=== PATIENT | female | born 1965 | race Caucasian/White ===

== ENCOUNTER 2016-05-13 21:18 | Emergency (ER) | payer MEDICARE, OTHER ==
[2016-05-13 21:33] VITALS: BP 131/65; PULSE 100; RESP 20; TEMP 98.4
[2016-05-13] MEDS ORDERED: FLUTICASONE 50MCG/SPRAY NASAL 16GM EA NOSTRIL STA (21:50)
--- NOTE | 2016-05-13 21:55 | ED ---
ENT HPI - General Chief complaint: ENT Stated complaint: Sore Throat/Ear Pain Time Seen by Provider: 05/13/16 21:44 Source: patient, RN notes reviewed Mode of arrival: ambulatory Limitations: no limitations - History of Present Illness Initial comments: 50-year-old female presents emergency Department chief complaint of right ear pain. Patient states that she has a history of his fluid behind the right ear and she needs to have sinus surgery however insurance has fell through. Patient states she is here because the fluid his back. Patient states with antibiotics about a month ago for this that didn't cleared up but it has returned. Patient states that she is also out of her Flonase spray as well. Patient states that she was concerned due to her continued symptoms so she thought that she should be evaluated. Patient denies any recent fever, chills, shortness of breath, chest pain, back pain, abdominal pain, nausea vomiting, numbness or tingling, dysuria or hematuria, constipation or diarrhea, headaches or visual changes, or any other current symptoms. - Related Data Home Medications Medication Instructions Recorded Confirmed Butalb/APAP/Caff 50-325-40Mg 1 tab PO Q4H PRN 09/21/15 05/13/16 [Fioricet 50-325-40] Morphine Sulfate ER [Ms Contin 30 mg PO Q12HR 09/21/15 05/13/16 30Mg] clonazePAM [KlonoPIN] 1 mg PO BID 01/18/16 05/13/16 Previous Rx's Medication Instructions Recorded Ciprofloxacin HCl [Cipro] 500 mg PO Q12HR #14 tablet 05/13/16 Allergies Allergy/AdvReac Type Severity Reaction Status Date / Time haloperidol [From Haldol] Allergy Unknown Verified 05/13/16 21:33 haloperidol lactate Allergy Unknown Verified 05/13/16 21:33 [From Haldol] latex Allergy Unknown Verified 05/13/16 21:33 aripiprazole [From Abilify] AdvReac Unknown Verified 05/13/16 21:33 gabapentin [From Neurontin] AdvReac Unknown Verified 05/13/16 21:33 risperidone [From Risperdal] AdvReac Unknown Verified 05/13/16 21:33 tramadol HCl [From Ultram] AdvReac Unknown Verified 05/13/16 21:33 ziprasidone HCl [From Geodon] AdvReac Unknown Verified 05/13/16 21:33 ziprasidone mesylate AdvReac Unknown Verified 05/13/16 21:33 [From Grant] Review of Systems ROS Statement: Those systems with pertinent positive or pertinent negative responses have been documented in the HPI. ROS Other: All systems not noted in ROS Statement are negative. Past Medical History Past Medical History: Fibromyalgia, Hypertension, Liver Disease, Osteoarthritis (OA), Seizure Disorder Additional Past Medical History / Comment(s): Other HX: hep c, chronic pain issues= chronic headaches chronic back pain, bronchitis, arthirits in back and bilateral hips. states quit iv drugs a couple of months ago History of Any Multi-Drug Resistant Organisms: None Reported Past Surgical History: Appendectomy, Back Surgery, Hysterectomy, Tubal Ligation Additional Past Surgical History / Comment(s): brain surgery for aneurysm has titanium clip in place., back surgery L4-L5, oral surgery. Past Anesthesia/Blood Transfusion Reactions: No Reported Reaction, Motion Sickness Additional Past Anesthesia/Blood Transfusion Reaction / Comment(s): Pt states she has never recieved blood. vertigo, clauterphobia Past Psychological History: Anxiety, Depression, Panic Disorder, PTSD Additional Psychological History / Comment(s): Pt resides in an apartment with her spouse. She states she used cocaine last nite and has a hx of IV drug use. She states she last used heroin 4-5 days ago. She states she is depressed and inactive. She lays around all the time. She denies any suicidal thoughts or plans stating " that is just selfish." She can drive. Smoking Status: Current every day smoker Past Alcohol Use History: None Reported Additional Past Alcohol Use History / Comment(s): Pt states she started smoking at age 11 yrs old. She smokes about a ppd. Past Drug Use History: None Reported Additional Drug Use History / Comment(s): Pt states she used cocaine last nite but doen't use it very often-only if someone else has bought it. She has hx of IV drug use and states she last used heroin 4-5days ago. - Past Family History Father Family Medical History: Cancer Additional Family Medical History / Comment(s): Father of throat cancer at 78 yrs of age. Mother Additional Family Medical History / Comment(s): Mother of a brain aneurysm at age 44. General Exam - General Exam Comments Initial Comments: General exam: Alert, active, comfortable in no apparent distress Head: Normocephalic Eyes: Normal reaction of pupils, equal size, normal range of extraocular motion Ears: normal external ear canals, pink tympanic membranes with normal cone of light fluid is noted behind both ears. Nose: clear with pink turbinates Throat: no erythema or exudates with normal sized tonsils Neck: no masses, no nuchal rigidity Chest: no chest wall deformity Lungs: equal air entry with no crackles or wheeze CVS: S1 and S2 normal with no audible mumurs, regular rhythm Abdomen: no hepatosplenomegaly, normal bowel sounds, no guarding or rigidity Genitourinary: [MALE: normal genitals with both testes in scrotum, no inguinal swelling] Spine: no scoliosis or deformity Skin: no rashes Neurological: No focal deficits, tone is normal in all 4 extremities Limitations: no limitations Course Vital Signs 05/13/16 21:31 Temperature 98.4 F Pulse Rate 100 Respiratory 20 Rate Blood Pressure 131/65 O2 Sat by Pulse 94 L Oximetry Medical Decision Making - Medical Decision Making 50-year-old female presents with what appears to be fluid behind the ears. At this time most likely due to sinus disease.Patient antibiotic. We will give her Flonase. We discussed follow-up with ENT and return parameters. Patient states that she understood all questions have been answered. She'll be discharged home. Disposition Clinical Impression: Fluid level behind tympanic membrane of both ears Disposition: HOME SELF-CARE Condition: Stable Instructions: Earache (ED) Additional Instructions: Please use medication as discussed. Please follow up with family doctor if symptoms have not improved over the next two days. Please return to the emergency room if your symptoms increase or worsen or for any other concerns. Prescriptions: Ciprofloxacin HCl [Cipro] 500 mg PO Q12HR #14 tablet Referrals: Zack Braxton DO [Primary Care Provider] - 1-2 days Time of Disposition: 21:54
== END 2016-05-13 22:12 | disposition home or self-care (01) ==
LOC: EC 21:18
DX: H93.93 Unspecified disorder of ear, bilateral (principal); G40.909 Epilepsy, unspecified, not intractable, without status epilepticus; M79.7 Fibromyalgia; M19.90 Unspecified osteoarthritis, unspecified site; F17.200 Nicotine dependence, unspecified, uncomplicated; Z79.891 Long term (current) use of opiate analgesic; Z79.899 Other long term (current) drug therapy; Z88.6 Allergy status to analgesic agent; Z88.8 Allergy status to other drugs, medicaments and biological substances; Z91.040 Latex allergy status
CPT/HCPCS: 99282

== ENCOUNTER 2016-05-16 08:29 | Emergency (ER) | payer SELFPAY ==
[2016-05-16 08:36] VITALS: BP 160/95; PULSE 101; RESP 22; TEMP 98.9
[2016-05-16] MEDS ORDERED: MECLIZINE 12.5 MG TAB PO STA (09:03)
[2016-05-16] MEDS ORDERED: MECLIZINE 25 MG TAB PO STA (09:05)
--- NOTE | 2016-05-16 09:05 | ED ---
General Adult HPI - General Chief complaint: Headache Stated complaint: vomitting, ENT Time Seen by Provider: 05/16/16 08:46 Source: patient, RN notes reviewed Mode of arrival: ambulatory Limitations: no limitations - History of Present Illness Initial comments: Patient 50-year-old female who presents emergency room today with a chief complaint of sinusitis. She does admit that she's been on antibiotics over the last month. Patient was over at [facility] emergency room this morning. She states she was told that she had vertigo. States she was given meclizine. She does admit that she is feeling somewhat better at this time. Patient does admit that she's had the room spinning on her. Does admit that she 's had vertigo in the past. States she does not have meclizine at home that she can take. Patient has been on antibiotics for her ear infection and sinus infection. She does admit that there has been improvement. She denies any other complaints. Patient denies any recent fever, chills, shortness of breath, chest pain, back pain, abdominal pain, nausea or vomiting, numbness or tingling , dysuria or hematuria, constipation or diarrhea, headaches or visual changes, or any other complaints. - Related Data Home Medications Medication Instructions Recorded Confirmed Morphine Sulfate ER [Ms Contin 30 mg PO Q12HR 09/21/15 05/16/16 30Mg] clonazePAM [KlonoPIN] 1 mg PO BID 01/18/16 05/16/16 Antivert (Unknown Dose) 1 tab PO ONCE 05/16/16 05/16/16 Previous Rx's Medication Instructions Recorded Ciprofloxacin HCl [Cipro] 500 mg PO Q12HR #14 tablet 05/13/16 Meclizine [Antivert] 25 mg PO DAILY 10 Days 05/16/16 Allergies Allergy/AdvReac Type Severity Reaction Status Date / Time haloperidol [From Haldol] Allergy Unknown Verified 05/16/16 08:50 haloperidol lactate Allergy Unknown Verified 05/16/16 08:50 [From Haldol] latex Allergy Unknown Verified 05/16/16 08:50 aripiprazole [From Abilify] AdvReac Unknown Verified 05/16/16 08:50 gabapentin [From Neurontin] AdvReac Unknown Verified 05/16/16 08:50 risperidone [From Risperdal] AdvReac Unknown Verified 05/16/16 08:50 tramadol HCl [From Ultram] AdvReac Unknown Verified 05/16/16 08:50 ziprasidone HCl [From Geodon] AdvReac Unknown Verified 05/16/16 08:50 ziprasidone mesylate AdvReac Unknown Verified 05/16/16 08:50 [From Geodon] Review of Systems ROS Statement: Those systems with pertinent positive or pertinent negative responses have been documented in the HPI. ROS Other: All systems not noted in ROS Statement are negative. Past Medical History Past Medical History: Fibromyalgia, Hypertension, Liver Disease, Osteoarthritis (OA), Seizure Disorder Additional Past Medical History / Comment(s): Other HX: hep c, chronic pain issues= chronic headaches chronic back pain, bronchitis, arthirits in back and bilateral hips. states quit iv drugs a couple of months ago History of Any Multi-Drug Resistant Organisms: None Reported Past Surgical History: Appendectomy, Back Surgery, Hysterectomy, Tubal Ligation Additional Past Surgical History / Comment(s): brain surgery for aneurysm has titanium clip in place., back surgery L4-L5, oral surgery. Past Anesthesia/Blood Transfusion Reactions: No Reported Reaction, Motion Sickness Additional Past Anesthesia/Blood Transfusion Reaction / Comment(s): Pt states she has never recieved blood. vertigo, clauterphobia Past Psychological History: Anxiety, Depression, Panic Disorder, PTSD Additional Psychological History / Comment(s): Pt resides in an apartment with her spouse. She states she used cocaine last nite and has a hx of IV drug use. She states she last used heroin 4-5 days ago. She states she is depressed and inactive. She lays around all the time. She denies any suicidal thoughts or plans stating " that is just selfish." She can drive. Smoking Status: Current every day smoker Past Alcohol Use History: None Reported Additional Past Alcohol Use History / Comment(s): Pt states she started smoking at age 11 yrs old. She smokes about a ppd. Past Drug Use History: None Reported Additional Drug Use History / Comment(s): Pt states she used cocaine last nite but doen't use it very often-only if someone else has bought it. She has hx of IV drug use and states she last used heroin 4-5days ago. - Past Family History Father Family Medical History: Cancer Additional Family Medical History / Comment(s): Father of throat cancer at 78 yrs of age. Mother Additional Family Medical History / Comment(s): Mother of a brain aneurysm at age 44. General Exam - General Exam Comments Initial Comments: General: The patient is awake and alert, in no distress, and does not appear acutely ill. Eye: Pupils are equal, round and reactive to light, extra-ocular movements are intact. No nystagmus. There is normal conjunctiva bilaterally. No signs of icterus. Ears, nose, mouth and throat: There are moist mucous membranes and no oral lesions. TMs clear bilaterally. Neck: The neck is supple, there is no tenderness or JVD. Cardiovascular: There is a regular rate and rhythm. No murmur, rub or gallop is appreciated. Respiratory: Lungs are clear to auscultation, respirations are non-labored, breath sounds are equal. No wheezes, stridor, rales, or rhonchi. Gastrointestinal: Soft, non-distended, non-tender abdomen without masses or organomegaly noted. There is no rebound or guarding present. No CVA tenderness. Bowel sounds are unremarkable. Musculoskeletal: Normal ROM, no tenderness. Strength 5/5. Sensation intact. Pulses equal bilaterally 2+. Neurological: A&O x 3. CN II-XII intact, There are no obvious motor or sensory deficits. Coordination appears grossly intact. Speech is normal. Skin: Skin is warm and dry and no rashes or lesions are noted. Psychiatric: Cooperative, appropriate mood & affect, normal judgment. Limitations: no limitations Course Vital Signs 05/16/16 08:34 Temperature 98.9 F Pulse Rate 101 H Respiratory 22 Rate Blood Pressure 160/95 O2 Sat by Pulse 97 Oximetry Medical Decision Making - Medical Decision Making Patient reexamined at this time shows no signs of distress. She does admit that she's feeling better. Patient advised continue previously prescribed medications. Will be given a prescription for meclizine. Advised to follow-up family doctor over the next 2 days or return here to emergency room if any symptoms increase or worsen or for new concerns. Disposition Clinical Impression: Sinusitis Disposition: HOME SELF-CARE Condition: Good Instructions: Sinusitis (ED) Additional Instructions: Please use medication as discussed. Please follow-up with family doctor in the next 2 days of symptoms have not improved. Please return to emergency room if the symptoms increase or worsen or for any other concerns. Prescriptions: Meclizine [Antivert] 25 mg PO DAILY 10 Days Time of Disposition: 09:04
== END 2016-05-16 09:10 | disposition home or self-care (01) ==
LOC: EC 08:29
DX: J32.9 Chronic sinusitis, unspecified (principal); R42 Dizziness and giddiness; M79.7 Fibromyalgia; M19.90 Unspecified osteoarthritis, unspecified site; G40.909 Epilepsy, unspecified, not intractable, without status epilepticus; F17.200 Nicotine dependence, unspecified, uncomplicated; Z79.899 Other long term (current) drug therapy; Z91.040 Latex allergy status; Z88.6 Allergy status to analgesic agent; Z88.8 Allergy status to other drugs, medicaments and biological substances
CPT/HCPCS: 99283

== ENCOUNTER 2016-05-17 19:39 | Emergency (ER) | payer SELFPAY ==
[2016-05-17 20:20] VITALS: BP 138/89; PULSE 71; RESP 18; TEMP 98
--- NOTE | 2016-05-17 20:58 | ED ---
General Adult HPI - General Chief complaint: ENT Stated complaint: nasal problem Time Seen by Provider: 05/17/16 20:34 Source: patient, RN notes reviewed Mode of arrival: ambulatory Limitations: no limitations - History of Present Illness Initial comments: This is a 50-year-old female who presents with complaints of possible sinus infection. Patient denies any congestion or sinus drainage. Patient states she is currently on ciprofloxacin. Patient states she has been on this antibiotic for 1 month, but is not feeling better. Patient states she is taking Antivert for vertigo. Patient's states she was diagnosed with vertigo one month ago. Patient states she feels that she has a sore inside of her nose. Patient denies trying any nasal sprays or nasal rinses for her symptoms. Patient admits to mild cough but states she is a smoker. Patient denies any fevers. Patient denies any recent shortness breath, chest pain, abdominal pain, nausea/vomiting/ diarrhea, back pain, numbness, tingling, hematuria, headache, or visual changes , or any other complaints. - Related Data Home Medications Medication Instructions Recorded Confirmed Morphine Sulfate ER [Ms Contin 30 mg PO Q12HR 09/21/15 05/17/16 30Mg] clonazePAM [KlonoPIN] 1 mg PO BID 01/18/16 05/17/16 Antivert (Unknown Dose) 1 tab PO ONCE 05/16/16 05/17/16 Previous Rx's Medication Instructions Recorded Ciprofloxacin HCl [Cipro] 500 mg PO Q12HR #14 tablet 05/13/16 Meclizine [Antivert] 25 mg PO DAILY 10 Days 05/16/16 Allergies Allergy/AdvReac Type Severity Reaction Status Date / Time haloperidol [From Haldol] Allergy Unknown Verified 05/16/16 08:50 haloperidol lactate Allergy Unknown Verified 05/16/16 08:50 [From Haldol] latex Allergy Unknown Verified 05/16/16 08:50 aripiprazole [From Abilify] AdvReac Unknown Verified 05/16/16 08:50 gabapentin [From Neurontin] AdvReac Unknown Verified 05/16/16 08:50 risperidone [From Risperdal] AdvReac Unknown Verified 05/16/16 08:50 tramadol HCl [From Ultram] AdvReac Unknown Verified 05/16/16 08:50 ziprasidone HCl [From Geodon] AdvReac Unknown Verified 05/16/16 08:50 ziprasidone mesylate AdvReac Unknown Verified 05/16/16 08:50 [From Grant] Review of Systems ROS Statement: Those systems with pertinent positive or pertinent negative responses have been documented in the HPI. ROS Other: All systems not noted in ROS Statement are negative. Past Medical History Past Medical History: Fibromyalgia, Hypertension, Liver Disease, Osteoarthritis (OA), Seizure Disorder Additional Past Medical History / Comment(s): Other HX: hep c, chronic pain issues= chronic headaches chronic back pain, bronchitis, arthirits in back and bilateral hips. states quit iv drugs a couple of months ago History of Any Multi-Drug Resistant Organisms: None Reported Past Surgical History: Appendectomy, Back Surgery, Hysterectomy, Tubal Ligation Additional Past Surgical History / Comment(s): brain surgery for aneurysm has titanium clip in place., back surgery L4-L5, oral surgery. Past Anesthesia/Blood Transfusion Reactions: No Reported Reaction, Motion Sickness Additional Past Anesthesia/Blood Transfusion Reaction / Comment(s): Pt states she has never recieved blood. vertigo, clauterphobia Past Psychological History: Anxiety, Depression, Panic Disorder, PTSD Additional Psychological History / Comment(s): Pt resides in an apartment with her spouse. She states she used cocaine last nite and has a hx of IV drug use. She states she last used heroin 4-5 days ago. She states she is depressed and inactive. She lays around all the time. She denies any suicidal thoughts or plans stating " that is just selfish." She can drive. Smoking Status: Current every day smoker Past Alcohol Use History: None Reported Additional Past Alcohol Use History / Comment(s): Pt states she started smoking at age 11 yrs old. She smokes about a ppd. Past Drug Use History: None Reported Additional Drug Use History / Comment(s): Pt states she used cocaine last nite but doen't use it very often-only if someone else has bought it. She has hx of IV drug use and states she last used heroin 4-5days ago. - Past Family History Father Family Medical History: Cancer Additional Family Medical History / Comment(s): Father of throat cancer at 78 yrs of age. Mother Additional Family Medical History / Comment(s): Mother of a brain aneurysm at age 44. General Exam - General Exam Comments Initial Comments: General: The patient is awake and alert, in no distress, and does not appear acutely ill. Eye: Pupils are equal, round and reactive to light, extra-ocular movements are intact. No pain with extraocular movements. No nystagmus. There is normal conjunctiva bilaterally. No signs of icterus. Ears: TMs pink and pearly with intact cone of light bilaterally. Normal external ear canals Nose: Nasal turbinates erythematous and moist. Mouth and throat: There are moist mucous membranes and no oral lesions. Neck: The neck is supple,no meningismus, there is no tenderness or JVD. Cardiovascular: There is a regular rate and rhythm. No murmur, rub or gallop is appreciated. Respiratory: Lungs are clear to auscultation, respirations are non-labored, breath sounds are equal. No wheezes, stridor, rales, or rhonchi. Musculoskeletal: Normal ROM, no tenderness. Strength 5/5. Sensation intact. Radial pulses equal bilaterally 2+. Neurological: A&O x 3. CN II-XII intact, There are no obvious motor or sensory deficits. Coordination appears grossly intact. Speech is normal. Skin: Skin is warm and dry and no rashes or lesions are noted. Psychiatric: Abrasive, appropriate mood & affect, normal judgment. Limitations: no limitations Course Vital Signs 05/17/16 20:16 Temperature 98.0 F Pulse Rate 71 Respiratory 18 Rate Blood Pressure 138/89 O2 Sat by Pulse 98 Oximetry Medical Decision Making - Medical Decision Making During the interview patient was very abrasive and started stating "why wont anyone do anything for me." I discussed that patient needs to tell me what her symptoms are before I can do anything for her, but the patient would not explain in detail. Patient stated she came in for sinusitis but patient denies symptoms of sinusitis such as congestion, sinus pressure, and fever. I discussed options for nasal spray for nasal rinses to help with her symptoms. I discussed that patient should continue her current course of antibiotics. I discussed doing a chest x-ray as patient admitted to cough. I discussed that I would be right back to talk with the patient further and at this time patient eloped. Disposition Clinical Impression: Hx of sinusitis, Hx of vertigo Disposition: Left Against Medical Advice Referrals: Zack Braxton, [Primary Care Provider] - 1-2 days Time of Disposition: 21:59
== END 2016-05-17 20:55 | disposition left against medical advice (07) ==
LOC: EC 19:39
DX: Z87.09 Personal history of other diseases of the respiratory system (principal); R05 Cough; R42 Dizziness and giddiness; G40.909 Epilepsy, unspecified, not intractable, without status epilepticus; M79.7 Fibromyalgia; M19.90 Unspecified osteoarthritis, unspecified site; F41.0 Panic disorder [episodic paroxysmal anxiety]; F41.9 Anxiety disorder, unspecified; F17.200 Nicotine dependence, unspecified, uncomplicated; Z79.891 Long term (current) use of opiate analgesic; Z79.899 Other long term (current) drug therapy; Z91.040 Latex allergy status; Z88.8 Allergy status to other drugs, medicaments and biological substances; Z86.19 Personal history of other infectious and parasitic diseases
CPT/HCPCS: 99282

== ENCOUNTER 2016-05-29 08:29 | Emergency (ER) | payer MEDICARE, OTHER ==
[2016-05-29 08:54] VITALS: BP 105/65; RESP 18; TEMP 98.3
[2016-05-29] MEDS ORDERED: SODIUM CHLORIDE 0.9% 500 ML IV STA (09:14)
[2016-05-29] MEDS ORDERED: SODIUM CHLORIDE 0.9% 1,000 ML IV STA (09:14)
[2016-05-29] MEDS ORDERED: IPRATROPIUM-ALBUTEROL 3 ML NEB INHALATION STA (09:14)
[2016-05-29] MEDS ORDERED: methylPREDNISolone SOD SUCCI 125 MG/2 ML VIAL IV STA (09:14)
[2016-05-29] MEDS ORDERED: ONDANSETRON 4 MG/2 ML VIAL IVP STA (09:16)
[2016-05-29] MEDS ORDERED: ACETAMINOPHEN TAB 500 MG TAB PO STA (09:17)
--- NOTE | 2016-05-29 09:30 | ED ---
General Adult HPI - General Chief complaint: Upper Respiratory Infection Stated complaint: Diff breathing Time Seen by Provider: 05/29/16 08:52 Source: patient Mode of arrival: wheelchair - History of Present Illness Initial comments: This 50-year-old white female presents with the complaint of a cough which is been present for approximate 4 days. She complains of chest and nasal congestion. She has tried updraft at home of albuterol with limited relief. She does relate a degree of hemoptysis with her cough but denies any colored production. She feels short of breath but denies any chest pain or fever. She states that she is having some abdominal pain which she feels is related to her significant cough. She complains of some chronic low back pain on the left side. She has had some nausea but no vomiting. No other complaints or modifying factors. She does relate that she is currently on Diflucan for a fungal sinusitis which she's been dealing with for the past couple of months. This medication has significantly helped her sinusitis. - Related Data Home Medications Medication Instructions Recorded Confirmed Morphine Sulfate ER [Ms Contin 30 mg PO Q12HR 09/21/15 05/29/16 30Mg] clonazePAM [KlonoPIN] 1 mg PO BID 01/18/16 05/29/16 Fluconazole [Diflucan] 200 mg PO DAILY 05/29/16 05/29/16 Allergies Allergy/AdvReac Type Severity Reaction Status Date / Time haloperidol [From Haldol] Allergy Unknown Verified 05/29/16 09:27 haloperidol lactate Allergy Unknown Verified 05/29/16 09:27 [From Haldol] ketorolac [From Toradol] Allergy Anaphylaxis Verified 05/29/16 09:27 latex Allergy Unknown Verified 05/29/16 09:27 aripiprazole [From Abilify] AdvReac Unknown Verified 05/29/16 09:27 gabapentin [From Neurontin] AdvReac Unknown Verified 05/29/16 09:27 risperidone [From Risperdal] AdvReac Unknown Verified 05/29/16 09:27 tramadol HCl [From Ultram] AdvReac Unknown Verified 05/29/16 09:27 ziprasidone HCl [From Geodon] AdvReac Unknown Verified 05/29/16 09:27 ziprasidone mesylate AdvReac Unknown Verified 05/29/16 09:27 [From Geodon] Review of Systems ROS Statement: Those systems with pertinent positive or pertinent negative responses have been documented in the HPI. ROS Other: All systems not noted in ROS Statement are negative. Past Medical History Past Medical History: Fibromyalgia, Hypertension, Liver Disease, Osteoarthritis (OA), Seizure Disorder Additional Past Medical History / Comment(s): Other HX: hep c, chronic pain issues= chronic headaches chronic back pain, bronchitis, arthirits in back and bilateral hips History of Any Multi-Drug Resistant Organisms: None Reported Past Surgical History: Appendectomy, Back Surgery, Hysterectomy, Tubal Ligation Additional Past Surgical History / Comment(s): brain surgery for aneurysm has titanium clip in place., back surgery L4-L5, oral surgery. Past Anesthesia/Blood Transfusion Reactions: No Reported Reaction, Motion Sickness Additional Past Anesthesia/Blood Transfusion Reaction / Comment(s): Pt states she has never recieved blood. vertigo, clauterphobia Past Psychological History: Anxiety, Depression, Panic Disorder, PTSD Additional Psychological History / Comment(s): Pt resides in an apartment with her spouse. She states she used cocaine last nite and has a hx of IV drug use. She states she last used heroin 4-5 days ago. She states she is depressed and inactive. She lays around all the time. She denies any suicidal thoughts or plans stating " that is just selfish." She can drive. Smoking Status: Current every day smoker Past Alcohol Use History: None Reported Additional Past Alcohol Use History / Comment(s): Pt states she started smoking at age 11 yrs old. She smokes about a ppd. Past Drug Use History: None Reported Additional Drug Use History / Comment(s): Pt states she used cocaine last nite but doen't use it very often-only if someone else has bought it. She has hx of IV drug use and states she last used heroin 4-5days ago. - Past Family History Father Family Medical History: Cancer Additional Family Medical History / Comment(s): Father of throat cancer at 78 yrs of age. Mother Additional Family Medical History / Comment(s): Mother of a brain aneurysm at age 44. General Exam - General Exam Comments Initial Comments: GENERAL: The patient is well nourished and well hydrated. VITAL SIGNS: Heart rate, blood pressure, respiratory rate reviewed as recorded in nurse's notes. EYES: Pupils are round and reactive. Extraocular movements are intact. No conjunctival / lid redness or swelling. ENT: No external evidence of injury, swelling, or ecchymosis. Airway is patent. Throat is clear. NECK: Nontender. No swelling or evidence of injury. No subcutaneous emphysema. Trachea is midline. No thyroid mass. HEART: Regular rate and rhythm. Good peripheral pulses. LUNGS/CHEST: There is wheezing noted bilaterally. No ecchymosis, subcutaneous emphysema, or tenderness. ABDOMEN: Abdomen soft without tenderness. No palpable masses or organomegaly. No peritoneal signs. No abdominal wall swelling or ecchymosis. EXTREMITIES: No extremity tenderness. Normal muscle tone and function. No thoracolumbar tenderness. NEUROLOGIC: Sensation is grossly intact. Cranial nerve exam reveals face is symmetrical, tongue is midline, speech is clear. SKIN: No abrasions or ecchymosis is noted. No induration or masses noted. PSYCHIATRIC: Alert and oriented. Appears mildly anxious. Course Vital Signs 05/29/16 05/29/16 05/29/16 08:51 09:39 10:00 Temperature 98.3 F Pulse Rate 85 84 88 Respiratory 18 Rate Blood Pressure 105/65 O2 Sat by Pulse 95 Oximetry Medical Decision Making - Medical Decision Making The patient was seen and examined. All diagnostics were reviewed. The chest and abdominal x-rays did not show any acute process. The laboratory was fairly unremarkable other than a slight transaminitis. The influenza was negative. The patient received a DuoNeb breathing treatment. She related to the nurse that she had remarkable improvement. I was still waiting for the radiologist to read the x-rays and for her labs to come back when she apparently decided to leave the ER. She told the nurse that she felt better with the breathing treatment and left AGAINST MEDICAL ADVICE prior to final disposition. - Lab Data Result diagrams: 05/29/16 09:45 05/29/16 09:45 Lab Results 05/29/16 05/29/16 05/29/16 Range/Units 09:45 09:45 09:45 WBC 5.5 (3.8-10.6) k/uL RBC 4.10 (3.80-5.40) m/uL Hgb 12.2 (11.4-16.0) gm/dL Hct 37.1 (34.0-46.0) % MCV 90.4 (80.0-100.0) fL MCH 29.7 (25.0-35.0) pg MCHC 32.9 (31.0-37.0) g/dL RDW 13.1 (11.5-15.5) % Sodium 139 (137-145) mmol/L Potassium 5.0 (3.5-5.1) mmol/L Chloride 105 (98-107) mmol/L Carbon Dioxide 24 (22-30) mmol/L Anion Gap 10 mmol/L BUN 11 (7-17) mg/dL Creatinine 0.65 (0.52-1.04) mg/dL Est GFR (MDRD) Af Amer >60 (>60 ml/min/1.73 sqM) Est GFR (MDRD) Non-Af >60 (>60 ml/min/1.73 sqM) Glucose 145 H (74-99) mg/dL Calcium 8.8 (8.4-10.2) mg/dL Total Bilirubin 0.4 (0.2-1.3) mg/dL AST 58 H (14-36) U/L ALT 64 H (9-52) U/L Alkaline Phosphatase 60 (38-126) U/L Total Protein 6.6 (6.3-8.2) g/dL Albumin 3.8 (3.5-5.0) g/dL Amylase <30 L (30-110) U/L Lipase 55 (23-300) U/L Influenza Type A RNA Not Detected (Not Detectd) Influenza Type B (PCR) Not Detected (Not Detectd) Disposition Clinical Impression: Bronchitis, Hemoptysis, COPD (chronic obstructive pulmonary disease), Tobacco abuse, Abdominal pain, Transaminitis, Dyspnea, Chronic pain Disposition: Left Against Medical Advice Condition: Fair Referrals: Zack Braxton DO [Primary Care Provider] - 1-2 days Time of Disposition: 11:00
[2016-05-29 10:11] VITALS: PULSE 88
--- NOTE | 2016-05-29 10:29 | XR ---
EXAMINATION TYPE: XR chest 2V DATE OF EXAM: 05/29/2016 10:16 AM COMPARISON: Prior chest x-ray October 26, 2014. HISTORY: Difficulty in breathing. TECHNIQUE: Frontal and lateral views of the chest are obtained. FINDINGS: There is no focal air space opacity, pleural effusion, or pneumothorax seen. Underlying e mphysematous change is not excluded. The cardiac silhouette size is within normal limits. The osseo us structures are intact. IMPRESSION: No acute cardiopulmonary process. No significant change from prior.
[2016-05-29 10:34] LABS: Basophils % (A) 0 %; CH 29.1; CHCM 32.4; Eosinophils # (A) 0.4 k/uL (0-0.7); Eosinophils % (A) 7 %; HCT 37.1 % (34.0-46.0); HDW 2.35; HGB 12.2 gm/dL (11.4-16.0); Luc # (Auto) 0.12; Luc % (Auto) 2; Lymphocytes # (A) 1.3 k/uL (1.0-4.8); Lymphocytes % (A) 23 %; MCH 29.7 pg (25.0-35.0); MCHC 32.9 g/dL (31.0-37.0); MCV 90.4 fL (80.0-100.0); Mean Platelet Volume 8.5; Monocytes # (A) 0.3 k/uL (0-1.0); Monocytes % (A) 6 %; Neutrophils # (A) 3.4 k/uL (1.3-7.7); Neutrophils % (A) 62 %; RDW 13.1 % (11.5-15.5); WBC 5.5 k/uL (3.8-10.6); WBC (Perox) 5.92
[2016-05-29 10:37] LABS: ALT 64 U/L (9-52); AST 58 U/L (14-36); Alkaline Phosphatase 60 U/L (38-126); Amylase <30 U/L (30-110); Anion Gap 10 mmol/L; Blood Urea Nitrogen 11 mg/dL (7-17); Calcium 8.8 mg/dL (8.4-10.2); Carbon Dioxide 24 mmol/L (22-30); Chloride 105 mmol/L (98-107); Glucose 145 mg/dL (74-99); Non-African American GFR(MDRD) >60 (>60 ml/min/1.73 sqM); Sodium 139 mmol/L (137-145); Total Bilirubin 0.4 mg/dL (0.2-1.3); Total Protein 6.6 g/dL (6.3-8.2)
--- NOTE | 2016-05-29 10:52 | XR ---
EXAMINATION TYPE: XR abdomen 2V DATE OF EXAM ORDERED: 05/29/2016 10:15 AM HISTORY: abdominal pain. COMPARISON: Previous study dated 01/18/2016. FINDINGS: The abdominal gas pattern is normal. There is no evidence of obstruction or free air. Ther e is a solitary phlebolith in the right hemipelvis. IMPRESSION: NO ACUTE INTRA-ABDOMINAL ABNORMALITY.
[2016-05-29 11:38] LABS: Manual Review Performed
[2016-05-29 11:39] LABS: RBC Morphology Normal
== END 2016-05-29 10:58 | disposition left against medical advice (07) ==
LOC: EC 08:29
DX: R04.2 Hemoptysis (principal); J44.9 Chronic obstructive pulmonary disease, unspecified; R10.9 Unspecified abdominal pain; R74.0 Nonspecific elevation of levels of transaminase and lactic acid dehydrogenase [LDH]; M54.5 Low back pain; G89.29 Other chronic pain; G40.909 Epilepsy, unspecified, not intractable, without status epilepticus; F17.200 Nicotine dependence, unspecified, uncomplicated; Z53.21 Procedure and treatment not carried out due to patient leaving prior to being seen by health care provider; Z88.8 Allergy status to other drugs, medicaments and biological substances; Z88.6 Allergy status to analgesic agent; Z79.899 Other long term (current) drug therapy
CPT/HCPCS: 99284; 96374; 96375; 96361; 36415; 94640; 80053; 82150; 83690; 85025; 87040; 87502; 71020; 74020; J2930; J2405

== ENCOUNTER 2016-06-11 01:29 | Emergency (ER) | payer MEDICARE, OTHER ==
[2016-06-11 01:38] VITALS: TEMP 98.7
[2016-06-11] MEDS ORDERED: MORPHINE SULFATE 4 MG/ML SYRINGE IV STA (02:17)
[2016-06-11] MEDS ORDERED: SODIUM CHLORIDE 0.9% 500 ML IV STA (02:17)
[2016-06-11] MEDS ORDERED: ONDANSETRON 4 MG/2 ML VIAL IVP STA (02:17)
[2016-06-11 02:38] LABS: Basophils # (A) 0.1 k/uL (0-0.2); Basophils % (A) 1 %; CH 29.7; CHCM 33.9; Eosinophils # (A) 0.2 k/uL (0-0.7); Eosinophils % (A) 2 %; HCT 42.3 % (34.0-46.0); HDW 2.61; HGB 14.4 gm/dL (11.4-16.0); Luc # (Auto) 0.28; Luc % (Auto) 3; Lymphocytes # (A) 1.6 k/uL (1.0-4.8); Lymphocytes % (A) 16 %; Mean Platelet Volume 8.4; Monocytes # (A) 0.5 k/uL (0-1.0); Monocytes % (A) 5 %; Neutrophils # (A) 7.6 k/uL (1.3-7.7); Neutrophils % (A) 74 %; RDW 12.9 % (11.5-15.5); WBC 10.2 k/uL (3.8-10.6); WBC (Perox) 9.95
[2016-06-11 02:46] LABS: Amorphous Sediment,Urine Rare /hpf; Appearance,Urine Cloudy (Clear); Bilirubin,Urine Negative (Negative); Glucose,Urine (UA) Negative (Negative); Ketones,Urine Negative (Negative); Leukocyte Esterase,Urine Negative (Negative); Mucus,Urine Rare /hpf; Nitrite,Urine Negative (Negative); Particle Count 22311; Protein,Urine Negative (Negative); RBC,Urine 2 /hpf (0-5); Specific Gravity,Urine 1.018 (1.001-1.035); UA Billing (MACRO vs. MICRO) MICRO; Urobilinogen,Urine <2.0 mg/dL (<2.0); WBC,Urine 1 /hpf (0-5)
[2016-06-11 02:50] LABS: ALT 45 U/L (9-52); AST 41 U/L (14-36); Alkaline Phosphatase 77 U/L (38-126); Amylase 45 U/L (30-110); Anion Gap 12 mmol/L; Blood Urea Nitrogen 12 mg/dL (7-17); Calcium 9.4 mg/dL (8.4-10.2); Carbon Dioxide 24 mmol/L (22-30); Chloride 104 mmol/L (98-107); Glucose 143 mg/dL (74-99); Non-African American GFR(MDRD) >60 (>60 ml/min/1.73 sqM); Sodium 140 mmol/L (137-145); Total Bilirubin 0.6 mg/dL (0.2-1.3); Total Protein 8.2 g/dL (6.3-8.2)
--- NOTE | 2016-06-11 03:08 | XR ---
EXAM: XR Kub. CLINICAL HISTORY: Reason: abdominal pain COMPARISON: 05/29/16 FINDINGS: Flanks clip. Nonspecific nonobstructive bowel gas pattern. Upright views. There are couple segments of small bowel which are mildly distended up to about 2.8 cm in caliber. There is still colonic gas seen. May represent localized ileus. No subdiaphragmatic air is seen. Suspected phleboliths again noted as well as unchanged sclerotic focus in the left proximal femur. IMPRESSION: Nonspecific, nonobstructive bowel gas pattern, as above.
--- NOTE | 2016-06-11 04:23 | ED ---
Abdominal Pain HPI - General Chief Complaint: Abdominal Pain Stated Complaint: Abd Pain-Dx Pancreatic Cyst Time Seen by Provider: 06/11/16 01:47 Source: patient, family Mode of arrival: ambulatory Limitations: no limitations - Related Data Home Medications Medication Instructions Recorded Confirmed Morphine Sulfate ER [Ms Contin 30 mg PO Q12HR 09/21/15 06/11/16 30Mg] clonazePAM [KlonoPIN] 1 mg PO BID 01/18/16 06/11/16 Fluconazole [Diflucan] 200 mg PO DAILY 05/29/16 06/11/16 Previous Rx's Medication Instructions Recorded Ondansetron Odt [Zofran ODT] 4 mg PO Q8HR PRN #10 tab 06/11/16 Allergies Allergy/AdvReac Type Severity Reaction Status Date / Time haloperidol [From Haldol] Allergy Unknown Verified 06/11/16 01:38 haloperidol lactate Allergy Unknown Verified 06/11/16 01:38 [From Haldol] ketorolac [From Toradol] Allergy Anaphylaxis Verified 06/11/16 01:38 latex Allergy Unknown Verified 06/11/16 01:38 aripiprazole [From Abilify] AdvReac Unknown Verified 06/11/16 01:38 gabapentin [From Neurontin] AdvReac Unknown Verified 06/11/16 01:38 risperidone [From Risperdal] AdvReac Unknown Verified 06/11/16 01:38 tramadol HCl [From Ultram] AdvReac Unknown Verified 06/11/16 01:38 ziprasidone HCl [From Geodon] AdvReac Unknown Verified 06/11/16 01:38 ziprasidone mesylate AdvReac Unknown Verified 06/11/16 01:38 [From Geodon] Review of Systems ROS Statement: Those systems with pertinent positive or pertinent negative responses have been documented in the HPI. ROS Other: All systems not noted in ROS Statement are negative. Past Medical History Past Medical History: Fibromyalgia, Hypertension, Liver Disease, Osteoarthritis (OA), Seizure Disorder Additional Past Medical History / Comment(s): Other HX: hep c, chronic pain issues= chronic headaches chronic back pain, bronchitis, arthirits in back and bilateral hips, pancreatic cyst History of Any Multi-Drug Resistant Organisms: None Reported Past Surgical History: Appendectomy, Back Surgery, Hysterectomy, Tubal Ligation Additional Past Surgical History / Comment(s): brain surgery for aneurysm has titanium clip in place., back surgery L4-L5, oral surgery. Past Anesthesia/Blood Transfusion Reactions: No Reported Reaction, Motion Sickness Additional Past Anesthesia/Blood Transfusion Reaction / Comment(s): Pt states she has never recieved blood. vertigo, clauterphobia Past Psychological History: Anxiety, Depression, Panic Disorder, PTSD Additional Psychological History / Comment(s): Pt resides in an apartment with her spouse. She states she used cocaine last nite and has a hx of IV drug use. She states she last used heroin 4-5 days ago. She states she is depressed and inactive. She lays around all the time. She denies any suicidal thoughts or plans stating " that is just selfish." She can drive. Smoking Status: Current every day smoker Past Alcohol Use History: None Reported Additional Past Alcohol Use History / Comment(s): Pt states she started smoking at age 11 yrs old. She smokes about a ppd. Past Drug Use History: None Reported Additional Drug Use History / Comment(s): Pt states she used cocaine last nite but doen't use it very often-only if someone else has bought it. She has hx of IV drug use and states she last used heroin 4-5days ago. - Past Family History Father Family Medical History: Cancer Additional Family Medical History / Comment(s): Father of throat cancer at 78 yrs of age. Mother Additional Family Medical History / Comment(s): Mother of a brain aneurysm at age 44. General Exam Limitations: no limitations Course Vital Signs 06/11/16 01:35 Temperature 98.7 F Pulse Rate 113 H Respiratory 22 Rate Blood Pressure 124/95 O2 Sat by Pulse 96 Oximetry Medical Decision Making - Lab Data Result diagrams: 06/11/16 01:54 06/11/16 01:54 Lab Results 06/11/16 06/11/16 06/11/16 Range/Units 01:54 01:54 01:54 WBC 10.2 (3.8-10.6) k/uL RBC 4.80 (3.80-5.40) m/uL Hgb 14.4 (11.4-16.0) gm/dL Hct 42.3 (34.0-46.0) % MCV 88.0 (80.0-100.0) fL MCH 30.0 (25.0-35.0) pg MCHC 34.0 (31.0-37.0) g/dL RDW 12.9 (11.5-15.5) % Plt Count 113 L (150-450) k/uL Neutrophils % 74 % Lymphocytes % 16 % Monocytes % 5 % Eosinophils % 2 % Basophils % 1 % Neutrophils # 7.6 (1.3-7.7) k/uL Lymphocytes # 1.6 (1.0-4.8) k/uL Monocytes # 0.5 (0-1.0) k/uL Eosinophils # 0.2 (0-0.7) k/uL Basophils # 0.1 (0-0.2) k/uL Sodium 140 (137-145) mmol/L Potassium 4.0 (3.5-5.1) mmol/L Chloride 104 (98-107) mmol/L Carbon Dioxide 24 (22-30) mmol/L Anion Gap 12 mmol/L BUN 12 (7-17) mg/dL Creatinine 0.70 (0.52-1.04) mg/dL Est GFR (MDRD) Af Amer >60 (>60 ml/min/1.73 sqM) Est GFR (MDRD) Non-Af >60 (>60 ml/min/1.73 sqM) Glucose 143 H (74-99) mg/dL Plasma Lactic Acid Giovani (0.7-2.0) mmol/L Calcium 9.4 (8.4-10.2) mg/dL Total Bilirubin 0.6 (0.2-1.3) mg/dL AST 41 H (14-36) U/L ALT 45 (9-52) U/L Alkaline Phosphatase 77 (38-126) U/L Total Protein 8.2 (6.3-8.2) g/dL Albumin 4.5 (3.5-5.0) g/dL Amylase 45 (30-110) U/L Lipase 52 (23-300) U/L Urine Color Yellow Urine Appearance Cloudy H (Clear) Urine pH 7.0 (5.0-8.0) Ur Specific [place] 1.018 (1.001-1.035) Urine Protein Negative (Negative) Urine Glucose (UA) Negative (Negative) Urine Ketones Negative (Negative) Urine Blood Negative (Negative) Urine Nitrite Negative (Negative) Urine Bilirubin Negative (Negative) Urine Urobilinogen <2.0 (<2.0) mg/dL Ur Leukocyte Esterase Negative (Negative) Urine RBC 2 (0-5) /hpf Urine WBC 1 (0-5) /hpf Amorphous Sediment Rare H (None) /hpf Urine Mucus Rare H (None) /hpf 06/11/16 Range/Units 03:01 WBC (3.8-10.6) k/uL RBC (3.80-5.40) m/uL Hgb (11.4-16.0) gm/dL Hct (34.0-46.0) % MCV (80.0-100.0) fL MCH (25.0-35.0) pg MCHC (31.0-37.0) g/dL RDW (11.5-15.5) % Plt Count (150-450) k/uL Neutrophils % % Lymphocytes % % Monocytes % % Eosinophils % % Basophils % % Neutrophils # (1.3-7.7) k/uL Lymphocytes # (1.0-4.8) k/uL Monocytes # (0-1.0) k/uL Eosinophils # (0-0.7) k/uL Basophils # (0-0.2) k/uL Sodium (137-145) mmol/L Potassium (3.5-5.1) mmol/L Chloride (98-107) mmol/L Carbon Dioxide (22-30) mmol/L Anion Gap mmol/L BUN (7-17) mg/dL Creatinine (0.52-1.04) mg/dL Est GFR (MDRD) Af Amer (>60 ml/min/1.73 sqM) Est GFR (MDRD) Non-Af (>60 ml/min/1.73 sqM) Glucose (74-99) mg/dL Plasma Lactic Acid Giovani 0.8 (0.7-2.0) mmol/L Calcium (8.4-10.2) mg/dL Total Bilirubin (0.2-1.3) mg/dL AST (14-36) U/L ALT (9-52) U/L Alkaline Phosphatase (38-126) U/L Total Protein (6.3-8.2) g/dL Albumin (3.5-5.0) g/dL Amylase (30-110) U/L Lipase (23-300) U/L Urine Color Urine Appearance (Clear) Urine pH (5.0-8.0) Ur Specific [place] (1.001-1.035) Urine Protein (Negative) Urine Glucose (UA) (Negative) Urine Ketones (Negative) Urine Blood (Negative) Urine Nitrite (Negative) Urine Bilirubin (Negative) Urine Urobilinogen (<2.0) mg/dL Ur Leukocyte Esterase (Negative) Urine RBC (0-5) /hpf Urine WBC (0-5) /hpf Amorphous Sediment (None) /hpf Urine Mucus (None) /hpf Disposition Clinical Impression: Abdominal pain Disposition: HOME SELF-CARE Condition: Fair Instructions: Abdominal Pain (ED) Prescriptions: Ondansetron Odt [Zofran ODT] 4 mg PO Q8HR PRN #10 tab PRN Reason: Nausea Referrals: Zack Braxton DO [Primary Care Provider] - 1-2 days Dexter Gurrola MD [STAFF PHYSICIAN] - 1-2 days
[2016-06-11 04:59] VITALS: BP 118/81; PULSE 96; RESP 16
== END 2016-06-11 04:56 | disposition home or self-care (01) ==
LOC: EC 01:29
DX: R10.9 Unspecified abdominal pain (principal); M79.7 Fibromyalgia; M19.90 Unspecified osteoarthritis, unspecified site; G40.909 Epilepsy, unspecified, not intractable, without status epilepticus; F41.9 Anxiety disorder, unspecified; F41.0 Panic disorder [episodic paroxysmal anxiety]; F32.9 Major depressive disorder, single episode, unspecified; Z79.899 Other long term (current) drug therapy; Z88.8 Allergy status to other drugs, medicaments and biological substances; Z88.6 Allergy status to analgesic agent; Z91.040 Latex allergy status; F17.200 Nicotine dependence, unspecified, uncomplicated; Z90.49 Acquired absence of other specified parts of digestive tract; Z90.710 Acquired absence of both cervix and uterus
CPT/HCPCS: 99284; 96374; 96375; 36415; 80053; 82150; 83605; 83690; 85025; 81001; 74000; J2270; J2405

== ENCOUNTER → 2016-07-07 | Outpatient (CLI) | payer SELFPAY ==
--- NOTE | 2016-07-07 08:53 | CT ---
EXAMINATION TYPE: CT abdomen wo/w con DATE OF EXAM: 07/07/2016 8:24 AM REFERENCE: NONE HISTORY: R10.11 RUQ pain HISTORY: RUQ pain REFERENCE: Previous study dated 01/18/2016. CT DLP: 1024.4 mGy Automated exposure control for dose reduction was used. TECHNIQUE: Helical acquisition through the abdomen and pelvis was obtained following the oral ingesti on of with Oral Contrast and following intravenous administration of 100 mL of Omnipaque 300. The channing a was reformatted in axial, coronal and sagittal projections. FINDINGS: There is minimal dependent atelectasis in the dependent portions of the lungs. There is no pleural or pericardial fluid. The heart is not enlarged. Within the abdomen, there is hepatosplenomegaly. The liver measures 20 cm. The spleen measures 15 cm. Previously the liver measured 21 cm and the spleen measures 15 cm. The gallbladder is contracted. Both adrenal glands are normal. There is a stable 1.5 cm cyst in the upper pole of the left kidney. The right kidney appears normal. The pancreas is unremarkable. There is no significant retroperitoneal adenopathy. Visualized portions of the large and small bowel appear unremarkable. No free fluid and no free air is seen. There is degenerative disc disease and hypertrophic spondylosis within the upper lumbar spine. No bon y destructive lesion is seen. IMPRESSION: 1. STABLE HEPATOSPLENOMEGALY. 2. STABLE, 1.5 CM CYST IN THE UPPER POLE OF THE LEFT KIDNEY. 3. DEGENERATIVE CHANGES WITHIN THE SPINE.
== END | disposition home or self-care (01) ==
LOC: RADCTMAIN 07:38
DX: R16.0 Hepatomegaly, not elsewhere classified (principal); N28.1 Cyst of kidney, acquired
CPT/HCPCS: 74170; Q9967

== ENCOUNTER 2016-09-14 04:21 | Emergency (ER) | payer SELFPAY ==
[2016-09-14 04:28] VITALS: BP 126/100; PULSE 102; RESP 20; TEMP 97.8
--- NOTE | 2016-09-14 04:38 | ED ---
General Adult HPI - General Chief complaint: Back Pain/Injury Stated complaint: Back Pain, Cough, Vomiting Time Seen by Provider: 09/14/16 04:25 Source: patient, RN notes reviewed Mode of arrival: ambulatory Limitations: no limitations - History of Present Illness Initial comments: Is a 50-year-old female who comes into the emergency department stating that she 's been cut off her morphine and states she's been buying off the street. Patient states she is a heroin addict in the past. Patient states her doctor cut her off the morphine because she was by morphine off the street. Patient states she wants a shot of narcotics or she can call the patient advocate and I told her was not given a shot of narcotics and she stated that she may as well as leads and picked up and started to walk out. At this point in time interview and it. - Related Data Home Medications Medication Instructions Recorded Confirmed No Known Home Medications [No 09/14/16 09/14/16 Known Home Medications] Allergies Allergy/AdvReac Type Severity Reaction Status Date / Time haloperidol [From Haldol] Allergy Unknown Verified 09/14/16 04:28 haloperidol lactate Allergy Unknown Verified 09/14/16 04:28 [From Haldol] ketorolac [From Toradol] Allergy Anaphylaxis Verified 09/14/16 04:28 latex Allergy Unknown Verified 09/14/16 04:28 aripiprazole [From Abilify] AdvReac Unknown Verified 09/14/16 04:28 gabapentin [From Neurontin] AdvReac Unknown Verified 09/14/16 04:28 risperidone [From Risperdal] AdvReac Unknown Verified 09/14/16 04:28 tramadol HCl [From Ultram] AdvReac Unknown Verified 09/14/16 04:28 ziprasidone HCl [From Geodon] AdvReac Unknown Verified 09/14/16 04:28 ziprasidone mesylate AdvReac Unknown Verified 09/14/16 04:28 [From Geodon] Review of Systems ROS Statement: Those systems with pertinent positive or pertinent negative responses have been documented in the HPI. ROS Other: All systems not noted in ROS Statement are negative. Past Medical History Past Medical History: Fibromyalgia, Hypertension, Liver Disease, Osteoarthritis (OA), Seizure Disorder Additional Past Medical History / Comment(s): Other HX: hep c, chronic pain issues= chronic headaches chronic back pain, bronchitis, arthirits in back and bilateral hips, pancreatic cyst History of Any Multi-Drug Resistant Organisms: None Reported Past Surgical History: Appendectomy, Back Surgery, Hysterectomy, Tubal Ligation Additional Past Surgical History / Comment(s): brain surgery for aneurysm has titanium clip in place., back surgery L4-L5, oral surgery. Past Anesthesia/Blood Transfusion Reactions: No Reported Reaction, Motion Sickness Additional Past Anesthesia/Blood Transfusion Reaction / Comment(s): Pt states she has never recieved blood. vertigo, clauterphobia Past Psychological History: Anxiety, Depression, Panic Disorder, PTSD Smoking Status: Current every day smoker Past Alcohol Use History: None Reported Past Drug Use History: None Reported - Past Family History Father Family Medical History: Cancer Additional Family Medical History / Comment(s): Father of throat cancer at 78 yrs of age. Mother Additional Family Medical History / Comment(s): Mother of a brain aneurysm at age 44. General Exam - General Exam Comments Initial Comments: patient refused any physical examination I walked out. Limitations: no limitations Course Vital Signs 09/14/16 04:23 Temperature 97.8 F Pulse Rate 102 H Respiratory 20 Rate Blood Pressure 126/100 O2 Sat by Pulse 97 Oximetry Disposition Clinical Impression: Chronic back pain, Drug-seeking behavior Disposition: Left Against Medical Advice Referrals: None,Stated [Primary Care Provider] - 1-2 days Time of Disposition: 04:37
== END 2016-09-14 04:41 | disposition left against medical advice (07) ==
LOC: EC 04:21
DX: M54.9 Dorsalgia, unspecified (principal); G89.29 Other chronic pain; Z76.5 Malingerer [conscious simulation]; Z53.29 Procedure and treatment not carried out because of patient's decision for other reasons; F17.200 Nicotine dependence, unspecified, uncomplicated; Z88.8 Allergy status to other drugs, medicaments and biological substances; Z88.6 Allergy status to analgesic agent; Z88.5 Allergy status to narcotic agent; Z91.040 Latex allergy status
CPT/HCPCS: 99283

== ENCOUNTER 2017-01-05 08:36 | Emergency (ER) | payer MEDICARE, OTHER ==
[2017-01-05 08:41] VITALS: BP 137/91; PULSE 84; RESP 18; TEMP 97.7
--- NOTE | 2017-01-05 08:59 | ED ---
General Adult HPI - General Chief complaint: Extremity Injury, Upper Stated complaint: LUMP ON LEFT SHOULDER Time Seen by Provider: 01/05/17 08:47 Source: patient, RN notes reviewed Mode of arrival: ambulatory Limitations: no limitations - History of Present Illness Initial comments: Patient is a 51-year-old female who presents emergency room today with a chief complaint of pain to the left shoulder area. She states that it's worse with movements. She states she feels like there is a bump on the anterior aspect. She feels like it is swollen. Patient denies any injury or trauma. She denies any other complaints or symptoms.Patient denies any recent fever, chills, shortness of breath, chest pain, back pain, abdominal pain, nausea or vomiting, numbness or tingling, dysuria or hematuria, constipation or diarrhea, headaches or visual changes, or any other complaints. - Related Data Home Medications Medication Instructions Recorded Confirmed Cyclobenzaprine [Flexeril] 10 mg PO DAILY 01/05/17 01/05/17 Morphine Sulfate ER [Ms Contin 30 mg PO Q12HR 01/05/17 01/05/17 30Mg] clonazePAM [KlonoPIN] 1 mg PO BID 01/05/17 01/05/17 Allergies Allergy/AdvReac Type Severity Reaction Status Date / Time haloperidol [From Haldol] Allergy Unknown Verified 01/05/17 08:48 haloperidol lactate Allergy Unknown Verified 01/05/17 08:48 [From Haldol] ketorolac [From Toradol] Allergy Anaphylaxis Verified 01/05/17 08:48 latex Allergy Unknown Verified 01/05/17 08:48 aripiprazole [From Abilify] AdvReac Unknown Verified 01/05/17 08:48 gabapentin [From Neurontin] AdvReac Unknown Verified 01/05/17 08:48 risperidone [From Risperdal] AdvReac Unknown Verified 01/05/17 08:48 tramadol HCl [From Ultram] AdvReac Unknown Verified 01/05/17 08:48 ziprasidone HCl [From Geodon] AdvReac Unknown Verified 01/05/17 08:48 ziprasidone mesylate AdvReac Unknown Verified 01/05/17 08:48 [From Geodon] Review of Systems ROS Statement: Those systems with pertinent positive or pertinent negative responses have been documented in the HPI. ROS Other: All systems not noted in ROS Statement are negative. Past Medical History Past Medical History: Fibromyalgia, Hypertension, Liver Disease, Osteoarthritis (OA), Seizure Disorder Additional Past Medical History / Comment(s): Other HX: hep c, chronic pain issues= chronic headaches chronic back pain, bronchitis, arthirits in back and bilateral hips, pancreatic cyst History of Any Multi-Drug Resistant Organisms: None Reported Past Surgical History: Appendectomy, Back Surgery, Hysterectomy, Tubal Ligation Additional Past Surgical History / Comment(s): brain surgery for aneurysm has titanium clip in place., back surgery L4-L5, oral surgery. Past Anesthesia/Blood Transfusion Reactions: No Reported Reaction, Motion Sickness Additional Past Anesthesia/Blood Transfusion Reaction / Comment(s): Pt states she has never recieved blood. vertigo, clauterphobia Past Psychological History: Anxiety, Depression, Panic Disorder, PTSD Smoking Status: Current every day smoker Past Alcohol Use History: None Reported Past Drug Use History: Marijuana - Past Family History Father Family Medical History: Cancer Additional Family Medical History / Comment(s): Father of throat cancer at 78 yrs of age. Mother Additional Family Medical History / Comment(s): Mother of a brain aneurysm at age 44. General Exam - General Exam Comments Initial Comments: General: The patient is awake and alert, in no distress, and does not appear acutely ill. Eye: Pupils are equal, round and reactive to light, extra-ocular movements are intact. No nystagmus. There is normal conjunctiva bilaterally. No signs of icterus. Ears, nose, mouth and throat: There are moist mucous membranes and no oral lesions. Neck: The neck is supple, there is no tenderness or JVD. Cardiovascular: There is a regular rate and rhythm. No murmur, rub or gallop is appreciated. Respiratory: Lungs are clear to auscultation, respirations are non-labored, breath sounds are equal. No wheezes, stridor, rales, or rhonchi. Musculoskeletal: Patient shows full range of motion of the left shoulder, left elbow, left wrist. Full range of motion of cervical spine. No tenderness of the cervical spine. No tenderness to the left elbow, left wrist. Patient does have tenderness over the anterior aspect of left shoulder specifically the biceps groove. Strength 5/5. Sensation intact. Pulses equal bilaterally 2+. Neurological: A&O x 3. CN II-XII intact, There are no obvious motor or sensory deficits. Coordination appears grossly intact. Speech is normal. Skin: Skin is warm and dry and no rashes or lesions are noted. Psychiatric: Cooperative, appropriate mood & affect, normal judgment. Limitations: no limitations Course Vital Signs 01/05/17 08:38 Temperature 97.7 F Pulse Rate 84 Respiratory 18 Rate Blood Pressure 137/91 O2 Sat by Pulse 98 Oximetry Medical Decision Making - Medical Decision Making Options were discussed with patient about imaging here in emergency room. Advised that x-rays won't shows the bones not any tendons ligaments or the labrum. She does have full range of motion. She has declined any imaging. She states she does have an approximate home that she will take for the pain. Was discussed about possibility of a tendinitis also discussed the possibility of infection. Advised to return if there is increased redness, swelling, pain. Disposition Clinical Impression: Shoulder pain Disposition: HOME SELF-CARE Condition: Good Instructions: Shoulder Pain (ED) Additional Instructions: Please use anti-inflammatories as discussed. Please use ice to the affected area. Please follow-up the family doctor or return here to the emergency room symptoms increase or worsen or for any other concerns. Referrals: Zack Braxton DO [Primary Care Provider] - 1-2 days Time of Disposition: 08:58
== END 2017-01-05 09:02 | disposition home or self-care (01) ==
LOC: EC 08:36
DX: M25.512 Pain in left shoulder (principal); M79.7 Fibromyalgia; M19.90 Unspecified osteoarthritis, unspecified site; G40.909 Epilepsy, unspecified, not intractable, without status epilepticus; F17.200 Nicotine dependence, unspecified, uncomplicated; Z79.891 Long term (current) use of opiate analgesic; Z79.899 Other long term (current) drug therapy; Z88.8 Allergy status to other drugs, medicaments and biological substances; Z88.6 Allergy status to analgesic agent; Z91.040 Latex allergy status
CPT/HCPCS: 99283

== ENCOUNTER 2017-08-29 22:09 | Emergency (ER) | payer OTHER ==
[2017-08-29 22:16] VITALS: BP 197/105; PULSE 108; RESP 36; TEMP 98.4
[2017-08-29] MEDS ORDERED: SODIUM CHLORIDE 0.9% 1,000 ML IV ONE (22:30)
[2017-08-29] MEDS ORDERED: methylPREDNISolone SOD SUCCI 125 MG/2 ML VIAL IV STA (22:30)
[2017-08-29] MEDS ORDERED: IPRATROPIUM-ALBUTEROL 3 ML NEB INHALATION STA (22:30)
--- NOTE | 2017-08-30 00:03 | ED ---
General Adult HPI - General Chief complaint: Upper Respiratory Infection Stated complaint: SOB Time Seen by Provider: 08/29/17 22:23 Source: patient Mode of arrival: ambulatory Limitations: no limitations - History of Present Illness Initial comments: 51-year-old female patient presents to the emergency department today for evaluation of chest pain and shortness of breath. Patient states that the pain in her chest increases when she takes a deep breath or coughs. Patient states she has been coughing for the last week. States that she feels like she is unable to get the sputum up. Patient states that she has felt chilled but has not had any fevers. States that she has a sore throat and some nasal congestion with this. Patient states that she feels sick and unwell. Patient denies any recent rash, abdominal pain, nausea, vomiting, diarrhea, constipation , back pain, numbness, tingling, dizziness, weakness, hematuria, dysuria, urinary urgency, urinary frequency, headache, visual changes, or any other complaints. States that she is a smoker and started at age 12. Patient denies any recent travel. States she has been having pain to the left medial leg from her calf to mid thigh. She denies history of DVT. - Related Data Home Medications Medication Instructions Recorded Confirmed Cyclobenzaprine [Flexeril] 10 mg PO DAILY 01/05/17 01/05/17 Morphine Sulfate ER [Ms Contin 30 mg PO Q12HR 01/05/17 01/05/17 30Mg] clonazePAM [KlonoPIN] 1 mg PO BID 01/05/17 01/05/17 Allergies Allergy/AdvReac Type Severity Reaction Status Date / Time haloperidol [From Haldol] Allergy Unknown Verified 08/29/17 22:17 haloperidol lactate Allergy Unknown Verified 08/29/17 22:17 [From Haldol] ketorolac [From Toradol] Allergy Anaphylaxis Verified 08/29/17 22:17 latex Allergy Unknown Verified 08/29/17 22:17 aripiprazole [From Abilify] AdvReac Unknown Verified 08/29/17 22:17 gabapentin [From Neurontin] AdvReac Unknown Verified 08/29/17 22:17 risperidone [From Risperdal] AdvReac Unknown Verified 08/29/17 22:17 tramadol HCl [From Ultram] AdvReac Unknown Verified 08/29/17 22:17 ziprasidone HCl [From Geodon] AdvReac Unknown Verified 08/29/17 22:17 ziprasidone mesylate AdvReac Unknown Verified 08/29/17 22:17 [From Achaogen] Review of Systems ROS Statement: Those systems with pertinent positive or pertinent negative responses have been documented in the HPI. ROS Other: All systems not noted in ROS Statement are negative. Past Medical History Past Medical History: Fibromyalgia, Hypertension, Liver Disease, Osteoarthritis (OA), Seizure Disorder Additional Past Medical History / Comment(s): Other HX: hep c, chronic pain issues= chronic headaches chronic back pain, bronchitis, arthirits in back and bilateral hips, pancreatic cyst History of Any Multi-Drug Resistant Organisms: None Reported Past Surgical History: Appendectomy, Back Surgery, Hysterectomy, Tubal Ligation Additional Past Surgical History / Comment(s): brain surgery for aneurysm has titanium clip in place., back surgery L4-L5, oral surgery. Past Anesthesia/Blood Transfusion Reactions: No Reported Reaction, Motion Sickness Additional Past Anesthesia/Blood Transfusion Reaction / Comment(s): Pt states she has never recieved blood. vertigo, clauterphobia Past Psychological History: Anxiety, Depression, Panic Disorder, PTSD Smoking Status: Current every day smoker Past Alcohol Use History: None Reported Past Drug Use History: Marijuana - Past Family History Father Family Medical History: Cancer Additional Family Medical History / Comment(s): Father of throat cancer at 78 yrs of age. Mother Additional Family Medical History / Comment(s): Mother of a brain aneurysm at age 44. General Exam Limitations: no limitations General appearance: alert, in no apparent distress, anxious, other (This is a well-developed, well-nourished adult female who is quite anxious. Vital signs upon presentation are temperature 98.4F, pulse 108, respirations 36, blood pressure 197/105, pulse ox 98% on room air.) Eye exam: Present: normal appearance, PERRL, EOMI. Absent: scleral icterus, conjunctival injection, periorbital swelling ENT exam: Present: normal exam, normal oropharynx, mucous membranes moist Respiratory exam: Present: normal lung sounds bilaterally, wheezes (Diffuse expiratory wheezing posteriorly), other (Tachypnea). Absent: respiratory distress, rales, rhonchi, stridor Cardiovascular Exam: Present: normal rhythm, tachycardia, normal heart sounds. Absent: systolic murmur, diastolic murmur, rubs, gallop, clicks GI/Abdominal exam: Present: soft, normal bowel sounds. Absent: distended, tenderness, guarding, rebound, rigid Neurological exam: Present: alert, oriented X3, CN II-XII intact Psychiatric exam: Present: normal affect, normal mood Skin exam: Present: warm, dry, intact, normal color. Absent: rash Course Vital Signs 08/29/17 22:13 Temperature 98.4 F Pulse Rate 108 H Respiratory 36 H Rate Blood Pressure 197/105 O2 Sat by Pulse 98 Oximetry Medical Decision Making - Medical Decision Making 51-year-old female patient presented to the emergency department today complaining of chest pain and shortness of breath especially with coughing and deep breathing. Physical examination did reveal diffuse expiratory wheezing in her posterior lung rae. Patient was tachycardic. Rest my concern regarding possible pulmonary embolism as well as exacerbation of COPD and recommended testing. Patient did elope from the department without notifying any nursing staff or completing any testing. Disposition Clinical Impression: Left against medical advice Disposition: Left Against Medical Advice Condition: Undetermined Referrals: Zack Braxton DO [Primary Care Provider] - 1-2 days
== END 2017-08-29 23:01 | disposition left against medical advice (07) ==
LOC: EC 22:09
DX: R07.9 Chest pain, unspecified (principal); R06.02 Shortness of breath; R05 Cough; R06.2 Wheezing; R00.0 Tachycardia, unspecified; M79.7 Fibromyalgia; G40.909 Epilepsy, unspecified, not intractable, without status epilepticus; M19.90 Unspecified osteoarthritis, unspecified site; F41.0 Panic disorder [episodic paroxysmal anxiety]; F17.200 Nicotine dependence, unspecified, uncomplicated; Z79.891 Long term (current) use of opiate analgesic; Z79.899 Other long term (current) drug therapy; Z88.5 Allergy status to narcotic agent; Z88.8 Allergy status to other drugs, medicaments and biological substances; Z91.040 Latex allergy status; Z88.6 Allergy status to analgesic agent
CPT/HCPCS: 99283

== ENCOUNTER 2017-10-13 08:35 | Emergency (ER) | payer MEDICARE, OTHER ==
[2017-10-13 08:48] VITALS: BP 141/94; PULSE 85; RESP 18; TEMP 98.2
== END 2017-10-13 09:15 | disposition home or self-care (01) ==
LOC: EC 08:35
DX: M79.89 Other specified soft tissue disorders (principal); R63.5 Abnormal weight gain
CPT/HCPCS: 99499

== ENCOUNTER 2017-11-08 08:18 | Emergency (ER) | payer MEDICARE, OTHER ==
[2017-11-08 08:22] VITALS: BP 120/79; PULSE 85; RESP 20; TEMP 98
--- NOTE | 2017-11-08 08:33 | ED ---
General Adult HPI - General Chief complaint: Dental/Oral Stated complaint: POSS THRUSH Source: patient Mode of arrival: ambulatory Limitations: no limitations - History of Present Illness Initial comments: Dictation was produced using [employer] dictation software. please excuse any grammatical, word or spelling errors. Chief Complaint: 52-year-old female past medical history of polysubstance abuse and possible CHF presents with concerns of thrush. History of Present Illness: Patient is a 52-year-old female with possible history of CHF, hypertension, polysubstance abuse presents with concerns of thrush. Patient states she gets thrush often. She states that there is dry sandpaperlike feeling to her tongue. Patient has most recently had similar symptoms about one year ago. Typically she comes to the emergency department gets Diflucan pill. She denies any history of diabetes or cancer. She denies any immunosuppressive medications. Patient otherwise feels well. The ROS documented in this emergency department record has been reviewed and confirmed by me. Those systems with pertinent positive or negative responses have been documented in the HPI. All other systems are other negative and/or noncontributory. - Related Data Home Medications Medication Instructions Recorded Confirmed Cyclobenzaprine [Flexeril] 10 mg PO DAILY 01/05/17 01/05/17 Morphine Sulfate ER [Ms Contin 30 mg PO Q12HR 01/05/17 01/05/17 30Mg] clonazePAM [KlonoPIN] 1 mg PO BID 01/05/17 01/05/17 Previous Rx's Medication Instructions Recorded Nystatin 100,000 Unit/ml Susp 5 ml PO QID #200 ml 11/08/17 [Mycostatin Oral Susp] Allergies Allergy/AdvReac Type Severity Reaction Status Date / Time haloperidol [From Haldol] Allergy Unknown Verified 11/08/17 08:22 haloperidol lactate Allergy Unknown Verified 11/08/17 08:22 [From Haldol] ketorolac [From Toradol] Allergy Anaphylaxis Verified 11/08/17 08:22 latex Allergy Unknown Verified 11/08/17 08:22 aripiprazole [From Abilify] AdvReac Unknown Verified 11/08/17 08:22 gabapentin [From Neurontin] AdvReac Unknown Verified 11/08/17 08:22 risperidone [From Risperdal] AdvReac Unknown Verified 11/08/17 08:22 tramadol HCl [From Ultram] AdvReac Unknown Verified 11/08/17 08:22 ziprasidone HCl [From Geodon] AdvReac Unknown Verified 11/08/17 08:22 ziprasidone mesylate AdvReac Unknown Verified 11/08/17 08:22 [From Geodon] Review of Systems ROS Statement: Those systems with pertinent positive or pertinent negative responses have been documented in the HPI. ROS Other: All systems not noted in ROS Statement are negative. Past Medical History Past Medical History: Heart Failure, Fibromyalgia, Hypertension, Liver Disease, Osteoarthritis (OA), Seizure Disorder Additional Past Medical History / Comment(s): Other HX: hep c, chronic pain issues= chronic headaches chronic back pain, bronchitis, arthirits in back and bilateral hips, pancreatic cyst History of Any Multi-Drug Resistant Organisms: None Reported Past Surgical History: Appendectomy, Back Surgery, Hysterectomy, Tubal Ligation Additional Past Surgical History / Comment(s): brain surgery for aneurysm has titanium clip in place., back surgery L4-L5, oral surgery. Past Anesthesia/Blood Transfusion Reactions: No Reported Reaction, Motion Sickness Additional Past Anesthesia/Blood Transfusion Reaction / Comment(s): Pt states she has never recieved blood. vertigo, clauterphobia Past Psychological History: Anxiety, Depression, Panic Disorder, PTSD Smoking Status: Current every day smoker Past Alcohol Use History: Occasional Past Drug Use History: Heroin, Marijuana, Methamphetamine, Opiates - Past Family History Father Family Medical History: Cancer Additional Family Medical History / Comment(s): Father of throat cancer at 78 yrs of age. Mother Additional Family Medical History / Comment(s): Mother of a brain aneurysm at age 44. General Exam - General Exam Comments Initial Comments: PHYSICAL EXAM: General Impression: Alert and oriented x3, not in acute distress HEENT: Normocephalic atraumatic, extra-ocular movements intact, pupils equal and reactive to light bilaterally, mucous membranes moist, tongue is dry, with some white buildup to the lateral aspects of the tongue. Cardiovascular: Heart regular rate and rhythm, S1&S2 audible, no murmurs, rubs or gallops Chest: Lungs clear to auscultation bilaterally, no rhonchi, no wheeze, no rales Abdomen: Bowel sounds present, abdomen soft, non-tender, non-distended, no organomegaly Musculoskeletal: Pulses present and equal in all extremities, no peripheral edema Motor: Power 5/5 bilaterally, no focal deficits noted Neurological: CN II-XII grossly intact, no focal motor or sensory deficits noted Skin: Intact with no visualized rashes Psych: Normal affect and mood Limitations: no limitations Course Vital Signs 11/08/17 08:20 Temperature 98.0 F Pulse Rate 85 Respiratory 20 Rate Blood Pressure 120/79 O2 Sat by Pulse 100 Oximetry Medical Decision Making - Medical Decision Making ED course: 52-year-old female with concerns of thrush. Physical examination not overwhelmingly convincing of thrush. Patient denies any history of diabetes or immunosuppressant medical history. No cancer no HIV. Vital signs upon arrival are within acceptable limits. Rest of physical examination is unremarkable. Blood sugar is checked. Patient given nystatin swish and spit. Patient was to follow up with primary care physician for concerns of vitamin deficiency causing tongue symptoms. Disposition Clinical Impression: Tongue abnormality Disposition: HOME SELF-CARE Instructions: Oral Candidiasis (ED) Prescriptions: Nystatin 100,000 Unit/ml Susp [Mycostatin Oral Susp] 5 ml PO QID #200 ml Is patient prescribed a controlled substance at d/c from ED?: No Referrals: None,Stated [Primary Care Provider] - 1-2 days Time of Disposition: 08:33
[2017-11-08 09:01] LABS: Glucose,Whole Blood 98 mg/dL (75-99)
== END 2017-11-08 08:43 | disposition home or self-care (01) ==
LOC: EC 08:18
DX: Q38.3 Other congenital malformations of tongue (principal); F41.0 Panic disorder [episodic paroxysmal anxiety]; F32.9 Major depressive disorder, single episode, unspecified; F17.200 Nicotine dependence, unspecified, uncomplicated; Z79.899 Other long term (current) drug therapy; Z88.8 Allergy status to other drugs, medicaments and biological substances; Z88.6 Allergy status to analgesic agent; Z88.5 Allergy status to narcotic agent
CPT/HCPCS: 36415; 99283

== ENCOUNTER 2017-12-03 04:34 | Emergency (ER) | payer MEDICARE, OTHER ==
[2017-12-03 04:45] VITALS: TEMP 98.3
[2017-12-03] MEDS ORDERED: LIDOCAINE 1%-EPI 1:100,000 30 ML VIAL SQ STA (04:56)
[2017-12-03] MEDS ORDERED: MORPHINE SULFATE 2 MG/ML SYRINGE IM STA (05:00)
--- NOTE | 2017-12-03 05:20 | ED ---
General Adult HPI - General Chief complaint: Skin/Abscess/Foreign Body Stated complaint: abscess on leg Source: patient Mode of arrival: ambulatory Limitations: no limitations - History of Present Illness Initial comments: Dictation was produced using [employer] dictation software. please excuse any grammatical, word or spelling errors. Chief Complaint: IV drug abuser complaining of left lower extremity abscess. History of Present Illness: Patient is a 52-year-old female with past medical history of IV drug abuse presents with left lower extremity abscess. Patient states she is injected to her lower extremities in the past. Denies any constitutional symptoms. The ROS documented in this emergency department record has been reviewed and confirmed by me. Those systems with pertinent positive or negative responses have been documented in the HPI. All other systems are other negative and/or noncontributory. - Related Data Home Medications Medication Instructions Recorded Confirmed Cyclobenzaprine [Flexeril] 10 mg PO DAILY 01/05/17 01/05/17 Morphine Sulfate ER [Ms Contin 30 mg PO Q12HR 01/05/17 01/05/17 30Mg] clonazePAM [KlonoPIN] 1 mg PO BID 01/05/17 01/05/17 Previous Rx's Medication Instructions Recorded Nystatin 100,000 Unit/ml Susp 5 ml PO QID #200 ml 11/08/17 [Mycostatin Oral Susp] Cephalexin [Keflex] 500 mg PO Q6HR 5 Days #20 cap 12/03/17 Naloxone [Narcan] 2 mg IJ ONCE #1 syringe 12/03/17 Sulfamethox-Tmp 800-160Mg [Bactrim 1 tab PO Q12HR 5 Days #10 tab 12/03/17 DS 800-160 mg] Allergies Allergy/AdvReac Type Severity Reaction Status Date / Time haloperidol [From Haldol] Allergy Unknown Verified 12/03/17 04:44 haloperidol lactate Allergy Unknown Verified 12/03/17 04:44 [From Haldol] ketorolac [From Toradol] Allergy Anaphylaxis Verified 12/03/17 04:44 latex Allergy Unknown Verified 12/03/17 04:44 aripiprazole [From Abilify] AdvReac Unknown Verified 12/03/17 04:44 gabapentin [From Neurontin] AdvReac Unknown Verified 12/03/17 04:44 risperidone [From Risperdal] AdvReac Unknown Verified 12/03/17 04:44 tramadol HCl [From Ultram] AdvReac Unknown Verified 12/03/17 04:44 ziprasidone HCl [From Geodon] AdvReac Unknown Verified 12/03/17 04:44 ziprasidone mesylate AdvReac Unknown Verified 12/03/17 04:44 [From Geodon] Review of Systems ROS Statement: Those systems with pertinent positive or pertinent negative responses have been documented in the HPI. ROS Other: All systems not noted in ROS Statement are negative. Past Medical History Past Medical History: Heart Failure, Fibromyalgia, Hypertension, Liver Disease, Osteoarthritis (OA), Seizure Disorder Additional Past Medical History / Comment(s): Other HX: hep c, chronic pain issues= chronic headaches chronic back pain, bronchitis, arthirits in back and bilateral hips, pancreatic cyst History of Any Multi-Drug Resistant Organisms: None Reported Past Surgical History: Appendectomy, Back Surgery, Hysterectomy, Tubal Ligation Additional Past Surgical History / Comment(s): brain surgery for aneurysm has titanium clip in place., back surgery L4-L5, oral surgery. Past Anesthesia/Blood Transfusion Reactions: No Reported Reaction, Motion Sickness Additional Past Anesthesia/Blood Transfusion Reaction / Comment(s): Pt states she has never recieved blood. vertigo, clauterphobia Past Psychological History: Anxiety, Depression, Panic Disorder, PTSD Smoking Status: Current every day smoker Past Alcohol Use History: Occasional Past Drug Use History: Heroin, Marijuana, Methamphetamine, Opiates - Past Family History Father Family Medical History: Cancer Additional Family Medical History / Comment(s): Father of throat cancer at 78 yrs of age. Mother Additional Family Medical History / Comment(s): Mother of a brain aneurysm at age 44. General Exam - General Exam Comments Initial Comments: PHYSICAL EXAM: General Impression: Alert and oriented x3, not in acute distress HEENT: Normocephalic atraumatic, extra-ocular movements intact, pupils equal and reactive to light bilaterally, mucous membranes moist. Cardiovascular: Heart regular rate and rhythm, S1&S2 audible, no murmurs, rubs or gallops Chest: Lungs clear to auscultation bilaterally, no rhonchi, no wheeze, no rales Abdomen: Bowel sounds present, abdomen soft, non-tender, non-distended, no organomegaly Musculoskeletal: Pulses present and equal in all extremities, no peripheral edema Motor: Power 5/5 bilaterally, no focal deficits noted Neurological: CN II-XII grossly intact, no focal motor or sensory deficits noted Skin: 2 x 2 centimeter fluctuant mass over the left anterior tibia. There is surrounding cellulitis. Psych: Normal affect and mood Limitations: no limitations Course Vital Signs 12/03/17 04:38 Temperature 98.3 F Pulse Rate 97 Respiratory 22 Rate Blood Pressure 182/114 O2 Sat by Pulse 98 Oximetry Procedures - Incision & Drainage Consent Obtained: verbal consent Time Out Performed?: Yes Site: other Anesthetic Used: lidocaine 1%, with epi Sterile Field Used?: Yes Scalpel Used: #11 Needle Aspiration Performed?: Yes Irrigation Performed?: Yes Culture Obtained?: No Patient Tolerated Procedure: well Medical Decision Making - Medical Decision Making ED course: 52-year-old female past medical history of IV drug abuse presents with lower extremity abscess. Wound was I&D using loop drainage technique. Approximately 3 mL of purulent material was retrieved via needle aspiration prior to loop application. Rate procedure well. Vital signs upon arrival are within normal limits. Patient discharged with Keflex and Bactrim. She is willing to undergo drug rehabilitation for opiate withdrawal. Patient given resources. Disposition Clinical Impression: Abscess Disposition: HOME SELF-CARE Instructions: Abscess (ED) Prescriptions: Cephalexin [Keflex] 500 mg PO Q6HR 5 Days #20 cap Naloxone [Narcan] 2 mg IJ ONCE #1 syringe Sulfamethox-Tmp 800-160Mg [Bactrim DS 800-160 mg] 1 tab PO Q12HR 5 Days #10 tab Is patient prescribed a controlled substance at d/c from ED?: No Referrals: None,Stated [Primary Care Provider] - 1-2 days Decision Time: 05:19
[2017-12-03 05:55] VITALS: BP 142/90; PULSE 90; RESP 18
== END 2017-12-03 05:50 | disposition home or self-care (01) ==
LOC: EC 04:34
DX: L02.416 Cutaneous abscess of left lower limb (principal); G40.909 Epilepsy, unspecified, not intractable, without status epilepticus; G89.29 Other chronic pain; F17.200 Nicotine dependence, unspecified, uncomplicated; Z88.5 Allergy status to narcotic agent; Z88.6 Allergy status to analgesic agent; Z88.8 Allergy status to other drugs, medicaments and biological substances; Z91.040 Latex allergy status; Z79.891 Long term (current) use of opiate analgesic; Z79.899 Other long term (current) drug therapy
CPT/HCPCS: 99282; 10060; 96372; J2270

== ENCOUNTER 2017-12-22 06:17 | Emergency (ER) | payer MEDICARE, OTHER ==
[2017-12-22 06:24] VITALS: BP 147/89; PULSE 93; RESP 20; TEMP 98.2
[2017-12-22 07:20] LABS: Basophils % (A) 0 %; Eosinophils # (A) 0.4 k/uL (0-0.7); Eosinophils % (A) 5 %; HCT 47.5 % (34.0-46.0); HGB 15.5 gm/dL (11.4-16.0); Lymphocytes # (A) 1.8 k/uL (1.0-4.8); Lymphocytes % (A) 23 %; MCH 28.3 pg (25.0-35.0); MCHC 32.5 g/dL (31.0-37.0); Mean Platelet Volume 9.1; Monocytes # (A) 0.3 k/uL (0-1.0); Monocytes % (A) 4 %; Neutrophils # (A) 5.2 k/uL (1.3-7.7); Neutrophils % (A) 67 %; Platelet Count 134 k/uL (150-450); RBC 5.46 m/uL (3.80-5.40); WBC 7.8 k/uL (3.8-10.6)
[2017-12-22 07:23] LABS: Appearance,Urine Cloudy (Clear); Bilirubin,Urine Negative (Negative); Blood,Urine Negative (Negative); Color,Urine Yellow; Glucose,Urine (UA) Negative (Negative); Ketones,Urine Negative (Negative); Leukocyte Esterase,Urine Negative (Negative); Mucus,Urine Rare /hpf; Nitrite,Urine Negative (Negative); Protein,Urine Trace (Negative); RBC,Urine 1 /hpf (0-5); Specific Gravity,Urine 1.026 (1.001-1.035); Squamous Epithelial Cell,Urine 5 /hpf (0-4); Urobilinogen,Urine <2.0 mg/dL (<2.0); WBC,Urine <1 /hpf (0-5)
[2017-12-22] MEDS ORDERED: HYDROmorphone 1 MG/ML 1 ML SYRINGE IVP STA (07:29)
[2017-12-22] MEDS ORDERED: ONDANSETRON 4 MG/2 ML VIAL IVP STA (07:29)
[2017-12-22 07:30] LABS: ALT 27 U/L (9-52); AST 30 U/L (14-36); Albumin 4.6 g/dL (3.5-5.0); Alkaline Phosphatase 68 U/L (38-126); Anion Gap 11 mmol/L; Blood Urea Nitrogen 11 mg/dL (7-17); Carbon Dioxide 24 mmol/L (22-30); Chloride 108 mmol/L (98-107); Glucose 121 mg/dL (74-99); Potassium 4.1 mmol/L (3.5-5.1); Sodium 143 mmol/L (137-145); Total Bilirubin 0.6 mg/dL (0.2-1.3); Total Protein 8.3 g/dL (6.3-8.2)
--- NOTE | 2017-12-22 07:33 | ED ---
General Adult HPI - General Chief complaint: Chest Pain Stated complaint: Chest Pain Time Seen by Provider: 12/22/17 07:17 Source: patient, family, RN notes reviewed Mode of arrival: wheelchair Limitations: no limitations - History of Present Illness Initial comments: Patient is a pleasant 52-year-old female presenting to the emergency Department with complaints of right-sided chest discomfort. Onset of symptoms was several days ago. Symptoms have been persistent and somewhat worsening. Discomfort feels sharp lateral to the right breast. Discomfort does increase with movement and cough. Patient has not really been coughing much however. No fevers. No dyspnea. No history of similar symptoms previously. Patient denies any rash. - Related Data Home Medications Medication Instructions Recorded Confirmed Cyclobenzaprine [Flexeril] 10 mg PO DAILY 01/05/17 12/22/17 Morphine Sulfate ER [Ms Contin 30 mg PO Q12HR 01/05/17 12/22/17 30Mg] clonazePAM [KlonoPIN] 1 mg PO BID 01/05/17 12/22/17 Previous Rx's Medication Instructions Recorded Nystatin 100,000 Unit/ml Susp 5 ml PO QID #200 ml 11/08/17 [Mycostatin Oral Susp] Naloxone [Narcan] 2 mg IJ ONCE #1 syringe 12/03/17 Sulfamethox-Tmp 800-160Mg [Bactrim 1 tab PO Q12HR 5 Days #10 tab 12/03/17 DS 800-160 mg] Allergies Allergy/AdvReac Type Severity Reaction Status Date / Time haloperidol [From Haldol] Allergy Unknown Verified 12/22/17 06:24 haloperidol lactate Allergy Unknown Verified 12/22/17 06:24 [From Haldol] ketorolac [From Toradol] Allergy Anaphylaxis Verified 12/22/17 06:24 latex Allergy Unknown Verified 12/22/17 06:24 aripiprazole [From Abilify] AdvReac Unknown Verified 12/22/17 06:24 gabapentin [From Neurontin] AdvReac Unknown Verified 12/22/17 06:24 risperidone [From Risperdal] AdvReac Unknown Verified 12/22/17 06:24 tramadol HCl [From Ultram] AdvReac Unknown Verified 12/22/17 06:24 ziprasidone HCl [From Geodon] AdvReac Unknown Verified 12/22/17 06:24 ziprasidone mesylate AdvReac Unknown Verified 12/22/17 06:24 [From Grant] Review of Systems ROS Statement: Those systems with pertinent positive or pertinent negative responses have been documented in the HPI. ROS Other: All systems not noted in ROS Statement are negative. Constitutional: Denies: fever, chills Eyes: Denies: eye pain ENT: Denies: ear pain Respiratory: Denies: cough Cardiovascular: Reports: chest pain Endocrine: Denies: fatigue Gastrointestinal: Reports: nausea. Denies: abdominal pain Genitourinary: Denies: dysuria Musculoskeletal: Denies: back pain Skin: Denies: rash Neurological: Denies: weakness Past Medical History Past Medical History: Heart Failure, Fibromyalgia, Hypertension, Liver Disease, Osteoarthritis (OA), Seizure Disorder Additional Past Medical History / Comment(s): Other HX: hep c, chronic pain issues= chronic headaches chronic back pain, bronchitis, arthirits in back and bilateral hips, pancreatic cyst History of Any Multi-Drug Resistant Organisms: None Reported Past Surgical History: Appendectomy, Back Surgery, Hysterectomy, Tubal Ligation Additional Past Surgical History / Comment(s): brain surgery for aneurysm has titanium clip in place., back surgery L4-L5, oral surgery. Past Anesthesia/Blood Transfusion Reactions: No Reported Reaction, Motion Sickness Additional Past Anesthesia/Blood Transfusion Reaction / Comment(s): Pt states she has never recieved blood. vertigo, clauterphobia Past Psychological History: Anxiety, Depression, Panic Disorder, PTSD Smoking Status: Current every day smoker Past Alcohol Use History: Occasional Past Drug Use History: Heroin, Marijuana, Methamphetamine, Opiates - Past Family History Father Family Medical History: Cancer Additional Family Medical History / Comment(s): Father of throat cancer at 78 yrs of age. Mother Additional Family Medical History / Comment(s): Mother of a brain aneurysm at age 44. General Exam Limitations: no limitations General appearance: alert, in no apparent distress Head exam: Present: atraumatic Eye exam: Present: normal appearance, PERRL ENT exam: Present: normal oropharynx Neck exam: Present: normal inspection Respiratory exam: Present: normal lung sounds bilaterally, chest wall tenderness (Moderate tenderness right lateral chest lateral to the breast.) Cardiovascular Exam: Present: regular rate, normal rhythm Expanded Peripheral pulses: 2+: Radial (R), Radial (L), Dorsalis Pedis (R), Dorsalis Pedis (L) GI/Abdominal exam: Present: soft. Absent: distended, tenderness, guarding, rebound, rigid Extremities exam: Present: normal inspection. Absent: pedal edema, calf tenderness Neurological exam: Present: alert Psychiatric exam: Present: normal affect, normal mood Skin exam: Present: normal color Course Vital Signs 12/22/17 06:20 Temperature 98.2 F Pulse Rate 93 Respiratory 20 Rate Blood Pressure 147/89 O2 Sat by Pulse 96 Oximetry EKG Findings - EKG Comments: EKG Findings:: Normal sinus rhythm 86. PA 166. QRS 90. QT 380. QTC 464. Normal axis. Normal QRS. No acute ST change. Medical Decision Making - Medical Decision Making Patient has eloped - Lab Data Result diagrams: 12/22/17 06:50 12/22/17 06:50 Lab Results 12/22/17 12/22/17 12/22/17 Range/Units 06:50 06:50 06:50 WBC 7.8 (3.8-10.6) k/uL RBC 5.46 H (3.80-5.40) m/uL Hgb 15.5 (11.4-16.0) gm/dL Hct 47.5 H (34.0-46.0) % MCV 87.0 (80.0-100.0) fL MCH 28.3 (25.0-35.0) pg MCHC 32.5 (31.0-37.0) g/dL RDW 13.0 (11.5-15.5) % Plt Count 134 L (150-450) k/uL Neutrophils % 67 % Lymphocytes % 23 % Monocytes % 4 % Eosinophils % 5 % Basophils % 0 % Neutrophils # 5.2 (1.3-7.7) k/uL Lymphocytes # 1.8 (1.0-4.8) k/uL Monocytes # 0.3 (0-1.0) k/uL Eosinophils # 0.4 (0-0.7) k/uL Basophils # 0.0 (0-0.2) k/uL PT (9.0-12.0) sec INR (<1.2) APTT (22.0-30.0) sec D-Dimer (<0.60) mg/L FEU Sodium 143 (137-145) mmol/L Potassium 4.1 (3.5-5.1) mmol/L Chloride 108 H (98-107) mmol/L Carbon Dioxide 24 (22-30) mmol/L Anion Gap 11 mmol/L BUN 11 (7-17) mg/dL Creatinine 0.64 (0.52-1.04) mg/dL Est GFR (CKD-EPI)AfAm >90 (>60 ml/min/1.73 sqM) Est GFR (CKD-EPI)NonAf >90 (>60 ml/min/1.73 sqM) Glucose 121 H (74-99) mg/dL Calcium 10.0 (8.4-10.2) mg/dL Total Bilirubin 0.6 (0.2-1.3) mg/dL AST 30 (14-36) U/L ALT 27 (9-52) U/L Alkaline Phosphatase 68 (38-126) U/L Total Creatine Kinase 60 (30-135) U/L CK-MB (CK-2) 0.9 (0.0-2.4) ng/mL CK-MB (CK-2) Rel Index 1.5 Troponin I <0.012 (0.000-0.034) ng/mL Total Protein 8.3 H (6.3-8.2) g/dL Albumin 4.6 (3.5-5.0) g/dL Urine Color Urine Appearance (Clear) Urine pH (5.0-8.0) Ur Specific [place] (1.001-1.035) Urine Protein (Negative) Urine Glucose (UA) (Negative) Urine Ketones (Negative) Urine Blood (Negative) Urine Nitrite (Negative) Urine Bilirubin (Negative) Urine Urobilinogen (<2.0) mg/dL Ur Leukocyte Esterase (Negative) Urine RBC (0-5) /hpf Urine WBC (0-5) /hpf Ur Squamous Epith Cells (0-4) /hpf Urine Mucus (None) /hpf 12/22/17 12/22/17 Range/Units 06:50 08:45 WBC (3.8-10.6) k/uL RBC (3.80-5.40) m/uL Hgb (11.4-16.0) gm/dL Hct (34.0-46.0) % MCV (80.0-100.0) fL MCH (25.0-35.0) pg MCHC (31.0-37.0) g/dL RDW (11.5-15.5) % Plt Count (150-450) k/uL Neutrophils % % Lymphocytes % % Monocytes % % Eosinophils % % Basophils % % Neutrophils # (1.3-7.7) k/uL Lymphocytes # (1.0-4.8) k/uL Monocytes # (0-1.0) k/uL Eosinophils # (0-0.7) k/uL Basophils # (0-0.2) k/uL PT 10.0 (9.0-12.0) sec INR 1.0 (<1.2) APTT 24.6 (22.0-30.0) sec D-Dimer 0.30 (<0.60) mg/L FEU Sodium (137-145) mmol/L Potassium (3.5-5.1) mmol/L Chloride (98-107) mmol/L Carbon Dioxide (22-30) mmol/L Anion Gap mmol/L BUN (7-17) mg/dL Creatinine (0.52-1.04) mg/dL Est GFR (CKD-EPI)AfAm (>60 ml/min/1.73 sqM) Est GFR (CKD-EPI)NonAf (>60 ml/min/1.73 sqM) Glucose (74-99) mg/dL Calcium (8.4-10.2) mg/dL Total Bilirubin (0.2-1.3) mg/dL AST (14-36) U/L ALT (9-52) U/L Alkaline Phosphatase (38-126) U/L Total Creatine Kinase (30-135) U/L CK-MB (CK-2) (0.0-2.4) ng/mL CK-MB (CK-2) Rel Index Troponin I (0.000-0.034) ng/mL Total Protein (6.3-8.2) g/dL Albumin (3.5-5.0) g/dL Urine Color Yellow Urine Appearance Cloudy H (Clear) Urine pH 7.0 (5.0-8.0) Ur Specific [place] 1.026 (1.001-1.035) Urine Protein Trace H (Negative) Urine Glucose (UA) Negative (Negative) Urine Ketones Negative (Negative) Urine Blood Negative (Negative) Urine Nitrite Negative (Negative) Urine Bilirubin Negative (Negative) Urine Urobilinogen <2.0 (<2.0) mg/dL Ur Leukocyte Esterase Negative (Negative) Urine RBC 1 (0-5) /hpf Urine WBC <1 (0-5) /hpf Ur Squamous Epith Cells 5 H (0-4) /hpf Urine Mucus Rare H (None) /hpf - Radiology Data Radiology results: image reviewed (Chest x-ray shows no acute process) Disposition Clinical Impression: Chest pain Disposition: Left Against Medical Advice Is patient prescribed a controlled substance at d/c from ED?: No Referrals: None,Stated [Primary Care Provider] - 1-2 days Time of Disposition: 09:21
[2017-12-22 07:34] LABS: Creatine Kinase 60 U/L (30-135)
[2017-12-22 07:47] LABS: Creatine Kinase MB 0.9 ng/mL (0.0-2.4); Troponin I <0.012 ng/mL (0.000-0.034)
--- NOTE | 2017-12-22 08:28 | XR ---
EXAMINATION TYPE: XR chest 2V DATE OF EXAM: 12/22/2017 HISTORY: Chest Pain. REFERENCE: NONE. FINDINGS: Lungs remain clear. Pleural spaces are clear. Heart size is normal. IMPRESSION: NORMAL CHEST.
[2017-12-22 09:19] LABS: D-Dimer 0.3 mg/L FEU (<0.60); Partial Thromboplastin Time 24.6 sec (22.0-30.0)
== END 2017-12-22 09:36 | disposition left against medical advice (07) ==
LOC: EC 06:17
DX: R07.89 Other chest pain (principal); G40.909 Epilepsy, unspecified, not intractable, without status epilepticus; G89.29 Other chronic pain; F41.0 Panic disorder [episodic paroxysmal anxiety]; F17.200 Nicotine dependence, unspecified, uncomplicated; Z88.5 Allergy status to narcotic agent; Z88.6 Allergy status to analgesic agent; Z88.8 Allergy status to other drugs, medicaments and biological substances; Z79.891 Long term (current) use of opiate analgesic; Z79.899 Other long term (current) drug therapy
CPT/HCPCS: 36415; 85379; 80053; 82550; 82553; 84484; 85025; 85610; 85730; 81001; 71046; 99285; 96374; 96375; J2405; J1170

== ENCOUNTER 2018-02-04 04:52 | Emergency (ER) | payer MEDICARE, OTHER ==
[2018-02-04 05:02] VITALS: RESP 18; TEMP 98.3
[2018-02-04] MEDS ORDERED: DIAZEPAM 5 MG TAB PO STA (05:22)
[2018-02-04] MEDS ORDERED: BUTALB/APAP/CAFF 50-325-40MG TAB PO STA (05:27)
--- NOTE | 2018-02-04 05:32 | ED ---
General Adult HPI - General Chief complaint: Headache Stated complaint: headache Time Seen by Provider: 02/04/18 05:04 Source: patient, RN notes reviewed, old records reviewed Mode of arrival: ambulatory Limitations: no limitations - History of Present Illness Initial comments: 52-year-old female presenting for medication refill. Patient states that she has chronic headaches and chronic benzodiazepine dependence. Her primary care physician has recently decreased her quantity of clonazepam and Fioricet. She is currently out of these medications. She states she does have an appointment later today with her primary care physician. Patient denies any new symptoms. She has left-sided headache which is chronic and unchanged in nature. She has remote history of brain aneurysm status post craniotomy. Again these symptoms are chronic and unchanged. No numbness or tingling. No focal weakness. No vomiting. No vision changes. No chest pain or abdominal pain. - Related Data Home Medications Medication Instructions Recorded Confirmed Cyclobenzaprine [Flexeril] 10 mg PO DAILY 01/05/17 12/22/17 Morphine Sulfate ER [Ms Contin 30 mg PO Q12HR 01/05/17 12/22/17 30Mg] clonazePAM [KlonoPIN] 1 mg PO BID 01/05/17 12/22/17 Previous Rx's Medication Instructions Recorded Nystatin 100,000 Unit/ml Susp 5 ml PO QID #200 ml 11/08/17 [Mycostatin Oral Susp] Naloxone [Narcan] 2 mg IJ ONCE #1 syringe 12/03/17 Sulfamethox-Tmp 800-160Mg [Bactrim 1 tab PO Q12HR 5 Days #10 tab 12/03/17 DS 800-160 mg] Allergies Allergy/AdvReac Type Severity Reaction Status Date / Time haloperidol [From Haldol] Allergy Unknown Verified 02/04/18 05:02 haloperidol lactate Allergy Unknown Verified 02/04/18 05:02 [From Haldol] ketorolac [From Toradol] Allergy Anaphylaxis Verified 02/04/18 05:02 latex Allergy Unknown Verified 02/04/18 05:02 aripiprazole [From Abilify] AdvReac Unknown Verified 02/04/18 05:02 gabapentin [From Neurontin] AdvReac Unknown Verified 02/04/18 05:02 risperidone [From Risperdal] AdvReac Unknown Verified 02/04/18 05:02 tramadol HCl [From Ultram] AdvReac Unknown Verified 02/04/18 05:02 ziprasidone HCl [From Geodon] AdvReac Unknown Verified 02/04/18 05:02 ziprasidone mesylate AdvReac Unknown Verified 02/04/18 05:02 [From Geodon] Review of Systems ROS Statement: Those systems with pertinent positive or pertinent negative responses have been documented in the HPI. ROS Other: All systems not noted in ROS Statement are negative. Past Medical History Past Medical History: Heart Failure, Fibromyalgia, Hypertension, Liver Disease, Osteoarthritis (OA), Seizure Disorder Additional Past Medical History / Comment(s): Other HX: hep c, chronic pain issues= chronic headaches chronic back pain, bronchitis, arthirits in back and bilateral hips, pancreatic cyst History of Any Multi-Drug Resistant Organisms: None Reported Past Surgical History: Appendectomy, Back Surgery, Hysterectomy, Tubal Ligation Additional Past Surgical History / Comment(s): brain surgery for aneurysm has titanium clip in place., back surgery L4-L5, oral surgery. Past Anesthesia/Blood Transfusion Reactions: No Reported Reaction, Motion Sickness Additional Past Anesthesia/Blood Transfusion Reaction / Comment(s): Pt states she has never recieved blood. vertigo, clauterphobia Past Psychological History: Anxiety, Depression, Panic Disorder, PTSD Smoking Status: Current every day smoker Past Alcohol Use History: Occasional Past Drug Use History: Heroin, Marijuana, Methamphetamine, Opiates - Past Family History Father Family Medical History: Cancer Additional Family Medical History / Comment(s): Father of throat cancer at 78 yrs of age. Mother Additional Family Medical History / Comment(s): Mother of a brain aneurysm at age 44. General Exam Limitations: no limitations General appearance: alert, in no apparent distress Head exam: Present: atraumatic, normocephalic Eye exam: Present: normal appearance, PERRL, EOMI ENT exam: Present: normal exam Neck exam: Present: normal inspection. Absent: tenderness, meningismus Respiratory exam: Present: normal lung sounds bilaterally. Absent: respiratory distress, wheezes Cardiovascular Exam: Present: regular rate, normal rhythm GI/Abdominal exam: Present: soft. Absent: distended, tenderness Extremities exam: Present: normal inspection, normal capillary refill. Absent: pedal edema Neurological exam: Present: alert, oriented X3, CN II-XII intact, normal gait, motor sensory deficit Psychiatric exam: Present: anxious Skin exam: Present: warm, dry, intact. Absent: cyanosis, diaphoretic Course Vital Signs 02/04/18 04:56 Temperature 98.3 F Pulse Rate 97 Respiratory 18 Rate Blood Pressure 166/98 O2 Sat by Pulse 97 Oximetry Medical Decision Making - Medical Decision Making 52-year-old female presenting for medication refill. She does report headache however this is chronic. I did emphasize that to fully evaluate her headache would like to obtain a CT given her history of brain aneurysm. She completely declines this evaluation. She states that her headache is chronic and unchanged and does not want any further evaluation. While the patient is in the emergency department to give her 1 Valium and 1 Fioricet. She has an appointment later today with her primary care physician. I will not prescribe these medications. Patient states she is not driving and will take a cab home. Disposition Clinical Impression: Benzodiazepine dependence, Chronic headache Disposition: HOME SELF-CARE Condition: Fair Instructions: Chronic Pain (ED) Additional Instructions: Please follow up with the primary care physician later today. Do not drive. Is patient prescribed a controlled substance at d/c from ED?: No Referrals: None,Stated [Primary Care Provider] - 1-2 days Time of Disposition: 05:32
[2018-02-04 05:39] VITALS: BP 151/104; PULSE 86
== END 2018-02-04 06:00 | disposition home or self-care (01) ==
LOC: EC 04:52
DX: F13.20 Sedative, hypnotic or anxiolytic dependence, uncomplicated (principal); R51 Headache; M79.7 Fibromyalgia; G40.909 Epilepsy, unspecified, not intractable, without status epilepticus; M16.0 Bilateral primary osteoarthritis of hip; F17.200 Nicotine dependence, unspecified, uncomplicated; Z86.69 Personal history of other diseases of the nervous system and sense organs; Z98.890 Other specified postprocedural states; Z53.29 Procedure and treatment not carried out because of patient's decision for other reasons; Z79.891 Long term (current) use of opiate analgesic; Z79.899 Other long term (current) drug therapy; Z88.8 Allergy status to other drugs, medicaments and biological substances; Z88.6 Allergy status to analgesic agent; Z91.040 Latex allergy status
CPT/HCPCS: 99284

== ENCOUNTER 2018-02-28 13:05 | Emergency (ER) | payer MEDICARE, OTHER ==
[2018-02-28 13:10] VITALS: BP 142/92; PULSE 82; RESP 16; TEMP 98.1
[2018-02-28] MEDS ORDERED: SODIUM CHLORIDE 0.9% 1,000 ML IV STA (13:43)
[2018-02-28] MEDS ORDERED: diphenhydrAMINE 50 MG/ML 1 ML VIAL IVP STA (14:10)
[2018-02-28] MEDS ORDERED: METOCLOPRAMIDE 5 MG/ML 2 ML VIAL IVP STA (14:10)
[2018-02-28] MEDS ORDERED: MECLIZINE 12.5 MG TAB PO STA (14:12)
[2018-02-28] MEDS ORDERED: METOCLOPRAMIDE 5 MG/ML 2 ML VIAL IM STA (14:13)
[2018-02-28] MEDS ORDERED: diphenhydrAMINE 50 MG CAP PO STA (14:14)
[2018-02-28] MEDS ORDERED: METOCLOPRAMIDE 10 MG TAB PO STA (14:22)
[2018-02-28 14:29] LABS: Basophils % (A) 0 %; Eosinophils # (A) 0.2 k/uL (0-0.7); Eosinophils % (A) 2 %; HCT 48.6 % (34.0-46.0); HGB 16.2 gm/dL (11.4-16.0); Lymphocytes % (A) 27 %; MCHC 33.3 g/dL (31.0-37.0); Mean Platelet Volume 8.5; Monocytes # (A) 0.2 k/uL (0-1.0); Monocytes % (A) 3 %; Neutrophils # (A) 4.9 k/uL (1.3-7.7); Neutrophils % (A) 66 %; Platelet Count 130 k/uL (150-450); RBC 5.59 m/uL (3.80-5.40); RDW 13.3 % (11.5-15.5); WBC 7.4 k/uL (3.8-10.6)
[2018-02-28 14:37] LABS: ALT 34 U/L (9-52); AST 28 U/L (14-36); Albumin 5.2 g/dL (3.5-5.0); Alkaline Phosphatase 74 U/L (38-126); Anion Gap 10 mmol/L; Blood Urea Nitrogen 13 mg/dL (7-17); Calcium 9.8 mg/dL (8.4-10.2); Carbon Dioxide 26 mmol/L (22-30); Chloride 105 mmol/L (98-107); Glucose 106 mg/dL (74-99); Potassium 4.7 mmol/L (3.5-5.1); Sodium 141 mmol/L (137-145); Total Bilirubin 0.7 mg/dL (0.2-1.3); Total Protein 8.7 g/dL (6.3-8.2)
--- NOTE | 2018-02-28 14:52 | CT ---
EXAMINATION TYPE: CT brain wo con DATE OF EXAM: 02/28/2018 COMPARISON: 07/22/2015 HISTORY: Pain Unenhanced CT of the brain was performed. The ventricles, basal cisterns and sulci overlying the cerebral convexities demonstrate mild enlargem ent. There is no evidence for intracranial hemorrhage or sulcal effacement. There is decreased attenuation about the periventricular white matter and deep white matter of both c erebral hemispheres, compatible with chronic small vessel ischemia. Differential diagnosis does inclu de demyelination. No mass effects are seen.No midline shift. Left frontal craniotomy. If symptoms persist consider MRI. IMPRESSION: 1. Age related atrophic and chronic small vessel ischemic change without acute intracranial process s een at this time.
--- NOTE | 2018-02-28 15:03 | ED ---
Dizziness HPI - General Chief Complaint: Dizziness Stated Complaint: vertigo x 3 days Time Seen by Provider: 02/28/18 13:42 Source: patient, RN notes reviewed Mode of arrival: ambulatory Limitations: no limitations - History of Present Illness Initial Comments: 52-year-old female presents emergency department with chief complaint headache and dizziness. Patient states that she has a history of migraines. Patient states that this feels a headache but slightly worse. She has had a history of aneurysm clipping. Patient states that this feels different. Denies any blurred vision but states that she feels dizzy on balance. Patient denies fever or chills. Denies any URI symptoms. Denies chest pain denies shortness of breath - Related Data Home Medications Medication Instructions Recorded Confirmed [id number] 1 tab PO Q4HR PRN 02/28/18 02/28/18 [Excedrin] Allergies Allergy/AdvReac Type Severity Reaction Status Date / Time haloperidol [From Haldol] Allergy Unknown Verified 02/28/18 13:53 haloperidol lactate Allergy Unknown Verified 02/28/18 13:53 [From Haldol] ketorolac [From Toradol] Allergy Anaphylaxis Verified 02/28/18 13:53 latex Allergy Unknown Verified 02/28/18 13:53 aripiprazole [From Abilify] AdvReac Unknown Verified 02/28/18 13:53 gabapentin [From Neurontin] AdvReac Unknown Verified 02/28/18 13:53 risperidone [From Risperdal] AdvReac Unknown Verified 02/28/18 13:53 tramadol HCl [From Ultram] AdvReac Unknown Verified 02/28/18 13:53 ziprasidone HCl [From Geodon] AdvReac Unknown Verified 02/28/18 13:53 ziprasidone mesylate AdvReac Unknown Verified 02/28/18 13:53 [From Geodon] Review of Systems ROS Statement: Those systems with pertinent positive or pertinent negative responses have been documented in the HPI. ROS Other: All systems not noted in ROS Statement are negative. Past Medical History Past Medical History: Heart Failure, Fibromyalgia, Hypertension, Liver Disease, Osteoarthritis (OA), Seizure Disorder Additional Past Medical History / Comment(s): Other HX: hep c, chronic pain issues= chronic headaches chronic back pain, bronchitis, arthirits in back and bilateral hips, pancreatic cyst History of Any Multi-Drug Resistant Organisms: None Reported Past Surgical History: Appendectomy, Back Surgery, Hysterectomy, Tubal Ligation Additional Past Surgical History / Comment(s): brain surgery for aneurysm has titanium clip in place., back surgery L4-L5, oral surgery. Past Anesthesia/Blood Transfusion Reactions: No Reported Reaction, Motion Sickness Additional Past Anesthesia/Blood Transfusion Reaction / Comment(s): Pt states she has never recieved blood. vertigo, clauterphobia Past Psychological History: Anxiety, Depression, Panic Disorder, PTSD Smoking Status: Current every day smoker Past Alcohol Use History: Occasional Past Drug Use History: Heroin, Marijuana, Methamphetamine, Opiates - Past Family History Father Family Medical History: Cancer Additional Family Medical History / Comment(s): Father of throat cancer at 78 yrs of age. Mother Additional Family Medical History / Comment(s): Mother of a brain aneurysm at age 44. General Exam Limitations: no limitations General appearance: alert, in no apparent distress Head exam: Present: atraumatic, normocephalic, normal inspection Eye exam: Present: normal appearance, PERRL, EOMI. Absent: scleral icterus, conjunctival injection, periorbital swelling ENT exam: Present: normal exam, normal oropharynx, mucous membranes moist, TM's normal bilaterally Neck exam: Present: normal inspection, full ROM. Absent: tenderness, meningismus, lymphadenopathy Respiratory exam: Present: normal lung sounds bilaterally. Absent: respiratory distress, wheezes, rales, rhonchi, stridor Cardiovascular Exam: Present: regular rate, normal rhythm, normal heart sounds. Absent: systolic murmur, diastolic murmur, rubs, gallop, clicks GI/Abdominal exam: Present: soft, normal bowel sounds. Absent: distended, tenderness, guarding, rebound, rigid Neurological exam: Present: alert, oriented X3, CN II-XII intact, reflexes normal. Absent: motor sensory deficit Course Vital Signs 02/28/18 13:07 Temperature 98.1 F Pulse Rate 82 Respiratory 16 Rate Blood Pressure 142/92 O2 Sat by Pulse 97 Oximetry Medical Decision Making - Medical Decision Making 52-year-old female presented for headache and dizziness. CT was obtained secondary to her history of aneurysm. CT unremarkable. Patient had lab work, urinalysis ordered. Lab work did result. Patient provided urine sample was only contained water. I did question patient why she gave us water. She became upset, yelling profanities at me. I did request another urine patient refused and eloped. - Lab Data Result diagrams: 02/28/18 14:10 02/28/18 14:10 Lab Results 02/28/18 02/28/18 Range/Units 14:10 14:10 WBC 7.4 (3.8-10.6) k/uL RBC 5.59 H (3.80-5.40) m/uL Hgb 16.2 H (11.4-16.0) gm/dL Hct 48.6 H (34.0-46.0) % MCV 87.0 (80.0-100.0) fL MCH 29.0 (25.0-35.0) pg MCHC 33.3 (31.0-37.0) g/dL RDW 13.3 (11.5-15.5) % Plt Count 130 L (150-450) k/uL Neutrophils % 66 % Lymphocytes % 27 % Monocytes % 3 % Eosinophils % 2 % Basophils % 0 % Neutrophils # 4.9 (1.3-7.7) k/uL Lymphocytes # 2.0 (1.0-4.8) k/uL Monocytes # 0.2 (0-1.0) k/uL Eosinophils # 0.2 (0-0.7) k/uL Basophils # 0.0 (0-0.2) k/uL Sodium 141 (137-145) mmol/L Potassium 4.7 (3.5-5.1) mmol/L Chloride 105 (98-107) mmol/L Carbon Dioxide 26 (22-30) mmol/L Anion Gap 10 mmol/L BUN 13 (7-17) mg/dL Creatinine 0.62 (0.52-1.04) mg/dL Est GFR (CKD-EPI)AfAm >90 (>60 ml/min/1.73 sqM) Est GFR (CKD-EPI)NonAf >90 (>60 ml/min/1.73 sqM) Glucose 106 H (74-99) mg/dL Calcium 9.8 (8.4-10.2) mg/dL Total Bilirubin 0.7 (0.2-1.3) mg/dL AST 28 (14-36) U/L ALT 34 (9-52) U/L Alkaline Phosphatase 74 (38-126) U/L Total Protein 8.7 H (6.3-8.2) g/dL Albumin 5.2 H (3.5-5.0) g/dL Disposition Clinical Impression: Chronic headache, Dizziness Disposition: Left Against Medical Advice Referrals: None,Stated [Primary Care Provider] - 1-2 days
== END 2018-02-28 15:27 | disposition left against medical advice (07) ==
LOC: EC 13:05
DX: R42 Dizziness and giddiness (principal); G89.29 Other chronic pain; R51 Headache; Z53.29 Procedure and treatment not carried out because of patient's decision for other reasons; I11.0 Hypertensive heart disease with heart failure; I50.9 Heart failure, unspecified; M79.7 Fibromyalgia; G40.909 Epilepsy, unspecified, not intractable, without status epilepticus; F32.9 Major depressive disorder, single episode, unspecified; F17.200 Nicotine dependence, unspecified, uncomplicated; Z88.8 Allergy status to other drugs, medicaments and biological substances; Z88.6 Allergy status to analgesic agent; Z91.040 Latex allergy status
CPT/HCPCS: 36415; 70450; 80053; 84484; 85025; 99284

== ENCOUNTER 2018-05-21 22:24 | Emergency (ER) | payer MEDICARE, OTHER ==
[2018-05-21 22:29] VITALS: TEMP 98.6
[2018-05-21] MEDS ORDERED: LIDOCAINE 1% INJ 10MG/ML (20 ML MDV) SQ ONE (22:59)
[2018-05-21 23:01] VITALS: RESP 16
--- NOTE | 2018-05-21 23:22 | XR ---
EXAM: XR Right Humerus, 2 or More Views CLINICAL HISTORY: ITS.REASON XR Reason: Pain TECHNIQUE: Frontal and lateral views of the right humerus. COMPARISON: No relevant prior studies available. FINDINGS: Bones/joints: Unremarkable. No acute fracture. No dislocation. Soft tissues: Unremarkable. IMPRESSION: Normal right humerus x-rays.
--- NOTE | 2018-05-21 23:23 | XR ---
EXAM: XR Chest, 2 Views CLINICAL HISTORY: ITS.REASON XR Reason: pain TECHNIQUE: Frontal and lateral views of the chest. COMPARISON: No relevant prior studies available. FINDINGS: Lungs: Unremarkable. No consolidation. Pleural space: Unremarkable. No pneumothorax. Heart: Unremarkable. No cardiomegaly. Mediastinum: Unremarkable. Bones/joints: No acute fracture. IMPRESSION: No acute findings.
[2018-05-21] MEDS ORDERED: SULFAMETH-TMP DS STARTER PACK 2 TAB BTL PO STA (23:39)
[2018-05-21] MEDS ORDERED: CEPHALEXIN 500MG STARTER PACK 4 CAP BTL PO STA (23:39)
--- NOTE | 2018-05-21 23:39 | ED ---
General Adult HPI - General Source: patient, RN notes reviewed Mode of arrival: ambulatory Limitations: no limitations <Chago Mas P - Last Filed: 05/21/18 23:50> <Suzanna Chicas P - Last Filed: 05/22/18 00:16> - General Chief complaint: Skin/Abscess/Foreign Body Stated complaint: Abscess Time Seen by Provider: 05/21/18 22:31 - History of Present Illness Initial comments: 52-year-old female presents to the emergency department for a chief complaint of abscess on the right arm. Patient states she was doing cocaine intravenously and missed her vein. She states that since then she has had a worsening abscess on the right arm. Denies fevers or chills. Denies spreading or streaking redness. Patient states she does not do tetanus shots and does not want one at this time. Patient has no other complaints at this time including shortness of breath, chest pain, abdominal pain, nausea or vomiting, headache, or visual changes. (Chago Mas) - Related Data Previous Rx's Medication Instructions Recorded Cephalexin [Keflex] 500 mg PO Q6H 10 Days cap 05/21/18 Sulfamethox-Tmp 800-160Mg [Bactrim 1 tab PO Q12HR #20 tab 05/21/18 DS 800-160 mg] Allergies Allergy/AdvReac Type Severity Reaction Status Date / Time haloperidol [From Haldol] Allergy Unknown Verified 05/21/18 22:57 haloperidol lactate Allergy Unknown Verified 05/21/18 22:57 [From Haldol] ketorolac [From Toradol] Allergy Anaphylaxis Verified 05/21/18 22:57 latex Allergy Unknown Verified 05/21/18 22:57 aripiprazole [From Abilify] AdvReac Unknown Verified 05/21/18 22:57 gabapentin [From Neurontin] AdvReac Unknown Verified 05/21/18 22:57 risperidone [From Risperdal] AdvReac Unknown Verified 05/21/18 22:57 tramadol HCl [From Ultram] AdvReac Unknown Verified 05/21/18 22:57 ziprasidone HCl [From Geodon] AdvReac Unknown Verified 05/21/18 22:57 ziprasidone mesylate AdvReac Unknown Verified 05/21/18 22:57 [From Geodon] Review of Systems ROS Other: All systems not noted in ROS Statement are negative. <Chago Mas P - Last Filed: 05/21/18 23:50> ROS Other: All systems not noted in ROS Statement are negative. <Suzanna Chicas P - Last Filed: 05/22/18 00:16> ROS Statement: Those systems with pertinent positive or pertinent negative responses have been documented in the HPI. Past Medical History Past Medical History: Heart Failure, Fibromyalgia, Hypertension, Liver Disease, Osteoarthritis (OA), Seizure Disorder Additional Past Medical History / Comment(s): Other HX: hep c, chronic pain issues= chronic headaches chronic back pain, bronchitis, arthirits in back and bilateral hips, pancreatic cyst, History of Any Multi-Drug Resistant Organisms: None Reported Past Surgical History: Appendectomy, Back Surgery, Hysterectomy, Tubal Ligation Additional Past Surgical History / Comment(s): brain surgery for aneurysm has titanium clip in place., back surgery L4-L5, oral surgery. Past Anesthesia/Blood Transfusion Reactions: No Reported Reaction, Motion Sickness Additional Past Anesthesia/Blood Transfusion Reaction / Comment(s): Pt states she has never recieved blood. vertigo, clauterphobia Past Psychological History: Anxiety, Depression, Panic Disorder, PTSD Smoking Status: Current every day smoker Past Alcohol Use History: Occasional Past Drug Use History: Heroin, Marijuana, Methamphetamine, Opiates - Past Family History Father Family Medical History: Cancer Additional Family Medical History / Comment(s): Father of throat cancer at 78 yrs of age. Mother Additional Family Medical History / Comment(s): Mother of a brain aneurysm at age 44. <Chago Mas P - Last Filed: 05/21/18 23:50> General Exam Limitations: no limitations General appearance: alert, in no apparent distress Head exam: Present: atraumatic, normocephalic, normal inspection Eye exam: Present: normal appearance, PERRL, EOMI. Absent: scleral icterus, conjunctival injection, periorbital swelling ENT exam: Present: normal exam, mucous membranes moist Neck exam: Present: normal inspection, full ROM. Absent: tenderness, meningismus, lymphadenopathy Respiratory exam: Present: normal lung sounds bilaterally. Absent: respiratory distress, wheezes, rales, rhonchi, stridor Cardiovascular Exam: Present: regular rate (she does), normal rhythm, normal heart sounds. Absent: systolic murmur, diastolic murmur, rubs, gallop, clicks Extremities exam: Present: full ROM (Full range of motion of the right upper extremity), normal capillary refill (Capillary refill less than 2 seconds, radial pulse 2+), other (3 x 3 cm localized abscess without induration or spreading redness. No evidence of a cellulitis. No lymphangitis present.) Neurological exam: Present: alert, oriented X3, CN II-XII intact Psychiatric exam: Present: normal affect, normal mood <Chago Mas P - Last Filed: 05/21/18 23:50> Course Vital Signs 05/21/18 05/21/18 22:26 23:55 Temperature 98.6 F Pulse Rate 114 H 108 H Respiratory 16 16 Rate Blood Pressure 137/87 118/70 O2 Sat by Pulse 98 Oximetry Procedures - Incision & Drainage Consent Obtained: verbal consent Indication: Abscess Site: upper extremity (Right mid bicep) Size (cm): 3 Anesthetic Used: lidocaine 1% Amount (mLs): 1 I&D Cleaning Method: Chloroprep Sterile Field Used?: Yes Scalpel Used: #11 I&D Drainage Obtained: Pus, Blood Patient Tolerated Procedure: well, no complications <Chago Mas P - Last Filed: 05/21/18 23:50> Medical Decision Making <Chago Mas P - Last Filed: 05/21/18 23:50> <Suzanna Chicas P - Last Filed: 05/22/18 00:16> - Medical Decision Making 52-year-old female presents to the emergency department for a chief complaint of abscess on the right upper extremity. This is about 3 cm x 3 cm. It is superficial and localized, minimal tenderness. No induration or spreading redness. No evidence of cellulitis or lymphangitis. Ultrasound was used by myself and Dr. Chicas to visualize abscess and rule out vascular component which showed a superficial localized abscess. X-ray negative for needles as patient states she did use IV cocaine in this area. The area was numbed using lidocaine and incised using scalpel. Drained successfully. Patient put on Bactrim and Keflex. Patient will follow up with primary care in the next 1-2 days. She'll return here she has any worsening symptoms. Patient did complain about cough to x-ray so x-ray was taken which showed no acute process. Patient denies shortness of breath. At this time patient likely has a viral respiratory infection and will follow up with primary care in 1-2 days. Patient was mildly tachycardic throughout her stay however this did improve somewhat from 116-108. Patient has been anxious throughout her stay and jittery. Likely contributing to tachycardia. (Chago Mas) I personally saw and evaluated the patient, I performed a bedside ultrasound which revealed an abscess with no vascular involvement, no foreign bodies identified. I agree with the PAs evaluation and treatment of the patient as documented. (Suzanna Chicas) Disposition Is patient prescribed a controlled substance at d/c from ED?: No Time of Disposition: 23:39 <Chago Mas - Last Filed: 05/21/18 23:50> <Suzanna Chicas - Last Filed: 05/22/18 00:16> Clinical Impression: Abscess Disposition: HOME SELF-CARE Condition: Good Instructions (If sedation given, give patient instructions): Abscess Incision and Drainage (ED), Abscess (ED) Additional Instructions: Please apply warm compresses throughout the day. Please take antibiotics as directed. Monitor for signs of infection such as spreading or streaking redness or fever and return if these occur. Return if you have any other worsening symptoms or additional concerns. Otherwise follow-up with primary care provider in one to 2 days. Prescriptions: Sulfamethox-Tmp 800-160Mg [Bactrim DS 800-160 mg] 1 tab PO Q12HR #20 tab Cephalexin [Keflex] 500 mg PO Q6H 10 Days cap Referrals: Carmen Sorto MD [REFERRING] - 1-2 days
[2018-05-21 23:56] VITALS: BP 118/70; PULSE 108
== END 2018-05-21 23:55 | disposition home or self-care (01) ==
LOC: EC 22:24
DX: L02.413 Cutaneous abscess of right upper limb (principal); R00.0 Tachycardia, unspecified; F17.200 Nicotine dependence, unspecified, uncomplicated; Z90.49 Acquired absence of other specified parts of digestive tract; Z90.710 Acquired absence of both cervix and uterus; Z98.51 Tubal ligation status; Z98.890 Other specified postprocedural states; Z88.5 Allergy status to narcotic agent; Z88.6 Allergy status to analgesic agent; Z88.8 Allergy status to other drugs, medicaments and biological substances
CPT/HCPCS: 73060; 71046; 99283; 10060; J2001

== ENCOUNTER 2018-08-14 11:07 | Emergency (ER) | payer MEDICARE, OTHER ==
[2018-08-14 11:20] VITALS: BP 122/99; PULSE 107; RESP 20; TEMP 98
--- NOTE | 2018-08-14 11:47 | ED ---
General Adult HPI - General Chief complaint: Headache Stated complaint: Headache Time Seen by Provider: 08/14/18 11:21 Source: patient, EMS, RN notes reviewed Mode of arrival: EMS Limitations: no limitations - History of Present Illness Initial comments: 52 year old female presents to the emergency department for a chief complaint of headache. Patient has a history of chronic opioid dependence. Patient states his headache has been ongoing for 3 days. Patient states that she gets headaches like these every day all day. Patient has a remote history of brain aneurysm. On presentation patient states she needs pain meds right away. States to drug test her and that she is only positive for Percocet. Patient states that her doctor has decreased her Fioricet prescription as well as her pain medication prescription recently. States she will not do any imaging and lasts we give her "real pain medication." Patient has no other complaints at thi s time including shortness of breath, chest pain, abdominal pain, nausea or vomiting, or visual changes. - Related Data Previous Rx's Medication Instructions Recorded Cephalexin [Keflex] 500 mg PO Q6H 10 Days cap 05/21/18 Sulfamethox-Tmp 800-160Mg [Bactrim 1 tab PO Q12HR #20 tab 05/21/18 DS 800-160 mg] Allergies Allergy/AdvReac Type Severity Reaction Status Date / Time haloperidol [From Haldol] Allergy Unknown Verified 08/14/18 11:20 haloperidol lactate Allergy Unknown Verified 08/14/18 11:20 [From Haldol] ketorolac [From Toradol] Allergy Anaphylaxis Verified 08/14/18 11:20 latex Allergy Unknown Verified 08/14/18 11:20 aripiprazole [From Abilify] AdvReac Unknown Verified 08/14/18 11:20 gabapentin [From Neurontin] AdvReac Unknown Verified 08/14/18 11:20 risperidone [From Risperdal] AdvReac Unknown Verified 08/14/18 11:20 tramadol HCl [From Ultram] AdvReac Unknown Verified 08/14/18 11:20 ziprasidone HCl [From Geodon] AdvReac Unknown Verified 08/14/18 11:20 ziprasidone mesylate AdvReac Unknown Verified 08/14/18 11:20 [From Geodon] Review of Systems ROS Statement: Those systems with pertinent positive or pertinent negative responses have been documented in the HPI. ROS Other: All systems not noted in ROS Statement are negative. Past Medical History Past Medical History: Heart Failure, Fibromyalgia, Hypertension, Liver Disease, Osteoarthritis (OA), Seizure Disorder Additional Past Medical History / Comment(s): Other HX: hep c, chronic pain issues= chronic headaches chronic back pain, bronchitis, arthirits in back and bilateral hips, pancreatic cyst, History of Any Multi-Drug Resistant Organisms: None Reported Past Surgical History: Appendectomy, Back Surgery, Hysterectomy, Tubal Ligation Additional Past Surgical History / Comment(s): brain surgery for aneurysm has titanium clip in place., back surgery L4-L5, oral surgery. Past Anesthesia/Blood Transfusion Reactions: No Reported Reaction, Motion Sickness Additional Past Anesthesia/Blood Transfusion Reaction / Comment(s): Pt states s he has never recieved blood. vertigo, clauterphobia Past Psychological History: Anxiety, Depression, Panic Disorder, PTSD Smoking Status: Current every day smoker Past Alcohol Use History: Occasional Past Drug Use History: Heroin, Marijuana, Methamphetamine, Opiates - Past Family History Father Family Medical History: Cancer Additional Family Medical History / Comment(s): Father of throat cancer at 78 yrs of age. Mother Additional Family Medical History / Comment(s): Mother of a brain aneurysm at age 44. General Exam General appearance: alert, in no apparent distress Head exam: Present: atraumatic, normocephalic, normal inspection Eye exam: Present: normal appearance, PERRL, EOMI. Absent: scleral icterus, conjunctival injection, periorbital swelling ENT exam: Present: normal exam, normal oropharynx, mucous membranes moist, TM's normal bilaterally, normal external ear exam Neck exam: Present: normal inspection, full ROM. Absent: tenderness, meningismus, lymphadenopathy Respiratory exam: Present: normal lung sounds bilaterally. Absent: respiratory distress, wheezes, rales, rhonchi, stridor Cardiovascular Exam: Present: regular rate, normal rhythm, normal heart sounds. Absent: systolic murmur, diastolic murmur, rubs, gallop, clicks Neurological exam: Present: alert, oriented X3, CN II-XII intact, normal gait, other (GCS 15) Expanded Patient oriented to: Present: person, place, time Speech: Present: fluid speech Cranial nerves: EOM's Intact: Normal, Gag Reflex: Normal, Nystagmus: Normal, Facial Sensation: Normal Cerebellar function: Finger to Nose: Normal, Romberg: Normal Upper motor neuron: Pronator Drift: Normal Sensory exam: Upper Extremity Light Touch: Normal, Upper Extremity Pin Prick: Normal, Lower Extremity Light Touch: Normal, Lower Extremity Pin Prick: Normal Motor strength exam: RUE: 5, LUE: 5, RLE: 5, LLE: 5 Eye Response: (4) open spontaneously Motor Response: (6) obeys commands Verbal Response: (5) oriented [place] Total: 15 Psychiatric exam: Present: agitated Course Vital Signs 08/14/18 11:18 Temperature 98.0 F Pulse Rate 107 H Respiratory 20 Rate Blood Pressure 122/99 O2 Sat by Pulse 100 Oximetry Medical Decision Making - Medical Decision Making 52-year-old female presents to the emergency determine for chief complaint of headache. Patient has remote history of aneurysm. Patient has a history of migraines. Patient states she gets these headaches every day. States her doctor will no longer prescribe her Fioricet and is decreasing her pain medication. On presentation patient is agitated already stating she needs "real pain medication" and that I can check her urine to make sure she is only on Percocet. Given patient's history of brain aneurysm I did recommend CT CTA. However patient adamantly refuses this. Stated that I would give patient Reglan Benadryl fluids however as I will not be giving patient narcotics. She became agitated and left the emergency department AMA after being verbally abusive to staff. Disposition Clinical Impression: Headache Disposition: Left Against Medical Advice Is patient prescribed a controlled substance at d/c from ED?: No Referrals: Zack Braxton DO [Primary Care Provider] - 1-2 days Time of Disposition: 11:47
== END 2018-08-14 11:42 | disposition left against medical advice (07) ==
LOC: EC 11:07
DX: R51 Headache (principal); R45.1 Restlessness and agitation; F17.200 Nicotine dependence, unspecified, uncomplicated; Z88.5 Allergy status to narcotic agent; Z88.6 Allergy status to analgesic agent; Z88.8 Allergy status to other drugs, medicaments and biological substances; Z91.040 Latex allergy status; Z86.69 Personal history of other diseases of the nervous system and sense organs; Z98.890 Other specified postprocedural states; Z82.0 Family history of epilepsy and other diseases of the nervous system; Z53.20 Procedure and treatment not carried out because of patient's decision for unspecified reasons
CPT/HCPCS: 99283

== ENCOUNTER 2018-11-16 07:07 | Emergency (ER) | payer MEDICARE, OTHER ==
[2018-11-16 07:13] VITALS: RESP 18
[2018-11-16] MEDS ORDERED: NITROGLYCERIN OINT 1 INCH/GM PACKET TOPICAL STA (07:31)
[2018-11-16] MEDS ORDERED: LORazepam 2 MG/ML INJ IV STA (07:31)
[2018-11-16] MEDS ORDERED: ASPIRIN 81 MG PO STA (07:31)
--- NOTE | 2018-11-16 07:36 | ED ---
General Adult HPI - General Chief complaint: Chest Pain Stated complaint: Chest Pain Time Seen by Provider: 11/16/18 07:10 Source: patient, RN notes reviewed Mode of arrival: ambulatory Limitations: no limitations - History of Present Illness Initial comments: This is a 53-year-old female with past history of congestive heart failure does not know about high blood pressure high cholesterol she states. Patient states she also has had a history of repaired aneurysm in her brain. Patient also states she is a smoker daily. Patient comes in today because she's been having tingling in her left arm for 48 hours and at 3 AM this morning she woke up with a bad headache as well as significant chest pain she states it did not radiate anywhere but it lasted for hours. Patient states the chest pain is subsided the headache is almost subsided and she only has a little bit of tingling in her left arm. Patient denies any difficulty breathing shortness of breath per patient denies any recent fever chills or cough per patient denies any diaphoretic episodes. Patient denies any nausea vomiting diarrhea. Patient denies any abdominal pain. Patient denies any calf pain or leg swelling. - Related Data Home Medications Medication Instructions Recorded Confirmed Albuterol Inhaler [Ventolin Hfa 2 puff INHALATION RT-Q4H PRN 08/14/18 08/14/18 Inhaler] Butalb/APAP/Caff 50-325-40Mg 1 tab PO Q6H 08/14/18 08/14/18 [Fioricet 50-325-40] Celecoxib [CeleBREX] 200 mg PO DAILY 08/14/18 08/14/18 Cetirizine HCl [Zyrtec] 10 mg PO DAILY 08/14/18 08/14/18 Chlorzoxazone 250 mg PO Q8H 08/14/18 08/14/18 Dexlansoprazole [Dexilant] 30 mg PO DAILY 08/14/18 08/14/18 Linaclotide [Linzess] 145 mg PO DAILY 08/14/18 08/14/18 clonazePAM [KlonoPIN] 0.5 mg PO BID PRN 08/14/18 08/14/18 oxyCODONE-APAP 10-325MG [Percocet 1 tab PO Q6H 08/14/18 08/14/18 10-325 mg] Allergies Allergy/AdvReac Type Severity Reaction Status Date / Time haloperidol [From Haldol] Allergy Unknown Verified 11/16/18 07:13 haloperidol lactate Allergy Unknown Verified 11/16/18 07:13 [From Haldol] ketorolac [From Toradol] Allergy Anaphylaxis Verified 11/16/18 07:13 latex Allergy Unknown Verified 11/16/18 07:13 aripiprazole [From Abilify] AdvReac Unknown Verified 11/16/18 07:13 gabapentin [From Neurontin] AdvReac Unknown Verified 11/16/18 07:13 risperidone [From Risperdal] AdvReac Unknown Verified 11/16/18 07:13 tramadol HCl [From Ultram] AdvReac Unknown Verified 11/16/18 07:13 ziprasidone HCl [From Geodon] AdvReac Unknown Verified 11/16/18 07:13 ziprasidone mesylate AdvReac Unknown Verified 11/16/18 07:13 [From Geodon] Review of Systems ROS Statement: Those systems with pertinent positive or pertinent negative responses have been documented in the HPI. ROS Other: All systems not noted in ROS Statement are negative. Past Medical History Past Medical History: Heart Failure, Fibromyalgia, Hypertension, Liver Disease, Osteoarthritis (OA), Seizure Disorder Additional Past Medical History / Comment(s): Other HX: hep c, chronic pain issues= chronic headaches chronic back pain, bronchitis, arthirits in back and bilateral hips, pancreatic cyst, History of Any Multi-Drug Resistant Organisms: None Reported Past Surgical History: Appendectomy, Back Surgery, Hysterectomy, Tubal Ligation Additional Past Surgical History / Comment(s): brain surgery for aneurysm has titanium clip in place., back surgery L4-L5, oral surgery. Past Anesthesia/Blood Transfusion Reactions: No Reported Reaction, Motion Sickness Additional Past Anesthesia/Blood Transfusion Reaction / Comment(s): Pt states she has never recieved blood. vertigo, clauterphobia Past Psychological History: Anxiety, Depression, Panic Disorder, PTSD Smoking Status: Current every day smoker Past Alcohol Use History: Occasional Past Drug Use History: Heroin, Marijuana, Methamphetamine, Opiates - Past Family History Father Family Medical History: Cancer Additional Family Medical History / Comment(s): Father of throat cancer at 78 yrs of age. Mother Additional Family Medical History / Comment(s): Mother of a brain aneurysm at age 44. General Exam - General Exam Comments Initial Comments: GENERAL: Patient is well-developed and well-nourished. Patient is nontoxic and well- hydrated and is in mild distress. ENT: Neck is soft and supple. No significant lymphadenopathy is noted. Oropharynx is clear. Moist mucous membranes. Neck has full range of motion without eliciting any pain. EYES: The sclera were anicteric and conjunctiva were pink and moist. Extraocular movements were intact and pupils were equal round and reactive to light. Eyelids were unremarkable. PULMONARY: Unlabored respirations. Good breath sounds bilaterally. No audible rales rhonchi or wheezing was noted. CARDIOVASCULAR: There is a regular rate and rhythm without any murmurs gallops or rubs. ABDOMEN: Soft and nontender with normal bowel sounds. No palpable organomegaly was noted. There is no palpable pulsatile mass. SKIN: Skin is clear with no lesions or rashes and otherwise unremarkable. NEUROLOGIC: Patient is alert and oriented x3. Cranial nerves II through XII are grossly intact. Motor and sensory are also intact. Normal speech, volume and content. Symmetrical smile. MUSCULOSKELETAL: Normal extremities with adequate strength and full range of motion. No lower extremity swelling or edema. No calf tenderness. LYMPHATICS: No significant lymphadenopathy is noted PSYCHIATRIC: Normal psychiatric evaluation. 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 I spoke with Dr. Herr he agreed to admit the patient admitted the patient I consult cardiology - Lab Data Result diagrams: 11/16/18 08:00 11/16/18 08:00 Lab Results 11/16/18 11/16/18 11/16/18 Range/Units 08:00 08:00 08:00 WBC 6.8 (3.8-10.6) k/uL RBC 5.24 (3.80-5.40) m/uL Hgb 15.1 (11.4-16.0) gm/dL Hct 45.3 (34.0-46.0) % MCV 86.5 (80.0-100.0) fL MCH 28.8 (25.0-35.0) pg MCHC 33.3 (31.0-37.0) g/dL RDW 14.3 (11.5-15.5) % Plt Count 141 L (150-450) k/uL Neutrophils % 61 % Lymphocytes % 24 % Monocytes % 7 % Eosinophils % 5 % Basophils % 2 % Neutrophils # 4.2 (1.3-7.7) k/uL Lymphocytes # 1.6 (1.0-4.8) k/uL Monocytes # 0.5 (0-1.0) k/uL Eosinophils # 0.3 (0-0.7) k/uL Basophils # 0.1 (0-0.2) k/uL PT 10.3 (9.0-12.0) sec INR 1.0 (<1.2) APTT 26.6 (22.0-30.0) sec D-Dimer 0.26 (<0.60) mg/L FEU Sodium 138 (137-145) mmol/L Potassium 4.5 (3.5-5.1) mmol/L Chloride 104 (98-107) mmol/L Carbon Dioxide 22 (22-30) mmol/L Anion Gap 12 mmol/L BUN 14 (7-17) mg/dL Creatinine 0.57 (0.52-1.04) mg/dL Est GFR (CKD-EPI)AfAm >90 (>60 ml/min/1.73 sqM) Est GFR (CKD-EPI)NonAf >90 (>60 ml/min/1.73 sqM) Glucose 110 H (74-99) mg/dL Calcium 9.5 (8.4-10.2) mg/dL Magnesium 2.0 (1.6-2.3) mg/dL Total Bilirubin 0.5 (0.2-1.3) mg/dL AST 33 (14-36) U/L ALT 34 (9-52) U/L Alkaline Phosphatase 77 (38-126) U/L Troponin I (0.000-0.034) ng/mL NT-Pro-B Natriuret Pep pg/mL Total Protein 7.9 (6.3-8.2) g/dL Albumin 4.6 (3.5-5.0) g/dL 11/16/18 11/16/18 Range/Units 08:00 08:00 WBC (3.8-10.6) k/uL RBC (3.80-5.40) m/uL Hgb (11.4-16.0) gm/dL Hct (34.0-46.0) % MCV (80.0-100.0) fL MCH (25.0-35.0) pg MCHC (31.0-37.0) g/dL RDW (11.5-15.5) % Plt Count (150-450) k/uL Neutrophils % % Lymphocytes % % Monocytes % % Eosinophils % % Basophils % % Neutrophils # (1.3-7.7) k/uL Lymphocytes # (1.0-4.8) k/uL Monocytes # (0-1.0) k/uL Eosinophils # (0-0.7) k/uL Basophils # (0-0.2) k/uL PT (9.0-12.0) sec INR (<1.2) APTT (22.0-30.0) sec D-Dimer (<0.60) mg/L FEU Sodium (137-145) mmol/L Potassium (3.5-5.1) mmol/L Chloride (98-107) mmol/L Carbon Dioxide (22-30) mmol/L Anion Gap mmol/L BUN (7-17) mg/dL Creatinine (0.52-1.04) mg/dL Est GFR (CKD-EPI)AfAm (>60 ml/min/1.73 sqM) Est GFR (CKD-EPI)NonAf (>60 ml/min/1.73 sqM) Glucose (74-99) mg/dL Calcium (8.4-10.2) mg/dL Magnesium (1.6-2.3) mg/dL Total Bilirubin (0.2-1.3) mg/dL AST (14-36) U/L ALT (9-52) U/L Alkaline Phosphatase (38-126) U/L Troponin I <0.012 (0.000-0.034) ng/mL NT-Pro-B Natriuret Pep 21 pg/mL Total Protein (6.3-8.2) g/dL Albumin (3.5-5.0) g/dL Disposition Clinical Impression: Chest pain Disposition: ADMITTED IP TO THIS HOSP Referrals: None,Stated [Primary Care Provider] - 1-2 days Time of Disposition: 09:33
[2018-11-16 08:16] LABS: Basophils # (A) 0.1 k/uL (0-0.2); Basophils % (A) 2 %; Eosinophils # (A) 0.3 k/uL (0-0.7); Eosinophils % (A) 5 %; HCT 45.3 % (34.0-46.0); HGB 15.1 gm/dL (11.4-16.0); Lymphocytes # (A) 1.6 k/uL (1.0-4.8); Lymphocytes % (A) 24 %; MCH 28.8 pg (25.0-35.0); MCHC 33.3 g/dL (31.0-37.0); MCV 86.5 fL (80.0-100.0); Mean Platelet Volume 8.2; Monocytes # (A) 0.5 k/uL (0-1.0); Monocytes % (A) 7 %; Neutrophils # (A) 4.2 k/uL (1.3-7.7); Neutrophils % (A) 61 %; Platelet Count 141 k/uL (150-450); RBC 5.24 m/uL (3.80-5.40); RDW 14.3 % (11.5-15.5); WBC 6.8 k/uL (3.8-10.6)
--- NOTE | 2018-11-16 08:24 | CT ---
EXAMINATION TYPE: CT brain wo con DATE OF EXAM: 11/16/2018 COMPARISON: Previous study dated 02/28/2018 HISTORY: Numbness, elevated BP, history of brain aneurysm CT DLP: 1092.4 mGycm Automated exposure control for dose reduction was used. FINDINGS: There are very mild changes of sulcal prominence suggestive of mild atrophy. There is some diffuse pe riventricular white matter lucency, compatible with chronic white matter ischemic change. There is no acute focal lesion, mass effect or midline shift identified. I do not see evidence of intracranial b lood. Visualized portions of the paranasal sinuses and mastoids are clear. There is been a previous left fr ontal craniotomy. The bony calvarium is otherwise intact. IMPRESSION: 1. NO ACUTE INTRACRANIAL ABNORMALITY. 2. POSTSURGICAL CHANGE. 3. MILD DEGENERATIVE CHANGE.
[2018-11-16 08:28] LABS: ALT 34 U/L (9-52); AST 33 U/L (14-36); African American GFR (CKD) >90 (>60 ml/min/1.73 sqM); Albumin 4.6 g/dL (3.5-5.0); Alkaline Phosphatase 77 U/L (38-126); Anion Gap 12 mmol/L; Blood Urea Nitrogen 14 mg/dL (7-17); Calcium 9.5 mg/dL (8.4-10.2); Carbon Dioxide 22 mmol/L (22-30); Chloride 104 mmol/L (98-107); Glucose 110 mg/dL (74-99); Potassium 4.5 mmol/L (3.5-5.1); Sodium 138 mmol/L (137-145); Total Bilirubin 0.5 mg/dL (0.2-1.3); Total Protein 7.9 g/dL (6.3-8.2)
[2018-11-16 08:32] LABS: D-Dimer 0.26 mg/L FEU (<0.60); Partial Thromboplastin Time 26.6 sec (22.0-30.0); Prothrombin Time 10.3 sec (9.0-12.0)
--- NOTE | 2018-11-16 08:44 | XR ---
EXAMINATION TYPE: XR chest 2V DATE OF EXAM ORDERED: 11/16/2018 HISTORY: Chest Pain. REFERENCE: Previous study dated 05/21/2018. FINDINGS: The lungs are clear. Pleural spaces are clear. Heart size is normal. IMPRESSION: NORMAL CHEST.
[2018-11-16 09:08] VITALS: PULSE 90
[2018-11-16] MEDS ORDERED: NITROGLYCERIN SL TABS 0.4 MG TAB SUBLINGUAL PRN (09:34)
[2018-11-16 09:40] VITALS: BP 104/77; TEMP 98.8
[2018-11-16] MEDS ORDERED: NITROGLYCERIN OINT 1 INCH/GM PACKET TOPICAL SCH (12:00)
[2018-11-17] MEDS ORDERED: ASPIRIN 325 MG TAB PO SCH (09:00)
== END 2018-11-16 10:25 | disposition left against medical advice (07) ==
LOC: EC 07:07 → 1SOBS 09:37 → UNDOADMOB 09:37 → 1SOBS 11:24
DX: R07.9 Chest pain, unspecified (principal); R20.2 Paresthesia of skin; R51 Headache; I11.0 Hypertensive heart disease with heart failure; I50.9 Heart failure, unspecified; G40.909 Epilepsy, unspecified, not intractable, without status epilepticus; F41.0 Panic disorder [episodic paroxysmal anxiety]; M19.90 Unspecified osteoarthritis, unspecified site; F17.200 Nicotine dependence, unspecified, uncomplicated; Z79.899 Other long term (current) drug therapy; Z88.8 Allergy status to other drugs, medicaments and biological substances; Z88.6 Allergy status to analgesic agent; Z91.040 Latex allergy status; Z88.5 Allergy status to narcotic agent; Z53.29 Procedure and treatment not carried out because of patient's decision for other reasons
CPT/HCPCS: 36415; 93005; 85379; 83880; 80053; 83735; 84484; 85025; 85610; 85730; 71046; 70450; 99285; 96374; J2060

== ENCOUNTER 2018-12-02 06:49 | Emergency (ER) | payer MEDICARE, OTHER ==
[2018-12-02 06:56] VITALS: TEMP 98
[2018-12-02] MEDS ORDERED: NITROGLYCERIN OINT 1 INCH/GM PACKET TOPICAL STA (07:20)
[2018-12-02] MEDS ORDERED: ASPIRIN 81 MG PO STA (07:20)
[2018-12-02] MEDS ORDERED: SODIUM CHLORIDE 0.9% 500 ML 500 ML IV STA (07:20)
--- NOTE | 2018-12-02 07:33 | ED ---
General Adult HPI - General Chief complaint: Chest Pain Stated complaint: Chest Pain Time Seen by Provider: 12/02/18 07:00 Source: patient, RN notes reviewed Mode of arrival: ambulatory Limitations: no limitations - History of Present Illness Initial comments: This is a 53-year-old female who presents emergency Department with a past history of congestive heart failure. Patient states she is a heroin addict and she smokes heroin every day. Patient states she is already smoked heroin today. Patient comes in today because she's been experiencing intermittent chest pain for 6-8 months and she states in the last 3 weeks she's had chest pain every d ay. Patient denies any difficult to breathing or shortness of breath. Patient states there is some tingling in her left arm. Patient denies any diaphoresis. Patient denies any nausea. Patient denies abdominal pain. Patient denies any vomiting diarrhea. Patient denies any recent fever chills or cough. Patient denies headache patient denies any focal numbness or weakness. Patient denies any lightheadedness dizziness or near syncopal episode. Patient denies any swelling in her legs or calf tenderness. - Related Data Home Medications Medication Instructions Recorded Confirmed [id number] 2 tab PO Q6H PRN 12/02/18 12/02/18 [Excedrin] Allergies Allergy/AdvReac Type Severity Reaction Status Date / Time gabapentin [From Neurontin] Allergy Swelling Verified 12/02/18 07:25 haloperidol [From Haldol] Allergy Unknown Verified 12/02/18 07:25 haloperidol lactate Allergy Unknown Verified 12/02/18 07:25 [From Haldol] ketorolac [From Toradol] Allergy Anaphylaxis Verified 12/02/18 07:25 latex Allergy RED SKIN Verified 12/02/18 07:25 aripiprazole [From Abilify] AdvReac Unknown Verified 12/02/18 07:25 risperidone [From Risperdal] AdvReac Unknown Verified 12/02/18 07:25 tramadol HCl [From Ultram] AdvReac Unknown Verified 12/02/18 07:25 ziprasidone HCl [From Geodon] AdvReac Unknown Verified 12/02/18 07:25 ziprasidone mesylate AdvReac Unknown Verified 12/02/18 07:25 [From Geodon] Review of Systems ROS Statement: Those systems with pertinent positive or pertinent negative responses have been documented in the HPI. ROS Other: All systems not noted in ROS Statement are negative. Past Medical History Past Medical History: Heart Failure, Fibromyalgia, Hypertension, Liver Disease, Osteoarthritis (OA), Seizure Disorder Additional Past Medical History / Comment(s): Other HX: hep c, chronic pain issues= chronic headaches chronic back pain, bronchitis, arthirits in back and bilateral hips, pancreatic cyst, History of Any Multi-Drug Resistant Organisms: None Reported Past Surgical History: Appendectomy, Back Surgery, Hysterectomy, Tubal Ligation Additional Past Surgical History / Comment(s): brain surgery for aneurysm has titanium clip in place., back surgery L4-L5, oral surgery. Past Anesthesia/Blood Transfusion Reactions: No Reported Reaction, Motion Sickness Additional Past Anesthesia/Blood Transfusion Reaction / Comment(s): Pt states she has never recieved blood. vertigo, clauterphobia Past Psychological History: Anxiety, Depression, Panic Disorder, PTSD Smoking Status: Current every day smoker Past Alcohol Use History: Occasional Past Drug Use History: Heroin, Marijuana, Methamphetamine, Opiates - Past Family History Father Family Medical History: Cancer Additional Family Medical History / Comment(s): Father of throat cancer at 78 yrs of age. Mother Additional Family Medical History / Comment(s): Mother of a brain aneurysm at age 44. General Exam - General Exam Comments Initial Comments: GENERAL: Patient is well-developed and well-nourished. Patient is nontoxic and well- hydrated and is in mild distress. ENT: Neck is soft and supple. No significant lymphadenopathy is noted. Oropharynx is clear. Moist mucous membranes. Neck has full range of motion without eliciting any pain. EYES: The sclera were anicteric and conjunctiva were pink and moist. Extraocular movements were intact and pupils were equal round and reactive to light. Eyelids were unremarkable. PULMONARY: Unlabored respirations. Good breath sounds bilaterally. No audible rales rhonchi or wheezing was noted. CARDIOVASCULAR: There is a regular rate and rhythm without any murmurs gallops or rubs. ABDOMEN: Soft and nontender with normal bowel sounds. No palpable organomegaly was noted. There is no palpable pulsatile mass. SKIN: Skin is clear with no lesions or rashes and otherwise unremarkable. NEUROLOGIC: Patient is alert and oriented x3. Cranial nerves II through XII are grossly intact. Motor and sensory are also intact. Normal speech, volume and content. Symmetrical smile. MUSCULOSKELETAL: Normal extremities with adequate strength and full range of motion. No lower extremity swelling or edema. No calf tenderness. LYMPHATICS: No significant lymphadenopathy is noted PSYCHIATRIC: Normal psychiatric evaluation. Limitations: no limitations Course Vital Signs 12/02/18 06:53 Temperature 98.0 F Pulse Rate 90 Respiratory 20 Rate Blood Pressure 132/87 O2 Sat by Pulse 98 Oximetry Medical Decision Making - Medical Decision Making EKG shows normal sinus rhythm at 87 bpm [place] interval 144 QRS is 86 QT interval [address] segment elevation or depression Chest x-ray shows no acute abnormality. I will back in the room to discuss the results with the patient and she didn't want to hear them she wanted to leave. I did tell her that her results were initially negative I recommended that she stay because of the significant chest pain and the duration of her chest pain. Patient stated she did not want to stay and she refused. I indicated there was risks to her for leaving. Patient understood those risks included disability and possibly . - Lab Data Result diagrams: 12/02/18 07:03 12/02/18 07:03 Lab Results 12/02/18 12/02/18 12/02/18 Range/Units 07:03 07:03 07:03 WBC 6.9 (3.8-10.6) k/uL RBC 5.18 (3.80-5.40) m/uL Hgb 15.2 (11.4-16.0) gm/dL Hct 46.4 H (34.0-46.0) % MCV 89.5 (80.0-100.0) fL MCH 29.4 (25.0-35.0) pg MCHC 32.9 (31.0-37.0) g/dL RDW 12.6 (11.5-15.5) % Plt Count 131 L (150-450) k/uL Neutrophils % 54 % Lymphocytes % 32 % Monocytes % 6 % Eosinophils % 5 % Basophils % 1 % Neutrophils # 3.7 (1.3-7.7) k/uL Lymphocytes # 2.2 (1.0-4.8) k/uL Monocytes # 0.4 (0-1.0) k/uL Eosinophils # 0.4 (0-0.7) k/uL Basophils # 0.1 (0-0.2) k/uL PT (9.0-12.0) sec INR (<1.2) APTT (22.0-30.0) sec Sodium 141 (137-145) mmol/L Potassium 3.9 (3.5-5.1) mmol/L Chloride 107 (98-107) mmol/L Carbon Dioxide 21 L (22-30) mmol/L Anion Gap 13 mmol/L BUN 12 (7-17) mg/dL Creatinine 0.74 (0.52-1.04) mg/dL Est GFR (CKD-EPI)AfAm >90 (>60 ml/min/1.73 sqM) Est GFR (CKD-EPI)NonAf >90 (>60 ml/min/1.73 sqM) Glucose 130 H (74-99) mg/dL Calcium 9.0 (8.4-10.2) mg/dL Magnesium 1.9 (1.6-2.3) mg/dL Total Bilirubin 0.5 (0.2-1.3) mg/dL AST 29 (14-36) U/L ALT 34 (9-52) U/L Alkaline Phosphatase 64 (38-126) U/L Troponin I (0.000-0.034) ng/mL NT-Pro-B Natriuret Pep 13 pg/mL Total Protein 7.6 (6.3-8.2) g/dL Albumin 4.3 (3.5-5.0) g/dL 12/02/18 12/02/18 Range/Units 07:03 07:03 WBC (3.8-10.6) k/uL RBC (3.80-5.40) m/uL Hgb (11.4-16.0) gm/dL Hct (34.0-46.0) % MCV (80.0-100.0) fL MCH (25.0-35.0) pg MCHC (31.0-37.0) g/dL RDW (11.5-15.5) % Plt Count (150-450) k/uL Neutrophils % % Lymphocytes % % Monocytes % % Eosinophils % % Basophils % % Neutrophils # (1.3-7.7) k/uL Lymphocytes # (1.0-4.8) k/uL Monocytes # (0-1.0) k/uL Eosinophils # (0-0.7) k/uL Basophils # (0-0.2) k/uL PT 10.1 (9.0-12.0) sec INR 0.9 (<1.2) APTT 26.6 (22.0-30.0) sec Sodium (137-145) mmol/L Potassium (3.5-5.1) mmol/L Chloride (98-107) mmol/L Carbon Dioxide (22-30) mmol/L Anion Gap mmol/L BUN (7-17) mg/dL Creatinine (0.52-1.04) mg/dL Est GFR (CKD-EPI)AfAm (>60 ml/min/1.73 sqM) Est GFR (CKD-EPI)NonAf (>60 ml/min/1.73 sqM) Glucose (74-99) mg/dL Calcium (8.4-10.2) mg/dL Magnesium (1.6-2.3) mg/dL Total Bilirubin (0.2-1.3) mg/dL AST (14-36) U/L ALT (9-52) U/L Alkaline Phosphatase (38-126) U/L Troponin I <0.012 (0.000-0.034) ng/mL NT-Pro-B Natriuret Pep pg/mL Total Protein (6.3-8.2) g/dL Albumin (3.5-5.0) g/dL Disposition Clinical Impression: Chest pain, Heroin abuse Disposition: Left Against Medical Advice Instructions (If sedation given, give patient instructions): Chest Pain (ED) Is patient prescribed a controlled substance at d/c from ED?: No Referrals: None,Stated [Primary Care Provider] - 1-2 days Time of Disposition: 09:45
[2018-12-02 07:46] LABS: INR 0.9 (<1.2); Partial Thromboplastin Time 26.6 sec (22.0-30.0); Prothrombin Time 10.1 sec (9.0-12.0)
--- NOTE | 2018-12-02 07:46 | XR ---
EXAMINATION TYPE: XR chest 2V DATE OF EXAM: 12/02/2018 COMPARISON: 11/16/2018 HISTORY: Chest pain TECHNIQUE: Frontal and lateral views of the chest are obtained. FINDINGS: There is no focal air space opacity, pleural effusion, or pneumothorax seen. Increased re trosternal airspace and lucency of the lung apices relates underlying COPD. The cardiac silhouette si ze is within normal limits. The osseous structures are intact. Minimal changes of spine. IMPRESSION: No acute cardiopulmonary process. Underlying COPD
[2018-12-02 07:51] LABS: Basophils # (A) 0.1 k/uL (0-0.2); Basophils % (A) 1 %; Eosinophils # (A) 0.4 k/uL (0-0.7); Eosinophils % (A) 5 %; HCT 46.4 % (34.0-46.0); HGB 15.2 gm/dL (11.4-16.0); Lymphocytes # (A) 2.2 k/uL (1.0-4.8); Lymphocytes % (A) 32 %; MCH 29.4 pg (25.0-35.0); MCHC 32.9 g/dL (31.0-37.0); MCV 89.5 fL (80.0-100.0); Mean Platelet Volume 7.9; Monocytes # (A) 0.4 k/uL (0-1.0); Monocytes % (A) 6 %; Neutrophils # (A) 3.7 k/uL (1.3-7.7); Neutrophils % (A) 54 %; Platelet Count 131 k/uL (150-450); RBC 5.18 m/uL (3.80-5.40); RDW 12.6 % (11.5-15.5); WBC 6.9 k/uL (3.8-10.6)
[2018-12-02 07:58] LABS: ALT 34 U/L (9-52); AST 29 U/L (14-36); African American GFR (CKD) >90 (>60 ml/min/1.73 sqM); Albumin 4.3 g/dL (3.5-5.0); Alkaline Phosphatase 64 U/L (38-126); Anion Gap 13 mmol/L; Blood Urea Nitrogen 12 mg/dL (7-17); Carbon Dioxide 21 mmol/L (22-30); Chloride 107 mmol/L (98-107); Glucose 130 mg/dL (74-99); Magnesium 1.9 mg/dL (1.6-2.3); Potassium 3.9 mmol/L (3.5-5.1); Sodium 141 mmol/L (137-145); Total Bilirubin 0.5 mg/dL (0.2-1.3); Total Protein 7.6 g/dL (6.3-8.2)
[2018-12-02 10:14] VITALS: BP 104/79; PULSE 77; RESP 16
== END 2018-12-02 10:18 | disposition left against medical advice (07) ==
LOC: EC 06:49
DX: R07.89 Other chest pain (principal); F11.20 Opioid dependence, uncomplicated; F17.200 Nicotine dependence, unspecified, uncomplicated; I11.0 Hypertensive heart disease with heart failure; I50.9 Heart failure, unspecified; Z79.82 Long term (current) use of aspirin; Z88.8 Allergy status to other drugs, medicaments and biological substances; Z91.040 Latex allergy status
CPT/HCPCS: 36415; 71046; 80053; 83735; 83880; 84484; 85025; 85610; 85730; 96360; 96361; 99285

== ENCOUNTER 2018-12-31 01:16 | Emergency (ER) | payer MEDICARE, OTHER ==
[2018-12-31 01:25] VITALS: RESP 20
--- NOTE | 2018-12-31 01:47 | ED ---
SOB HPI - General Chief Complaint: Shortness of Breath Stated Complaint: SOB/Leg Swelling/CHF Time Seen by Provider: 12/31/18 01:29 Source: patient Mode of arrival: ambulatory Limitations: no limitations - History of Present Illness Initial Comments: This patient's 53-year-old woman with history of COPD and CHF who presents with the concern that she believes her CHF is flaring up. The patient states she has been having cough and wheezing for number weeks but feels that over the past couple of days things are worsening. She also was concerned that her lower extremities may be retaining fluid. Patient had been at urgent care and after listening to her lungs they felt she should be seen here. The patient denies fever or chills. She states she does have chronic cough but it seems to be more prominent than usual. No productive sputum. No chest pain. No change in urination or bowel movements. She states she thinks she may be having a little bit of leg swelling. The patient also notes that she had recently stopped using heroin about 6 weeks ago. MD Complaint: shortness of breath, cough -: days(s) Consistency: constant Improves With: nothing Worsens With: nothing Known History Of: COPD, congestive heart failure Treatments Prior to Arrival: none - Related Data Home Medications Medication Instructions Recorded Confirmed [id number] 2 tab PO Q6H PRN 12/02/18 12/02/18 [Excedrin] Previous Rx's Medication Instructions Recorded Albuterol Inhaler [Ventolin Hfa 1 - 2 puff INHALATION Q6HR PRN #1 12/31/18 Inhaler] inhaler predniSONE 20 mg PO BID #8 tab 12/31/18 Allergies Allergy/AdvReac Type Severity Reaction Status Date / Time gabapentin [From Neurontin] Allergy Swelling Verified 12/02/18 07:25 haloperidol [From Haldol] Allergy Unknown Verified 12/31/18 01:25 haloperidol lactate Allergy Unknown Verified 12/31/18 01:25 [From Haldol] ketorolac [From Toradol] Allergy Anaphylaxis Verified 12/31/18 01:25 latex Allergy RED SKIN Verified 12/31/18 01:25 aripiprazole [From Abilify] AdvReac Unknown Verified 12/31/18 01:25 risperidone [From Risperdal] AdvReac Unknown Verified 12/31/18 01:25 tramadol HCl [From Ultram] AdvReac Unknown Verified 12/31/18 01:25 ziprasidone HCl [From Geodon] AdvReac Unknown Verified 12/31/18 01:25 ziprasidone mesylate AdvReac Unknown Verified 12/31/18 01:25 [From Geodon] Review of Systems ROS Statement: Those systems with pertinent positive or pertinent negative responses have been documented in the HPI. ROS Other: All systems not noted in ROS Statement are negative. Constitutional: Denies: fever, chills, weakness Respiratory: Reports: cough, wheezes. Denies: hemoptysis Cardiovascular: Reports: edema. Denies: chest pain, palpitations, orthopnea, syncope Gastrointestinal: Denies: abdominal pain, vomiting, diarrhea Genitourinary: Denies: dysuria, hematuria Musculoskeletal: Denies: back pain Skin: Denies: rash Neurological: Denies: headache, weakness, numbness Past Medical History Past Medical History: Heart Failure, COPD, Fibromyalgia, Hypertension, Liver Disease, Osteoarthritis (OA), Seizure Disorder Additional Past Medical History / Comment(s): Other HX: hep c, chronic pain issues= chronic headaches chronic back pain, bronchitis, arthirits in back and bilateral hips, pancreatic cyst, History of Any Multi-Drug Resistant Organisms: None Reported Past Surgical History: Appendectomy, Back Surgery, Hysterectomy, Tubal Ligation Additional Past Surgical History / Comment(s): brain surgery for aneurysm has titanium clip in place., back surgery L4-L5, oral surgery. Past Anesthesia/Blood Transfusion Reactions: No Reported Reaction, Motion Sickness Additional Past Anesthesia/Blood Transfusion Reaction / Comment(s): Pt states she has never recieved blood. vertigo, clauterphobia Past Psychological History: Anxiety, Depression, Panic Disorder, PTSD Smoking Status: Current every day smoker Past Alcohol Use History: None Reported Past Drug Use History: Heroin, Marijuana, Methamphetamine, Opiates - Past Family History Father Family Medical History: Cancer Additional Family Medical History / Comment(s): Father of throat cancer at 78 yrs of age. Mother Additional Family Medical History / Comment(s): Mother of a brain aneurysm at age 44. General Exam Limitations: no limitations General appearance: alert, in no apparent distress Head exam: Present: atraumatic, normocephalic Eye exam: Present: normal appearance Respiratory exam: Present: wheezes, rhonchi. Absent: respiratory distress, rales, stridor, accessory muscle use, decreased breath sounds, prolonged expiratory Cardiovascular Exam: Present: regular rate, normal rhythm, normal heart sounds. Absent: systolic murmur, diastolic murmur, rubs, gallop GI/Abdominal exam: Present: soft. Absent: distended, tenderness, guarding, rebound, rigid, mass Extremities exam: Present: normal inspection, normal capillary refill. Absent: pedal edema, calf tenderness Back exam: Present: normal inspection. Absent: CVA tenderness (R), CVA tenderness (L) Neurological exam: Present: alert Skin exam: Present: warm, dry, intact, normal color. Absent: rash Course Vital Signs 12/31/18 12/31/18 12/31/18 01:22 02:24 02:33 Temperature 98.4 F Pulse Rate 92 76 76 Respiratory 20 Rate Blood Pressure 138/63 O2 Sat by Pulse 94 L Oximetry 12/31/18 02:43 Temperature Pulse Rate 76 Respiratory Rate Blood Pressure O2 Sat by Pulse Oximetry Medical Decision Making - Lab Data Result diagrams: 12/31/18 03:36 12/31/18 03:36 Lab Results 12/31/18 12/31/18 12/31/18 Range/Units 03:36 03:36 03:36 WBC (3.8-10.6) k/uL RBC (3.80-5.40) m/uL Hgb (11.4-16.0) gm/dL Hct (34.0-46.0) % MCV (80.0-100.0) fL MCH (25.0-35.0) pg MCHC (31.0-37.0) g/dL RDW (11.5-15.5) % Plt Count (150-450) k/uL Neutrophils % % Lymphocytes % % Monocytes % % Eosinophils % % Basophils % % Neutrophils # (1.3-7.7) k/uL Lymphocytes # (1.0-4.8) k/uL Monocytes # (0-1.0) k/uL Eosinophils # (0-0.7) k/uL Basophils # (0-0.2) k/uL Manual Slide Review Large Platelets PT 10.6 (9.0-12.0) sec INR 1.0 (<1.2) APTT 23.5 (22.0-30.0) sec D-Dimer 0.31 (<0.60) mg/L FEU Sodium 142 (137-145) mmol/L Potassium 4.8 (3.5-5.1) mmol/L Chloride 108 H (98-107) mmol/L Carbon Dioxide 25 (22-30) mmol/L Anion Gap 9 mmol/L BUN 13 (7-17) mg/dL Creatinine 0.72 (0.52-1.04) mg/dL Est GFR (CKD-EPI)AfAm >90 (>60 ml/min/1.73 sqM) Est GFR (CKD-EPI)NonAf >90 (>60 ml/min/1.73 sqM) Glucose 93 (74-99) mg/dL Calcium 9.1 (8.4-10.2) mg/dL Total Bilirubin 0.6 (0.2-1.3) mg/dL AST 44 H (14-36) U/L ALT 45 (9-52) U/L Alkaline Phosphatase 53 (38-126) U/L Troponin I <0.012 (0.000-0.034) ng/mL Total Protein 7.5 (6.3-8.2) g/dL Albumin 4.3 (3.5-5.0) g/dL 12/31/18 Range/Units 03:36 WBC 5.9 (3.8-10.6) k/uL RBC 4.93 (3.80-5.40) m/uL Hgb 14.5 (11.4-16.0) gm/dL Hct 43.8 (34.0-46.0) % MCV 88.7 (80.0-100.0) fL MCH 29.5 (25.0-35.0) pg MCHC 33.2 (31.0-37.0) g/dL RDW 12.4 (11.5-15.5) % Plt Count 61 L D (150-450) k/uL Neutrophils % 48 % Lymphocytes % 38 % Monocytes % 6 % Eosinophils % 5 % Basophils % 1 % Neutrophils # 2.9 (1.3-7.7) k/uL Lymphocytes # 2.3 (1.0-4.8) k/uL Monocytes # 0.3 (0-1.0) k/uL Eosinophils # 0.3 (0-0.7) k/uL Basophils # 0.1 (0-0.2) k/uL Manual Slide Review Performed Large Platelets Present PT (9.0-12.0) sec INR (<1.2) APTT (22.0-30.0) sec D-Dimer (<0.60) mg/L FEU Sodium (137-145) mmol/L Potassium (3.5-5.1) mmol/L Chloride (98-107) mmol/L Carbon Dioxide (22-30) mmol/L Anion Gap mmol/L BUN (7-17) mg/dL Creatinine (0.52-1.04) mg/dL Est GFR (CKD-EPI)AfAm (>60 ml/min/1.73 sqM) Est GFR (CKD-EPI)NonAf (>60 ml/min/1.73 sqM) Glucose (74-99) mg/dL Calcium (8.4-10.2) mg/dL Total Bilirubin (0.2-1.3) mg/dL AST (14-36) U/L ALT (9-52) U/L Alkaline Phosphatase (38-126) U/L Troponin I (0.000-0.034) ng/mL Total Protein (6.3-8.2) g/dL Albumin (3.5-5.0) g/dL - EKG Data -: EKG Interpreted by [facility] EKG shows normal: sinus rhythm, axis (Normal), intervals (Normal), QRS complexes (Normal), ST-T waves (Normal) Rate: normal (Rate 82 bpm) Interpretation: normal EKG Disposition Clinical Impression: COPD exacerbation Disposition: HOME SELF-CARE Condition: Good Instructions (If sedation given, give patient instructions): Chronic Bronchitis (ED) Prescriptions: predniSONE 20 mg PO BID #8 tab Albuterol Inhaler [Ventolin Hfa Inhaler] 1 - 2 puff INHALATION Q6HR PRN #1 inhaler PRN Reason: Wheezing Is patient prescribed a controlled substance at d/c from ED?: No Referrals: Zack Braxton DO [Primary Care Provider] - 1-2 days
[2018-12-31] MEDS ORDERED: ALBUTEROL NEBULIZED 2.5 MG/3 ML INHALATION STA ×2 (01:54→05:03)
--- NOTE | 2018-12-31 02:18 | XR ---
EXAMINATION TYPE: XR chest 2V DATE OF EXAM: 12/31/2018 COMPARISON: 12/02/2018 HISTORY: Chest pain. Difficulty breathing TECHNIQUE: Frontal and lateral views of the chest are obtained. FINDINGS: Heart and mediastinum are normal. Lungs are clear. Diaphragm is normal. Bony thorax appear s normal. IMPRESSION: Normal chest. No change.
[2018-12-31 03:50] LABS: Basophils # (A) 0.1 k/uL (0-0.2); Basophils % (A) 1 %; Eosinophils # (A) 0.3 k/uL (0-0.7); Eosinophils % (A) 5 %; HCT 43.8 % (34.0-46.0); HGB 14.5 gm/dL (11.4-16.0); Lymphocytes # (A) 2.3 k/uL (1.0-4.8); Lymphocytes % (A) 38 %; MCH 29.5 pg (25.0-35.0); MCHC 33.2 g/dL (31.0-37.0); MCV 88.7 fL (80.0-100.0); Mean Platelet Volume 8.6; Monocytes # (A) 0.3 k/uL (0-1.0); Monocytes % (A) 6 %; Neutrophils # (A) 2.9 k/uL (1.3-7.7); Neutrophils % (A) 48 %; RBC 4.93 m/uL (3.80-5.40); RDW 12.4 % (11.5-15.5); WBC 5.9 k/uL (3.8-10.6)
[2018-12-31 04:04] LABS: D-Dimer 0.31 mg/L FEU (<0.60); Partial Thromboplastin Time 23.5 sec (22.0-30.0); Prothrombin Time 10.6 sec (9.0-12.0)
[2018-12-31 04:06] LABS: ALT 45 U/L (9-52); AST 44 U/L (14-36); African American GFR (CKD) >90 (>60 ml/min/1.73 sqM); Albumin 4.3 g/dL (3.5-5.0); Alkaline Phosphatase 53 U/L (38-126); Anion Gap 9 mmol/L; Blood Urea Nitrogen 13 mg/dL (7-17); Calcium 9.1 mg/dL (8.4-10.2); Carbon Dioxide 25 mmol/L (22-30); Chloride 108 mmol/L (98-107); Glucose 93 mg/dL (74-99); Potassium 4.8 mmol/L (3.5-5.1); Sodium 142 mmol/L (137-145); Total Bilirubin 0.6 mg/dL (0.2-1.3); Total Protein 7.5 g/dL (6.3-8.2)
[2018-12-31 04:09] LABS: Large Platelets Present
[2018-12-31 04:10] LABS: Platelet Count 61 k/uL (150-450)
[2018-12-31] MEDS ORDERED: predniSONE 20 MG TAB PO STA (04:33)
[2018-12-31 06:06] VITALS: BP 117/77; PULSE 88; TEMP 98
== END 2018-12-31 06:05 | disposition home or self-care (01) ==
LOC: EC 01:16
DX: J44.1 Chronic obstructive pulmonary disease with (acute) exacerbation (principal); I11.0 Hypertensive heart disease with heart failure; I50.9 Heart failure, unspecified; M79.7 Fibromyalgia; F17.200 Nicotine dependence, unspecified, uncomplicated; Z79.82 Long term (current) use of aspirin; Z91.040 Latex allergy status; Z88.6 Allergy status to analgesic agent; Z88.8 Allergy status to other drugs, medicaments and biological substances
CPT/HCPCS: 36415; 94640 ×2; 93005; 85379; 80053; 84484; 85025; 85610; 85730; 71046; 99285; J7512

== ENCOUNTER 2019-01-11 16:39 | Emergency (ER) | payer MEDICARE, OTHER ==
--- NOTE | 2019-01-11 17:06 | ED ---
SOB HPI - General Chief Complaint: Shortness of Breath Stated Complaint: cough, congestion Time Seen by Provider: 01/11/19 17:01 Source: patient, RN notes reviewed, old records reviewed Mode of arrival: ambulatory Limitations: no limitations - History of Present Illness Initial Comments: This is a 53-year-old female the ER for evaluation of cough and congestion. No phlegm. Patient has history of abuse and smoking history of COPD and CHF and multiple other illicit drug use. Patient states he did multiple albuterol treatments yesterday which has helped her breathing she did have a cough she came to ER with who has current fever. Patient originally did not want to get checked out what is the cause progress she decided that she might be seen. Again she has no current symptoms. She does have occasional cough no chest pain or shortness of breath currently. MD Complaint: shortness of breath, cough -: days(s) Radiation: other Severity: mild Severity scale (1-10): 3 Quality: dull Consistency: intermittent, now resolved Improves With: oxygen, rest, bronchodilators Worsens With: nothing Known History Of: COPD, congestive heart failure Context: recent URI Associated Symptoms: cough, sputum production Treatments Prior to Arrival: bronchodilator - Related Data Home Medications Medication Instructions Recorded Confirmed [id number] [id number] 2 tab PO Q6H PRN 12/02/18 12/02/18 [Excedrin] Previous Rx's Medication Instructions Recorded Albuterol Inhaler [Ventolin Hfa 1 - 2 puff INHALATION Q6HR PRN #1 12/31/18 Inhaler] inhaler predniSONE 20 mg PO BID #8 tab 12/31/18 Albuterol Nebulized [Ventolin 2.5 mg INHALATION Q4H PRN #25 nebu 01/11/19 Nebulized] Albuterol Sulfate [Proair Hfa] 1 - 2 puff INHALATION Q4H PRN #1 01/11/19 inhaler Azithromycin [Zithromax Z-pack] 0 mg PO DIRECTED #1 pack 01/11/19 Allergies Allergy/AdvReac Type Severity Reaction Status Date / Time gabapentin [From Neurontin] Allergy Swelling Verified 01/11/19 16:45 haloperidol [From Haldol] Allergy Unknown Verified 01/11/19 16:45 haloperidol lactate Allergy Unknown Verified 01/11/19 16:45 [From Haldol] ketorolac [From Toradol] Allergy Anaphylaxis Verified 01/11/19 16:45 latex Allergy RED SKIN Verified 01/11/19 16:45 aripiprazole [From Abilify] AdvReac Unknown Verified 01/11/19 16:45 risperidone [From Risperdal] AdvReac Unknown Verified 01/11/19 16:45 tramadol HCl [From Ultram] AdvReac Unknown Verified 01/11/19 16:45 ziprasidone HCl [From Geodon] AdvReac Unknown Verified 01/11/19 16:45 ziprasidone mesylate AdvReac Unknown Verified 01/11/19 16:45 [From Geodon] Review of Systems ROS Statement: Those systems with pertinent positive or pertinent negative responses have been documented in the HPI. ROS Other: All systems not noted in ROS Statement are negative. Past Medical History Past Medical History: Heart Failure, COPD, Fibromyalgia, Hypertension, Liver Disease, Osteoarthritis (OA), Seizure Disorder Additional Past Medical History / Comment(s): Other HX: hep c, chronic pain issues= chronic headaches chronic back pain, bronchitis, arthirits in back and bilateral hips, pancreatic cyst, History of Any Multi-Drug Resistant Organisms: None Reported Past Surgical History: Appendectomy, Back Surgery, Hysterectomy, Tubal Ligation Additional Past Surgical History / Comment(s): brain surgery for aneurysm has titanium clip in place., back surgery L4-L5, oral surgery. Past Anesthesia/Blood Transfusion Reactions: No Reported Reaction, Motion Sickness Additional Past Anesthesia/Blood Transfusion Reaction / Comment(s): Pt states she has never recieved blood. vertigo, clauterphobia Past Psychological History: Anxiety, Depression, Panic Disorder, PTSD Smoking Status: Current every day smoker Past Alcohol Use History: None Reported Past Drug Use History: Heroin, Marijuana, Methamphetamine, Opiates - Past Family History Father Family Medical History: Cancer Additional Family Medical History / Comment(s): Father of throat cancer at 78 yrs of age. Mother Additional Family Medical History / Comment(s): Mother of a brain aneurysm at age 44. General Exam Limitations: no limitations General appearance: alert, in no apparent distress Head exam: Present: atraumatic, normocephalic, normal inspection Eye exam: Present: normal appearance, PERRL, EOMI. Absent: scleral icterus, conjunctival injection, periorbital swelling ENT exam: Present: normal exam, mucous membranes moist Neck exam: Present: normal inspection. Absent: tenderness, meningismus, lymphadenopathy Respiratory exam: Present: wheezes. Absent: respiratory distress, rales, rhonchi, stridor Cardiovascular Exam: Present: regular rate, normal rhythm, normal heart sounds. Absent: systolic murmur, diastolic murmur, rubs, gallop, clicks GI/Abdominal exam: Present: soft, normal bowel sounds. Absent: distended, tenderness, guarding, rebound, rigid Extremities exam: Present: normal inspection, full ROM, normal capillary refill. Absent: tenderness, pedal edema, joint swelling, calf tenderness Back exam: Present: normal inspection Neurological exam: Present: alert, oriented X3, CN II-XII intact Psychiatric exam: Present: normal affect, normal mood Skin exam: Present: warm, dry, intact, normal color. Absent: rash Course Vital Signs 01/11/19 01/11/19 01/11/19 16:42 17:39 17:57 Temperature 99.1 F Pulse Rate 92 80 78 Respiratory 18 20 14 Rate Blood Pressure 128/91 O2 Sat by Pulse 96 Oximetry 01/11/19 18:14 Temperature 97.7 F Pulse Rate 96 Respiratory 20 Rate Blood Pressure 120/83 O2 Sat by Pulse 96 Oximetry - Reevaluation(s) Reevaluation #1: 01/11/19 17:36 Medical record is reviewed Reevaluation #2: Patient feeling significantly improved after breathing treatment and medications Medical Decision Making - Medical Decision Making 53 female the ER for evaluation of cough and congestion she has have pneumonia. Patient is choosing to follow her outpatient basis. Patient leg outpatient treatment. He does have severe COPD, feels better with no shortness of breath currently - Radiology Data Radiology results: report reviewed (Chest x-rays positive for pneumonia), image reviewed Disposition Clinical Impression: COPD exacerbation, Community acquired pneumonia Disposition: HOME SELF-CARE Condition: Good Instructions (If sedation given, give patient instructions): Community Acquired Pneumonia (ED) Prescriptions: Albuterol Sulfate [Proair Hfa] 1 - 2 puff INHALATION Q4H PRN #1 inhaler PRN Reason: Shortness Of Breath Albuterol Nebulized [Ventolin Nebulized] 2.5 mg INHALATION Q4H PRN #25 nebu PRN Reason: Shortness Of Breath Azithromycin [Zithromax Z-pack] 0 mg PO DIRECTED #1 pack Is patient prescribed a controlled substance at d/c from ED?: No Referrals: Zack Braxton DO [Primary Care Provider] - 1-2 days
[2019-01-11] MEDS ORDERED: DEXAMETHASONE 4 MG TAB PO STA (17:17)
[2019-01-11] MEDS ORDERED: IPRATROPIUM-ALBUTEROL 3 ML NEB INHALATION STA (17:17)
--- NOTE | 2019-01-11 17:35 | XR ---
EXAMINATION TYPE: XR chest 2V DATE OF EXAM: 01/11/2019 COMPARISON: 12/31/2018 HISTORY: Cough TECHNIQUE: Frontal and lateral views of the chest are obtained. FINDINGS: Heart and mediastinum are normal. There is subtle increased density over the left midlung suggestive of was mild infiltrate that is a change compared to last exam. IMPRESSION: Minimal infiltrate left midlung appears new compared to last exam. Normal heart.
[2019-01-11] MEDS ORDERED: cefTRIAXone 250 MG VIAL IM STA (17:44)
[2019-01-11] MEDS ORDERED: AZITHROMYCIN 500 MG TAB PO STA (17:44)
[2019-01-11 18:15] VITALS: BP 120/83; PULSE 96; RESP 20; TEMP 97.7
== END 2019-01-11 18:10 | disposition home or self-care (01) ==
LOC: EC 16:39
DX: J44.0 Chronic obstructive pulmonary disease with (acute) lower respiratory infection (principal); J18.9 Pneumonia, unspecified organism; J44.1 Chronic obstructive pulmonary disease with (acute) exacerbation; M16.0 Bilateral primary osteoarthritis of hip; M47.9 Spondylosis, unspecified; F17.200 Nicotine dependence, unspecified, uncomplicated; Z88.5 Allergy status to narcotic agent; Z88.6 Allergy status to analgesic agent; Z88.8 Allergy status to other drugs, medicaments and biological substances; Z91.040 Latex allergy status; Z79.82 Long term (current) use of aspirin
CPT/HCPCS: 94640; 71046; 99285; 96372; J8540; J0696

== ENCOUNTER 2019-07-28 19:11 | Emergency (ER) | payer MEDICARE, OTHER ==
[2019-07-28] MEDS ORDERED: diphenhydrAMINE 50 MG/ML 1 ML VIAL IM STA (19:53)
[2019-07-28] MEDS ORDERED: ACETAMINOPHEN TAB 500 MG TAB PO STA (19:54)
[2019-07-28] MEDS ORDERED: IBUPROFEN 600 MG TAB PO STA (19:54)
[2019-07-28 20:23] LABS: Appearance,Urine Turbid (Clear); Bacteria,Urine Rare /hpf; Bilirubin,Urine Negative (Negative); Blood,Urine Negative (Negative); Color,Urine Yellow; Glucose,Urine (UA) Negative (Negative); Ketones,Urine Negative (Negative); Leukocyte Esterase,Urine Negative (Negative); Nitrite,Urine Negative (Negative); Protein,Urine Negative (Negative); RBC,Urine 1 /hpf (0-5); Specific Gravity,Urine 1.023 (1.001-1.035); Squamous Epithelial Cell,Urine 1 /hpf (0-4); Urobilinogen,Urine <2.0 mg/dL (<2.0); WBC,Urine 2 /hpf (0-5)
[2019-07-28 20:36] LABS: Amphetamine Screen,Urine Not Detected (NotDetected); Barbiturate Screen,Urine Not Detected (NotDetected); Benzodiazepines Screen,Urine Not Detected (NotDetected); Cocaine Screen,Urine Not Detected (NotDetected); Methadone Screen, Urine Detected (NotDetected); Opiate Screen,Urine Not Detected (NotDetected); Oxycodone Screen, Urine Not Detected (NotDetected); Phencyclidine Screen,Urine Not Detected (NotDetected); Tricyclic Antidepressant,Urine Not Detected (NotDetected); Urn Cannabinoid Scrn Not Detected (NotDetected)
--- NOTE | 2019-07-28 20:57 | ED ---
General Adult HPI - General Chief complaint: ENT Stated complaint: chills/sore throat/SOB Time Seen by Provider: 07/28/19 19:39 Source: patient Mode of arrival: ambulatory Limitations: no limitations - History of Present Illness Initial comments: 53-year-old female patient presents to the emergency department today for evaluation of sore throat, headache, and loss of taste and smell. Patient states that she presents to the methadone clinic daily in [place]. Patient states she is concerned she contracted coronavirus. Patient states she's had a sore throat for a little over a week. States she developed a headache this morning. She is consistent with her usual migraine headaches as a result of a cranial surgery 15 years ago. States that she has also had decreased her taste and smell. Patient denies any nasal congestion or drainage. Denies cough or shortness of breath. She denies any fever or chills. She denies nausea, vomiting, or diarrhea. Patient denies taking any medication for her headache. Denies any blurred vision, double vision, weakness, or dizziness. - Related Data Home Medications Medication Instructions Recorded Confirmed [id number] [id number] 2 tab PO Q6H PRN 12/02/18 12/02/18 [Excedrin] Previous Rx's Medication Instructions Recorded Albuterol Inhaler (Mhu) [Ventolin 1 - 2 puff INHALATION Q6HR PRN #1 12/31/18 Hfa Inhaler (Mhu)] inhaler predniSONE [Deltasone] 20 mg PO BID #8 tab 12/31/18 Albuterol Nebulized [Ventolin 2.5 mg INHALATION Q4H PRN #25 nebu 01/11/19 Nebulized] Albuterol Sulfate [Proair Hfa] 1 - 2 puff INHALATION Q4H PRN #1 01/11/19 inhaler Azithromycin [Zithromax Z-pack] 0 mg PO DIRECTED #1 pack 01/11/19 Allergies Allergy/AdvReac Type Severity Reaction Status Date / Time gabapentin [From Neurontin] Allergy Swelling Verified 07/28/19 19:17 haloperidol [From Haldol] Allergy Unknown Verified 07/28/19 19:17 haloperidol lactate Allergy Unknown Verified 07/28/19 19:17 [From Haldol] ketorolac [From Toradol] Allergy Anaphylaxis Verified 07/28/19 19:17 latex Allergy RED SKIN Verified 07/28/19 19:17 aripiprazole [From Abilify] AdvReac Unknown Verified 07/28/19 19:17 risperidone [From Risperdal] AdvReac Unknown Verified 07/28/19 19:17 tramadol HCl [From Ultram] AdvReac Unknown Verified 07/28/19 19:17 ziprasidone HCl [From Geodon] AdvReac Unknown Verified 07/28/19 19:17 ziprasidone mesylate AdvReac Unknown Verified 07/28/19 19:17 [From Geodon] Review of Systems ROS Statement: Those systems with pertinent positive or pertinent negative responses have been documented in the HPI. ROS Other: All systems not noted in ROS Statement are negative. Past Medical History Past Medical History: Heart Failure, COPD, Fibromyalgia, Hypertension, Liver Disease, Osteoarthritis (OA), Seizure Disorder Additional Past Medical History / Comment(s): Other HX: hep c, chronic pain issues= chronic headaches chronic back pain, bronchitis, arthirits in back and bilateral hips, pancreatic cyst, History of Any Multi-Drug Resistant Organisms: None Reported Past Surgical History: Appendectomy, Back Surgery, Hysterectomy, Tubal Ligation Additional Past Surgical History / Comment(s): brain surgery for aneurysm has titanium clip in place., back surgery L4-L5, oral surgery. Past Anesthesia/Blood Transfusion Reactions: No Reported Reaction, Motion Sickness Additional Past Anesthesia/Blood Transfusion Reaction / Comment(s): Pt states she has never recieved blood. vertigo, clauterphobia Past Psychological History: Anxiety, Depression, Panic Disorder, PTSD Smoking Status: Current every day smoker Past Alcohol Use History: None Reported Past Drug Use History: None Reported - Past Family History Father Family Medical History: Cancer Additional Family Medical History / Comment(s): Father of throat cancer at 78 yrs of age. Mother Additional Family Medical History / Comment(s): Mother of a brain aneurysm at age 44. General Exam Limitations: no limitations General appearance: alert, in no apparent distress, other (This is a well- developed, well-nourished adult female patient in no acute distress. Vital signs upon presentation are temperature 98.5F, pulse 108, respirations 18, blood pressure 138/89, pulse ox 98% on room air.) Eye exam: Present: normal appearance, PERRL, EOMI. Absent: scleral icterus, conjunctival injection, periorbital swelling ENT exam: Present: normal exam, normal oropharynx, mucous membranes moist, TM's normal bilaterally Neck exam: Present: normal inspection. Absent: tenderness, meningismus, lymphadenopathy Respiratory exam: Present: normal lung sounds bilaterally. Absent: respiratory distress, wheezes, rales, rhonchi, stridor Cardiovascular Exam: Present: regular rate, normal rhythm, normal heart sounds. Absent: systolic murmur, diastolic murmur, rubs, gallop, clicks Neurological exam: Present: alert, oriented X3, CN II-XII intact, other (Strength in all 4 extremities is 5/5.) Psychiatric exam: Present: normal affect, normal mood Skin exam: Present: warm, dry, intact, normal color. Absent: rash Course Vital Signs 07/28/19 07/28/19 07/28/19 19:13 19:29 21:15 Temperature 98.5 F 98.4 F Pulse Rate 108 H 70 Respiratory 18 18 16 Rate Blood Pressure 138/89 116/85 O2 Sat by Pulse 98 98 Oximetry Medical Decision Making - Medical Decision Making 53-year-old female patient presents to the emergency department today for evaluation of headache, sore throat, loss of taste and smell. Headache is consistent with the patient's usual migraine pattern. She is given Tylenol, Motrin, and an injection of Benadryl. Upon reevaluation she does report improvement of headache. She was tested for coronavirus, this will result in 12 hours. She was also tested for strep which was negative. I did discuss findings and results with the patient. She is instructed to quarantine until she gets her coronavirus test results back. She is instructed to follow-up with her primary care physician for recheck in 1-2 days. Return parameters were discussed in detail. She verbalizes understanding and agrees with this plan. - Lab Data Lab Results 07/28/19 07/28/19 Range/Units 20:05 20:05 Urine Color Yellow Urine Appearance Turbid H (Clear) Urine pH 7.0 (5.0-8.0) Ur Specific Adrian 1.023 (1.001-1.035) Urine Protein Negative (Negative) Urine Glucose (UA) Negative (Negative) Urine Ketones Negative (Negative) Urine Blood Negative (Negative) Urine Nitrite Negative (Negative) Urine Bilirubin Negative (Negative) Urine Urobilinogen <2.0 (<2.0) mg/dL Ur Leukocyte Esterase Negative (Negative) Urine RBC 1 (0-5) /hpf Urine WBC 2 (0-5) /hpf Ur Squamous Epith Cells 1 (0-4) /hpf Urine Bacteria Rare H (None) /hpf Urine Opiates Screen Not Detected (NotDetected) Ur Oxycodone Screen Not Detected (NotDetected) Urine Methadone Screen Detected H (NotDetected) Ur Propoxyphene Screen Not Detected (NotDetected) Ur Barbiturates Screen Not Detected (NotDetected) U Tricyclic Antidepress Not Detected (NotDetected) Ur Phencyclidine Scrn Not Detected (NotDetected) Ur Amphetamines Screen Not Detected (NotDetected) U Methamphetamines Scrn Not Detected (NotDetected) U Benzodiazepines Scrn Not Detected (NotDetected) Urine Cocaine Screen Not Detected (NotDetected) U Marijuana (THC) Screen Not Detected (NotDetected) Group A Strep Rapid Negative (Negative) Disposition Clinical Impression: Pharyngitis, Headache Disposition: HOME SELF-CARE Condition: Good Instructions (If sedation given, give patient instructions): Pharyngitis (ED), Acute Headache (ED) Additional Instructions: Follow-up with your primary care physician for recheck in 1-2 days. Discussed the mass to the left side of your face and asked for a new order for your MRI that he missed. Continue home medications for pain. Await your coronavirus testing results. Keep quarantined until you hear of your results. Is patient prescribed a controlled substance at d/c from ED?: No Referrals: Zack Braxton DO [Primary Care Provider] - 1-2 days Time of Disposition: 20:57
[2019-07-28 21:18] VITALS: BP 116/85; PULSE 70; RESP 16; TEMP 98.4
== END 2019-07-28 21:15 | disposition home or self-care (01) ==
LOC: EC 19:11
DX: J02.9 Acute pharyngitis, unspecified (principal); R06.02 Shortness of breath; Z20.828 Contact with and (suspected) exposure to other viral communicable diseases; F17.200 Nicotine dependence, unspecified, uncomplicated; Z86.79 Personal history of other diseases of the circulatory system; Z87.09 Personal history of other diseases of the respiratory system; Z88.8 Allergy status to other drugs, medicaments and biological substances; Z88.6 Allergy status to analgesic agent; Z91.040 Latex allergy status; Z88.5 Allergy status to narcotic agent
CPT/HCPCS: 99284; 96372; 81001; 80306; 87081; 87430; U0003; J1200

== ENCOUNTER 2020-10-04 08:52 | Emergency (ER) | payer MEDICARE, OTHER ==
[2020-10-04 08:59] VITALS: TEMP 98.2
[2020-10-04 09:18] VITALS: BP 156/95; PULSE 72; RESP 20
--- NOTE | 2020-10-04 09:36 | ED ---
General Adult HPI - General Chief complaint: Skin/Abscess/Foreign Body Stated complaint: lump on lt side of face Time Seen by Provider: 10/04/20 09:23 Source: patient, RN notes reviewed, old records reviewed Mode of arrival: ambulatory Limitations: no limitations - History of Present Illness Initial comments: 54-year-old female who had presented for anxiety, currently out of her Klonopin. Second complaint is of a small lump on the left angle of her mandible which is been present for the past 4 years. No erythema. No drainage. No increased in size. No ear pain. No URI symptoms. No headache. Patient has no abdominal pain nausea vomiting. No chest pain. She is requesting some Klonopin for her anxiety. She states she does follow with the methadone clinic and is doing quite well. She's been unable to get into see her psychiatrist for refill of her anxiety medication. No suicidal or homicidal thoughts. - Related Data Home Medications Medication Instructions Recorded Confirmed [id number] [phone] 2 tab PO Q6H PRN 12/02/18 12/02/18 [Excedrin] Previous Rx's Medication Instructions Recorded Albuterol Inhaler (Mhu) [Ventolin 1 - 2 puff INHALATION Q6HR PRN #1 12/31/18 Hfa Inhaler (Mhu)] inhaler predniSONE [Deltasone] 20 mg PO BID #8 tab 12/31/18 Albuterol Nebulized [Ventolin 2.5 mg INHALATION Q4H PRN #25 nebu 01/11/19 Nebulized] Albuterol Sulfate [Proair Hfa] 1 - 2 puff INHALATION Q4H PRN #1 01/11/19 inhaler Azithromycin [Zithromax Z-pack (6 0 mg PO DIRECTED #1 pack 01/11/19 tabs)] clonazePAM [KlonoPIN] 1 mg PO BID PRN 3 Days #6 tab 10/04/20 Allergies Allergy/AdvReac Type Severity Reaction Status Date / Time gabapentin [From Neurontin] Allergy Swelling Verified 10/04/20 08:54 haloperidol [From Haldol] Allergy Unknown Verified 10/04/20 08:54 haloperidol lactate Allergy Unknown Verified 10/04/20 08:54 [From Haldol] ketorolac [From Toradol] Allergy Anaphylaxis Verified 10/04/20 08:54 latex Allergy RED SKIN Verified 10/04/20 08:54 aripiprazole [From Abilify] AdvReac Unknown Verified 10/04/20 08:54 risperidone [From Risperdal] AdvReac Unknown Verified 10/04/20 08:54 tramadol HCl [From Ultram] AdvReac Unknown Verified 10/04/20 08:54 ziprasidone HCl [From Geodon] AdvReac Unknown Verified 10/04/20 08:54 ziprasidone mesylate AdvReac Unknown Verified 10/04/20 08:54 [From Geodon] Review of Systems ROS Statement: Those systems with pertinent positive or pertinent negative responses have been documented in the HPI. ROS Other: All systems not noted in ROS Statement are negative. Past Medical History Past Medical History: Heart Failure, COPD, Fibromyalgia, Hypertension, Liver Disease, Osteoarthritis (OA), Seizure Disorder Additional Past Medical History / Comment(s): Other HX: hep c, chronic pain issues= chronic headaches chronic back pain, bronchitis, arthirits in back and bilateral hips, pancreatic cyst, History of Any Multi-Drug Resistant Organisms: None Reported Past Surgical History: Appendectomy, Back Surgery, Hysterectomy, Tubal Ligation Additional Past Surgical History / Comment(s): brain surgery for aneurysm has titanium clip in place., back surgery L4-L5, oral surgery. Past Anesthesia/Blood Transfusion Reactions: No Reported Reaction, Motion Sickness Additional Past Anesthesia/Blood Transfusion Reaction / Comment(s): Pt states she has never recieved blood. vertigo, clauterphobia Past Psychological History: Anxiety, Depression, Panic Disorder, PTSD Smoking Status: Current every day smoker Past Alcohol Use History: None Reported Past Drug Use History: None Reported - Past Family History Father Family Medical History: Cancer Additional Family Medical History / Comment(s): Father of throat cancer at 78 yrs of age. Mother Additional Family Medical History / Comment(s): Mother of a brain aneurysm at age 44. General Exam Limitations: no limitations General appearance: alert, in no apparent distress, anxious Head exam: Present: atraumatic, normocephalic Eye exam: Present: normal appearance. Absent: PERRL ENT exam: Present: normal oropharynx, other (Small approximately 1 cm firm mass at the angle of the mandible on the left side. No signs to suggest infection, the left tympanic membrane is within normal limits.) Neck exam: Present: normal inspection. Absent: tenderness, meningismus Respiratory exam: Present: normal lung sounds bilaterally. Absent: respiratory distress Cardiovascular Exam: Present: regular rate, normal rhythm Extremities exam: Present: normal inspection, normal capillary refill Neurological exam: Present: alert, oriented X3, CN II-XII intact. Absent: motor sensory deficit Psychiatric exam: Present: anxious. Absent: homicidal ideation, suicidal ideation Skin exam: Present: warm, dry, intact Course Vital Signs 10/04/20 10/04/20 08:55 09:06 Temperature 98.2 F Pulse Rate 90 72 Respiratory 18 20 Rate Blood Pressure 175/91 156/95 O2 Sat by Pulse 97 95 Oximetry Medical Decision Making - Medical Decision Making 54-year-old female she presented with predominantly anxiety and need for medication refill. She did have a second complaint of a lump that is been on the left side of her mandible for the past 4 years. This is unchanged. No signs of infection. She will follow-up with ENT. She's given three-day refill of her Klonopin and she will follow-up with her primary care physician and her psychiatrist. Disposition Clinical Impression: Anxiety Disposition: HOME SELF-CARE Condition: Fair Instructions (If sedation given, give patient instructions): Anxiety (ED) Prescriptions: clonazePAM [KlonoPIN] 1 mg PO BID PRN 3 Days #6 tab PRN Reason: Anxiety Is patient prescribed a controlled substance at d/c from ED?: No Referrals: None,Stated [Primary Care Provider] - 1-2 days Herberth Pedroza MD [STAFF PHYSICIAN] - 1-2 days Carmen Sorto MD [REFERRING] - 1-2 days Time of Disposition: 09:34
== END 2020-10-04 09:52 | disposition home or self-care (01) ==
LOC: EC 08:52
DX: F41.9 Anxiety disorder, unspecified (principal); R22.0 Localized swelling, mass and lump, head; I11.0 Hypertensive heart disease with heart failure; I50.9 Heart failure, unspecified; J44.9 Chronic obstructive pulmonary disease, unspecified; G40.909 Epilepsy, unspecified, not intractable, without status epilepticus; M19.90 Unspecified osteoarthritis, unspecified site; M79.7 Fibromyalgia; F32.9 Major depressive disorder, single episode, unspecified; F17.200 Nicotine dependence, unspecified, uncomplicated; Z79.82 Long term (current) use of aspirin; Z79.52 Long term (current) use of systemic steroids; Z79.51 Long term (current) use of inhaled steroids; Z79.899 Other long term (current) drug therapy; Z88.8 Allergy status to other drugs, medicaments and biological substances; Z86.19 Personal history of other infectious and parasitic diseases; Z90.49 Acquired absence of other specified parts of digestive tract; Z91.040 Latex allergy status
CPT/HCPCS: 99283

== ENCOUNTER 2020-10-26 14:42 | Emergency (ER) | payer MEDICARE, OTHER ==
[2020-10-26 14:46] VITALS: TEMP 99.3
--- NOTE | 2020-10-26 15:31 | ED ---
ENT HPI - General Chief complaint: Dental/Oral Stated complaint: Dental Pain Time Seen by Provider: 10/26/20 15:03 Source: patient, RN notes reviewed, old records reviewed Mode of arrival: ambulatory Limitations: no limitations - History of Present Illness Initial comments: 55-year-old female alert and oriented 4 presents to the emergency room with com plaints of a lump to the left side of her face that she believes is a surgical sponge from 2004. Patient believes that she has become "septic". She denies any fevers, nausea vomiting or diarrhea. She states that she can feel the lump on the inside of her mouth and it is tender to touch and she's been seen multiple times by many different providers and no one will remove it. Patient does have a history of COPD, fibromyalgia, hypertension, seizures and headaches. She is afebrile and well appearing but anxioius in the emergency room. MD complaint: other (Lungs to the left mandible) -: year(s) (2004) Severity scale (1-10): 6 Quality: sharp Consistency: constant Improves with: none Worsens with: other (The patient) Context- Dental: history of dental caries - Related Data Home Medications Medication Instructions Recorded Confirmed [id number] 2 tab PO Q6H PRN 12/02/18 12/02/18 [Excedrin] Previous Rx's Medication Instructions Recorded Albuterol Inhaler (Mhu) [Ventolin 1 - 2 puff INHALATION Q6HR PRN #1 12/31/18 Hfa Inhaler (Mhu)] inhaler predniSONE [Deltasone] 20 mg PO BID #8 tab 12/31/18 Albuterol Nebulized [Ventolin 2.5 mg INHALATION Q4H PRN #25 nebu 01/11/19 Nebulized] Albuterol Sulfate [Proair Hfa] 1 - 2 puff INHALATION Q4H PRN #1 01/11/19 inhaler Azithromycin [Zithromax Z-pack (6 0 mg PO DIRECTED #1 pack 01/11/19 tabs)] clonazePAM [KlonoPIN] 1 mg PO BID PRN 3 Days #6 tab 10/04/20 Allergies Allergy/AdvReac Type Severity Reaction Status Date / Time gabapentin [From Neurontin] Allergy Swelling Verified 10/04/20 08:54 haloperidol [From Haldol] Allergy Unknown Verified 10/04/20 08:54 haloperidol lactate Allergy Unknown Verified 10/04/20 08:54 [From Haldol] ketorolac [From Toradol] Allergy Anaphylaxis Verified 10/04/20 08:54 latex Allergy RED SKIN Verified 10/04/20 08:54 aripiprazole [From Abilify] AdvReac Unknown Verified 10/04/20 08:54 risperidone [From Risperdal] AdvReac Unknown Verified 10/04/20 08:54 tramadol HCl [From Ultram] AdvReac Unknown Verified 10/04/20 08:54 ziprasidone HCl [From Geodon] AdvReac Unknown Verified 10/04/20 08:54 ziprasidone mesylate AdvReac Unknown Verified 10/04/20 08:54 [From Geodon] Review of Systems ROS Statement: Those systems with pertinent positive or pertinent negative responses have been documented in the HPI. ROS Other: All systems not noted in ROS Statement are negative. Past Medical History Past Medical History: Heart Failure, COPD, Fibromyalgia, Hypertension, Liver Disease, Osteoarthritis (OA), Seizure Disorder Additional Past Medical History / Comment(s): Other HX: hep c, chronic pain iss ues= chronic headaches chronic back pain, bronchitis, arthirits in back and bilateral hips, pancreatic cyst, History of Any Multi-Drug Resistant Organisms: None Reported Past Surgical History: Appendectomy, Back Surgery, Hysterectomy, Tubal Ligation Additional Past Surgical History / Comment(s): brain surgery for aneurysm has titanium clip in place., back surgery L4-L5, oral surgery. Past Anesthesia/Blood Transfusion Reactions: No Reported Reaction, Motion Sickness Additional Past Anesthesia/Blood Transfusion Reaction / Comment(s): Pt states she has never recieved blood. vertigo, clauterphobia Past Psychological History: Anxiety, Depression, Panic Disorder, PTSD Smoking Status: Current every day smoker Past Alcohol Use History: None Reported Past Drug Use History: None Reported - Past Family History Father Family Medical History: Cancer Additional Family Medical History / Comment(s): Father of throat cancer at 78 yrs of age. Mother Additional Family Medical History / Comment(s): Mother of a brain aneurysm at age 44. General Exam Limitations: no limitations General appearance: alert, in no apparent distress Head exam: Present: atraumatic, normocephalic, normal inspection Eye exam: Present: normal appearance, PERRL, EOMI. Absent: scleral icterus, conjunctival injection, periorbital swelling ENT exam: Present: normal exam, normal oropharynx, mucous membranes moist Neck exam: Present: normal inspection, full ROM. Absent: tenderness, meningismus, lymphadenopathy Respiratory exam: Present: normal lung sounds bilaterally. Absent: respiratory distress, wheezes, rales, rhonchi, stridor Cardiovascular Exam: Present: tachycardia Neurological exam: Present: alert, oriented X3, CN II-XII intact, normal gait Expanded Patient oriented to: Present: person, place, time Speech: Present: fluid speech Cranial nerves: EOM's Intact: Normal, Gag Reflex: Normal, Tongue Deviation: Normal Eye Response: (4) open spontaneously Motor Response: (6) obeys commands Verbal Response: (5) oriented Ronnell Total: 15 Psychiatric exam: Present: anxious Skin exam: Present: warm, dry, intact, normal color. Absent: rash, cyanosis, diaphoretic, petechiae, pallor Course Vital Signs 10/26/20 10/26/20 14:43 16:35 Temperature 99.3 F Pulse Rate 103 H 108 H Respiratory 18 16 Rate Blood Pressure 145/99 145/100 O2 Sat by Pulse 99 95 Oximetry Medical Decision Making - Medical Decision Making CT Panorex shows no evidence of abscess. There is no fracture seen of the mandible. WBC count is 9.2 with no shift, patient is afebrile. This is likely a cyst and patient will be directed to follow up again with ENT. I did assure patient that this is a not a surgical sponge left from 2004 and that she is not septic which is her biggest concern. Patient is acceptable to being discharge but very anxious and asking for Xanax which was provided. Case discussed with Dr. Hanna - Lab Data Result diagrams: 10/26/20 15:28 Lab Results 10/26/20 Range/Units 15:28 WBC 9.2 (3.8-10.6) k/uL RBC 5.44 H (3.80-5.40) m/uL Hgb 16.4 H (11.4-16.0) gm/dL Hct 48.9 H (34.0-46.0) % MCV 90.0 (80.0-100.0) fL MCH 30.1 (25.0-35.0) pg MCHC 33.5 (31.0-37.0) g/dL RDW 12.9 (11.5-15.5) % Plt Count 100 L (150-450) k/uL MPV 8.8 Neutrophils % 75 % Lymphocytes % 19 % Monocytes % 4 % Eosinophils % 1 % Basophils % 0 % Neutrophils # 6.9 (1.3-7.7) k/uL Lymphocytes # 1.8 (1.0-4.8) k/uL Monocytes # 0.4 (0-1.0) k/uL Eosinophils # 0.0 (0-0.7) k/uL Basophils # 0.0 (0-0.2) k/uL Disposition Clinical Impression: Cyst Disposition: HOME SELF-CARE Condition: Good Additional Instructions: Follow-up with ENT for continuation of care. Return to the emergency room with any new or worsening symptoms Is patient prescribed a controlled substance at d/c from ED?: No Referrals: None,Stated [Primary Care Provider] - 1-2 days Edmundo Weathers DO [Doctor of Osteopathic Medicine] - 1-2 days Time of Disposition: 16:08
[2020-10-26 15:38] LABS: Basophils % (A) 0 %; Eosinophils % (A) 1 %; HCT 48.9 % (34.0-46.0); HGB 16.4 gm/dL (11.4-16.0); Lymphocytes # (A) 1.8 k/uL (1.0-4.8); Lymphocytes % (A) 19 %; MCH 30.1 pg (25.0-35.0); MCHC 33.5 g/dL (31.0-37.0); Mean Platelet Volume 8.8; Monocytes # (A) 0.4 k/uL (0-1.0); Monocytes % (A) 4 %; Neutrophils # (A) 6.9 k/uL (1.3-7.7); Neutrophils % (A) 75 %; Platelet Count 100 k/uL (150-450); RBC 5.44 m/uL (3.80-5.40); RDW 12.9 % (11.5-15.5); WBC 9.2 k/uL (3.8-10.6)
--- NOTE | 2020-10-26 15:58 | CT ---
EXAMINATION TYPE: CT Panorex DATE OF EXAM: 10/26/2020 COMPARISON: None HISTORY: Left sided TMJ pain and swelling. CT of the mandible was performed with the reconstructed Panorex view submitted. Patient has 4 lower teeth remaining and is otherwise edentulous. I do not see evidence for bony destr uctive process to suggest abscess. TMJs are symmetric. No evidence for dislocation. No fracture ident ified. Soft tissues are within normal limits. Paranasal sinuses are well-aerated. IMPRESSION: No evidence for abscess or bony destructive process. No fracture seen of the mandible.
[2020-10-26] MEDS ORDERED: ALPRAZolam 1 MG TAB PO STA (16:21)
[2020-10-26 16:37] VITALS: BP 145/100; PULSE 108; RESP 16
== END 2020-10-26 16:37 | disposition home or self-care (01) ==
LOC: EC 14:42
DX: M27.40 Unspecified cyst of jaw (principal); I11.0 Hypertensive heart disease with heart failure; I50.9 Heart failure, unspecified; J44.9 Chronic obstructive pulmonary disease, unspecified; M19.90 Unspecified osteoarthritis, unspecified site; F41.9 Anxiety disorder, unspecified; F32.9 Major depressive disorder, single episode, unspecified; F43.12 Post-traumatic stress disorder, chronic; F17.200 Nicotine dependence, unspecified, uncomplicated; G40.909 Epilepsy, unspecified, not intractable, without status epilepticus; Z91.040 Latex allergy status; Z88.6 Allergy status to analgesic agent; Z88.1 Allergy status to other antibiotic agents; Z90.49 Acquired absence of other specified parts of digestive tract; Z90.710 Acquired absence of both cervix and uterus; Z98.51 Tubal ligation status; Z79.82 Long term (current) use of aspirin
CPT/HCPCS: 36415; 70486; 85025; 99284

== ENCOUNTER 2021-04-11 19:44 | Inpatient (IN) | payer MEDICARE, MEDICAID ==
[2021-04-11] MEDS ORDERED: SODIUM CHLORIDE 0.9% 1,000 ML IV STA (20:03)
[2021-04-11] MEDS ORDERED: LORazepam 2 MG/ML INJ IV STA (20:03)
--- NOTE | 2021-04-11 20:53 | ED ---
General Adult HPI - General Chief complaint: Psychiatric Symptoms Stated complaint: Mental Health Time Seen by Provider: 04/11/21 19:54 Source: patient, police, RN notes reviewed, old records reviewed Mode of arrival: ambulatory - History of Present Illness Initial comments: Sheree is a 55-year-old female with past medical history remarkable for polysubstance abuse, COPD, fibromyalgia who presents emergency department after being petitioned by police with reports of suicidal ideations as well as a plan. She also states she used methamphetamine 2 days ago. She states she is currently anxious, but denies any current alcohol or drug use. Denies any chest pain, shortness breath, abdominal pain, nausea, vomiting. She does endorse suicidal ideations as well as a possible plan of jumping [place]. States she has been under more stress at home. Denies any homicidal ideations, attempts, plans. Denies any visual or auditory hallucinations at this time. Patient was petitioned by police for psychiatric evaluation. - Related Data Home Medications Medication Instructions Recorded Confirmed QUEtiapine [SEROquel] 50 mg PO HS 04/11/21 04/11/21 clonazePAM [KlonoPIN] 0.5 mg PO BID PRN 04/11/21 04/11/21 traZODone HCL [Desyrel] 50 mg PO HS 04/11/21 04/11/21 Allergies Allergy/AdvReac Type Severity Reaction Status Date / Time gabapentin [From Neurontin] Allergy Swelling Verified 04/11/21 21:13 haloperidol [From Haldol] Allergy Unknown Verified 04/11/21 21:13 haloperidol lactate Allergy Unknown Verified 04/11/21 21:13 [From Haldol] ketorolac [From Toradol] Allergy Anaphylaxis Verified 04/11/21 21:13 latex Allergy RED SKIN Verified 04/11/21 21:13 aripiprazole [From Abilify] AdvReac Unknown Verified 04/11/21 21:13 risperidone [From Risperdal] AdvReac Unknown Verified 04/11/21 21:13 tramadol HCl [From Ultram] AdvReac Unknown Verified 04/11/21 21:13 ziprasidone HCl [From Geodon] AdvReac Unknown Verified 04/11/21 21:13 ziprasidone mesylate AdvReac Unknown Verified 04/11/21 21:13 [From Geodon] Review of Systems ROS Statement: Those systems with pertinent positive or pertinent negative responses have been documented in the HPI. Review of Systems: CONST: Denies fever EYES: Denies blurry vision ENT: Denies nasal congestion C/V: Denies Chest pain RESP: Denies shortness of breath GI: Denies abdominal pain : Denies dysuria SKIN: Denies rash. MSK: Denies joint pain. NEURO: Denies headache PSYCH: Denies homicidal ideations/plans/attempts. Denies visual or auditory malave llucinations. She endorses suicidal ideation, plan. Denies attempt. ROS Other: All systems not noted in ROS Statement are negative. Past Medical History Past Medical History: Heart Failure, COPD, Fibromyalgia, Hypertension, Liver Dis ease, Osteoarthritis (OA), Seizure Disorder Additional Past Medical History / Comment(s): Other HX: hep c, chronic pain issues= chronic headaches chronic back pain, bronchitis, arthirits in back and bilateral hips, pancreatic cyst, History of Any Multi-Drug Resistant Organisms: None Reported Past Surgical History: Appendectomy, Back Surgery, Hysterectomy, Tubal Ligation Additional Past Surgical History / Comment(s): brain surgery for aneurysm has titanium clip in place., back surgery L4-L5, oral surgery. Past Anesthesia/Blood Transfusion Reactions: No Reported Reaction, Motion Sickness Additional Past Anesthesia/Blood Transfusion Reaction / Comment(s): Pt states she has never recieved blood. vertigo, clauterphobia Past Psychological History: Anxiety, Depression, Panic Disorder, PTSD Smoking Status: Current every day smoker Past Alcohol Use History: None Reported Past Drug Use History: None Reported - Past Family History Father Family Medical History: Cancer Additional Family Medical History / Comment(s): Father of throat cancer at 78 yrs of age. Mother Additional Family Medical History / Comment(s): Mother of a brain aneurysm at age 44. General Exam - General Exam Comments Initial Comments: General: Appears in no acute distress. Patient does appear mildly anxious. HEAD: Normal with no signs of head trauma. EYES: PERRLA, EOMI, conjunctiva normal, no discharge. Pupils are 3 mm and equal bilaterally. ENT: Hearing grossly intact, normal oropharynx. RESPIRATORY: Clear breath sounds bilaterally. No wheezes, rales, or rhonchi. C/V: Patient is tachycardic with a regular rhythm. S1 and S2 auscultated. No peripheral edema. Peripheral pulses are 2+ intact throughout. ABD: Abd is soft, nontender, nondistended EXT: Normal range of motion, no obvious deformity SKIN: No rashes or lesions observed on exposed skin. NEURO: Alert and oriented 4. No focal deficits. Course Vital Signs 04/11/21 04/12/21 04/12/21 19:46 01:52 02:00 Temperature 98.7 F 97.6 F 97.9 F Pulse Rate 128 H 90 88 Respiratory 18 17 16 Rate Blood Pressure 167/99 136/77 141/84 O2 Sat by Pulse 95 97 96 Oximetry Medical Decision Making - Medical Decision Making The patient's presentation and physical exam, I believe she does require psychiatric evaluation, and she is petitioned. However I would like to medical clear for his pain basic labs will be ordered as well as a screening EKG. She'll be administered 1 L fluid bolus as well as IV Ativan. Patient was in agreement this plan. BAT is 0.00. EKG showed no signs of acute ischemia. At this time, laboratory studies are still pending on the patient. Medical clearance is pending results of laboratory studies. Patient was signed out to the emergency department physician, Dr. Post. Patient was in stable condition. Psych eval following medical clearance. - Lab Data Result diagrams: 04/12/21 07:41 04/12/21 07:41 Lab Results 04/11/21 04/11/21 04/11/21 Range/Units 20:29 20:29 20:29 WBC (3.8-10.6) k/uL RBC (3.80-5.40) m/uL Hgb (11.4-16.0) gm/dL Hct (34.0-46.0) % MCV (80.0-100.0) fL MCH (25.0-35.0) pg MCHC (31.0-37.0) g/dL RDW (11.5-15.5) % Plt Count (150-450) k/uL MPV Neutrophils % % Lymphocytes % % Monocytes % % Eosinophils % % Basophils % % Neutrophils # (1.3-7.7) k/uL Lymphocytes # (1.0-4.8) k/uL Monocytes # (0-1.0) k/uL Eosinophils # (0-0.7) k/uL Basophils # (0-0.2) k/uL Sodium (137-145) mmol/L Potassium (3.5-5.1) mmol/L Chloride (98-107) mmol/L Carbon Dioxide (22-30) mmol/L Anion Gap mmol/L BUN (7-17) mg/dL Creatinine (0.52-1.04) mg/dL Est GFR (CKD-EPI)AfAm (>60 ml/min/1.73 sqM) Est GFR (CKD-EPI)NonAf (>60 ml/min/1.73 sqM) Glucose (74-99) mg/dL Calcium (8.4-10.2) mg/dL Magnesium (1.6-2.3) mg/dL Urine HCG, Qual Not Detected (Not Detectd) Urine Opiates Screen Negative Detected H (Negative) Ur Oxycodone Screen Not Detected (NotDetected) Urine Methadone Screen Positive A Detected H (Negative) Ur Propoxyphene Screen Negative Not Detected (Negative) Ur Barbiturates Screen Not Detected (NotDetected) Urine Barbiturates Negative (Negative) U Tricyclic Antidepress Not Detected (NotDetected) Ur Phencyclidine Scrn Negative Not Detected (Negative) Ur Amphetamine Screen Positive A (Negative) Ur Amphetamines Screen Detected H (NotDetected) U Methamphetamines Scrn Detected H (NotDetected) U Benzodiazepines Scrn Positive A Detected H (Negative) Urine Cocaine Screen Positive A Detected H (Negative) U Cannabinoids Screen Positive A (Negative) U Marijuana (THC) Screen Detected H (NotDetected) Urine Alcohol Negative (Negative) Serum Alcohol mg/dL Coronavirus (PCR) (Not Detectd) 04/11/21 04/11/21 04/12/21 Range/Units 20:39 20:39 03:13 WBC 10.6 (3.8-10.6) k/uL RBC 5.52 H (3.80-5.40) m/uL Hgb 16.4 H (11.4-16.0) gm/dL Hct 50.8 H (34.0-46.0) % MCV 92.0 (80.0-100.0) fL MCH 29.7 (25.0-35.0) pg MCHC 32.3 (31.0-37.0) g/dL RDW 13.7 (11.5-15.5) % Plt Count 115 L (150-450) k/uL MPV 8.4 Neutrophils % 65 % Lymphocytes % 26 % Monocytes % 5 % Eosinophils % 1 % Basophils % 1 % Neutrophils # 6.9 (1.3-7.7) k/uL Lymphocytes # 2.8 (1.0-4.8) k/uL Monocytes # 0.6 (0-1.0) k/uL Eosinophils # 0.1 (0-0.7) k/uL Basophils # 0.1 (0-0.2) k/uL Sodium 139 (137-145) mmol/L Potassium 3.8 (3.5-5.1) mmol/L Chloride 102 (98-107) mmol/L Carbon Dioxide 24 (22-30) mmol/L Anion Gap 13 mmol/L BUN 18 H (7-17) mg/dL Creatinine 0.80 (0.52-1.04) mg/dL Est GFR (CKD-EPI)AfAm >90 (>60 ml/min/1.73 sqM) Est GFR (CKD-EPI)NonAf 84 (>60 ml/min/1.73 sqM) Glucose 90 (74-99) mg/dL Calcium 9.5 (8.4-10.2) mg/dL Magnesium 1.8 (1.6-2.3) mg/dL Urine HCG, Qual (Not Detectd) Urine Opiates Screen (Negative) Ur Oxycodone Screen (NotDetected) Urine Methadone Screen (Negative) Ur Propoxyphene Screen (Negative) Ur Barbiturates Screen (NotDetected) Urine Barbiturates (Negative) U Tricyclic Antidepress (NotDetected) Ur Phencyclidine Scrn (Negative) Ur Amphetamine Screen (Negative) Ur Amphetamines Screen (NotDetected) U Methamphetamines Scrn (NotDetected) U Benzodiazepines Scrn (Negative) Urine Cocaine Screen (Negative) U Cannabinoids Screen (Negative) U Marijuana (THC) Screen (NotDetected) Urine Alcohol (Negative) Serum Alcohol <10 mg/dL Coronavirus (PCR) Not Detected (Not Detectd) - EKG Data -: EKG Interpreted by Me EKG Comments: 12-lead Electrocardiogram Interpretation Note EKG was reviewed and interpreted by myself. 12-lead ECG performed at 2016 is interpreted by me as revealing sinus tachycardia at a rate of 103 beats per minute. [place] is normal. LA interval is 140 ms, QRS duration is 90 ms, QTc is 425 ms.. There were no ST or T wave abnormalities to suggest myocardial ischemia or injury. R wave progression across the precordium was satisfactory. By my interpretation this EKG is non-diagnostic for acute ischemia. Disposition Clinical Impression: Encounter for psychiatric assessment, Suicidal ideation, Acute anxiety Disposition: ADMITTED IP TO THIS HOSP Condition: Stable
[2021-04-11 20:57] LABS: Basophils # (A) 0.1 k/uL (0-0.2); Basophils % (A) 1 %; Eosinophils # (A) 0.1 k/uL (0-0.7); Eosinophils % (A) 1 %; HCT 50.8 % (34.0-46.0); HGB 16.4 gm/dL (11.4-16.0); Lymphocytes # (A) 2.8 k/uL (1.0-4.8); Lymphocytes % (A) 26 %; MCH 29.7 pg (25.0-35.0); MCHC 32.3 g/dL (31.0-37.0); Mean Platelet Volume 8.4; Monocytes # (A) 0.6 k/uL (0-1.0); Monocytes % (A) 5 %; Neutrophils # (A) 6.9 k/uL (1.3-7.7); Neutrophils % (A) 65 %; Platelet Count 115 k/uL (150-450); RBC 5.52 m/uL (3.80-5.40); RDW 13.7 % (11.5-15.5); WBC 10.6 k/uL (3.8-10.6)
[2021-04-11 21:06] LABS: African American GFR (CKD) >90 (>60 ml/min/1.73 sqM); Alcohol <10 mg/dL; Anion Gap 13 mmol/L; Blood Urea Nitrogen 18 mg/dL (7-17); Calcium 9.5 mg/dL (8.4-10.2); Carbon Dioxide 24 mmol/L (22-30); Chloride 102 mmol/L (98-107); Glucose 90 mg/dL (74-99); Magnesium 1.8 mg/dL (1.6-2.3); Non-African American GFR(CKD) 84 (>60 ml/min/1.73 sqM); Potassium 3.8 mmol/L (3.5-5.1); Sodium 139 mmol/L (137-145)
[2021-04-11 21:42] LABS: Amphetamine Screen,Urine Detected (NotDetected); Barbiturate Screen,Urine Not Detected (NotDetected); Benzodiazepines Screen,Urine Detected (NotDetected); Cocaine Screen,Urine Detected (NotDetected); Methadone Screen, Urine Detected (NotDetected); Opiate Screen,Urine Detected (NotDetected); Oxycodone Screen, Urine Not Detected (NotDetected); Phencyclidine Screen,Urine Not Detected (NotDetected); Tricyclic Antidepressant,Urine Not Detected (NotDetected); Urn Cannabinoid Scrn Detected (NotDetected)
[2021-04-12] MEDS ORDERED: LORazepam 2 MG/ML INJ IV STA (00:29)
[2021-04-12] MEDS ORDERED: ZOLPIDEM 10 MG TAB PO ONE ×2 (04:00→04:15)
[2021-04-12] MEDS ORDERED: ZOLPIDEM 5 MG TAB PO ONE (04:15)
[2021-04-12] MEDS ORDERED: MAG HYDROX/AL HYDROX/SIMETH 30 ML CUP PO PRN (05:03)
[2021-04-12] MEDS ORDERED: MAGNESIUM HYDROXIDE 2,400 MG/10 ML CUP PO PRN (05:03)
[2021-04-12] MEDS ORDERED: LORazepam 2 MG/ML INJ IM PRN (05:03)
[2021-04-12] MEDS ORDERED: LORazepam 1 MG TAB PO PRN (05:03)
[2021-04-12] MEDS ORDERED: ACETAMINOPHEN TAB 325 MG TAB PO PRN (05:03)
[2021-04-12 05:20] VITALS: RESP 16
[2021-04-12] MEDS ORDERED: flUPHENAZine 2.5 MG/ML (MDV) 10 ML VIAL IM PRN (06:00)
[2021-04-12] MEDS: NICOTINE 14MG/24HR PATCH TRANSDERM SCH (07:57)
[2021-04-12 08:11] LABS: Basophils # (A) 0.1 k/uL (0-0.2); Basophils % (A) 1 %; Eosinophils # (A) 0.3 k/uL (0-0.7); Eosinophils % (A) 3 %; HGB 16.6 gm/dL (11.4-16.0); Lymphocytes # (A) 3.4 k/uL (1.0-4.8); Lymphocytes % (A) 33 %; MCH 30.6 pg (25.0-35.0); MCHC 33.2 g/dL (31.0-37.0); MCV 92.3 fL (80.0-100.0); Mean Platelet Volume 8.8; Monocytes # (A) 0.6 k/uL (0-1.0); Monocytes % (A) 6 %; Neutrophils # (A) 5.8 k/uL (1.3-7.7); Neutrophils % (A) 56 %; Platelet Count 110 k/uL (150-450); RBC 5.42 m/uL (3.80-5.40); RDW 13.4 % (11.5-15.5); WBC 10.3 k/uL (3.8-10.6)
[2021-04-12 08:25] LABS: ALT 99 U/L (4-34); AST 112 U/L (14-36); African American GFR (CKD) >90 (>60 ml/min/1.73 sqM); Albumin 4.9 g/dL (3.5-5.0); Alkaline Phosphatase 78 U/L (38-126); Anion Gap 12 mmol/L; Bilirubin, Delta 0.4 mg/dL (0.0-0.2); Bilirubin,Unconjugated 1.2 mg/dL (0.0-1.1); Blood Urea Nitrogen 19 mg/dL (7-17); Calcium 9.6 mg/dL (8.4-10.2); Carbon Dioxide 21 mmol/L (22-30); Chloride 103 mmol/L (98-107); Glucose 117 mg/dL (74-99); Non-African American GFR(CKD) 79 (>60 ml/min/1.73 sqM); Potassium 4.3 mmol/L (3.5-5.1); Sodium 136 mmol/L (137-145); Total Bilirubin 1.6 mg/dL (0.2-1.3); Total Protein 8.5 g/dL (6.3-8.2)
[2021-04-12] MEDS ORDERED: OLANZapine 2.5 MG TAB PO SCH ×2 (12:15→21:00)
[2021-04-12] MEDS ORDERED: OLANZapine 5 MG TAB PO ONE (12:20)
[2021-04-12] MEDS ORDERED: diphenhydrAMINE 25 MG CAP PO PRN (12:28)
--- NOTE | 2021-04-12 12:28 | P.HP ---
Psychiatric H&P - . H&P Date: 04/12/21 History & Physical: Allergies Allergy/AdvReac Type Severity Reaction Status Date / Time gabapentin From Neurontin Allergy Swelling Verified 04/11/21 21:13 haloperidol From Haldol Allergy Unknown Verified 04/11/21 21:13 haloperidol lactate Allergy Unknown Verified 04/11/21 21:13 From Haldol ketorolac From Toradol Allergy Anaphylaxis Verified 04/11/21 21:13 latex Allergy RED SKIN Verified 04/11/21 21:13 aripiprazole From Abilify AdvReac Unknown Verified 04/11/21 21:13 risperidone From Risperdal AdvReac Unknown Verified 04/11/21 21:13 tramadol HCl From Ultram AdvReac Unknown Verified 04/11/21 21:13 ziprasidone HCl From Geodon AdvReac Unknown Verified 04/11/21 21:13 ziprasidone mesylate AdvReac Unknown Verified 04/11/21 21:13 From Geodon Vital Signs Temp 97.9 F 04/12/21 02:00 Pulse 88 04/12/21 02:00 Resp 16 04/12/21 02:00 BP 141/84 04/12/21 02:00 Pulse Ox 96 04/12/21 02:00 Intake & Output 04/11/21 04/12/21 04/12/21 18:59 06:59 18:59 Weight 77.111 kg Laboratory Last Values WBC 10.3 k/uL (3.8-10.6) 04/12/21 07:41 RBC 5.42 m/uL (3.80-5.40) H 04/12/21 07:41 Hgb 16.6 gm/dL (11.4-16.0) H 04/12/21 07:41 Hct 50.0 % (34.0-46.0) H 04/12/21 07:41 MCV 92.3 fL (80.0-100.0) 04/12/21 07:41 MCH 30.6 pg (25.0-35.0) 04/12/21 07:41 MCHC 33.2 g/dL (31.0-37.0) 04/12/21 07:41 RDW 13.4 % (11.5-15.5) 04/12/21 07:41 Plt Count 110 k/uL (150-450) L 04/12/21 07:41 MPV 8.8 04/12/21 07:41 Neutrophils % 56 % 04/12/21 07:41 Lymphocytes % 33 % 04/12/21 07:41 Monocytes % 6 % 04/12/21 07:41 Eosinophils % 3 % 04/12/21 07:41 Basophils % 1 % 04/12/21 07:41 Neutrophils # 5.8 k/uL (1.3-7.7) 04/12/21 07:41 Lymphocytes # 3.4 k/uL (1.0-4.8) 04/12/21 07:41 Monocytes # 0.6 k/uL (0-1.0) 04/12/21 07:41 Eosinophils # 0.3 k/uL (0-0.7) 04/12/21 07:41 Basophils # 0.1 k/uL (0-0.2) 04/12/21 07:41 Sodium 136 mmol/L (137-145) L 04/12/21 07:41 Potassium 4.3 mmol/L (3.5-5.1) 04/12/21 07:41 Chloride 103 mmol/L (98-107) 04/12/21 07:41 Carbon Dioxide 21 mmol/L (22-30) L 04/12/21 07:41 Anion Gap 12 mmol/L 04/12/21 07:41 BUN 19 mg/dL (7-17) H 04/12/21 07:41 Creatinine 0.84 mg/dL (0.52-1.04) 04/12/21 07:41 Est GFR (CKD-EPI)AfAm >90 (>60 ml/min/1.73 sqM) 04/12/21 07:41 Est GFR (CKD-EPI)NonAf 79 (>60 ml/min/1.73 sqM) 04/12/21 07:41 Glucose 117 mg/dL (74-99) H 04/12/21 07:[address] Glu mg/dL 135 04/12/21 07:41 Hemoglobin A1c 6.3 % (0.0-6.0) H 04/12/21 07:41 Calcium 9.6 mg/dL (8.4-10.2) 04/12/21 07:41 Magnesium 1.8 mg/dL (1.6-2.3) 04/11/21 20:39 Total Bilirubin 1.6 mg/dL (0.2-1.3) H 04/12/21 07:41 Conjugated Bilirubin 0.0 mg/dL (0.0-0.3) 04/12/21 07:41 Unconjugated Bilirubin 1.2 mg/dL (0.0-1.1) H 04/12/21 07:41 Delta Bilirubin 0.4 mg/dL (0.0-0.2) H 04/12/21 07:41 AST 112 U/L (14-36) H 04/12/21 07:41 ALT 99 U/L (4-34) H 04/12/21 07:41 Alkaline Phosphatase 78 U/L (38-126) 04/12/21 07:41 Total Protein 8.5 g/dL (6.3-8.2) H 04/12/21 07:41 Albumin 4.9 g/dL (3.5-5.0) 04/12/21 07:41 TSH 4.880 mIU/L (0.465-4.680) H 04/12/21 07:41 Urine HCG, Qual Not Detected (Not Detectd) 04/11/21 20:29 Urine Opiates Screen Detected (NotDetected) H 04/11/21 20:29 Ur Oxycodone Screen Not Detected (NotDetected) 04/11/21 20:29 Urine Methadone Screen Detected (NotDetected) H 04/11/21 20:29 Ur Propoxyphene Screen Not Detected (NotDetected) 04/11/21 20:29 Ur Barbiturates Screen Not Detected (NotDetected) 04/11/21 20:29 U Tricyclic Antidepress Not Detected (NotDetected) 04/11/21 20:29 Ur Phencyclidine Scrn Not Detected (NotDetected) 04/11/21 20:29 Ur Amphetamines Screen Detected (NotDetected) H 04/11/21 20:29 U Methamphetamines Scrn Detected (NotDetected) H 04/11/21 20:29 U Benzodiazepines Scrn Detected (NotDetected) H 04/11/21 20:29 Urine Cocaine Screen Detected (NotDetected) H 04/11/21 20:29 U Marijuana (THC) Screen Detected (NotDetected) H 04/11/21 20:29 Serum Alcohol <10 mg/dL 04/11/21 20:39 Coronavirus (PCR) Not Detected (Not Detectd) 04/12/21 03:13 04/12/21 12:18 IDENTIFYING DATA: Patient is a 55-year-old female with a history of polysubstance abuse who currently lives with her in a house has no kids and collects Social Security. HPI: Patient presented to the hospital yesterday on petition by police. Patient apparently was making suicidal comments and threats about possibly jumping off a bridge. Patient has an extensive history of polysubstance abuse and had a UDS which was positive for opiates, methadone, methamphetamine, amphetamines, benzodiazepines, cocaine and marijuana. Patient also has a history of apparently being on methadone at [facility] however this has not been confirmed yet. Patient was seen wandering the hallways today and agreeable to speak to medical writer. She was very intrusive and labile and tearful during conversation. She states that her is having "an affair" with "probably a rich woman". She was accusing him repeatedly of having an affair with her. She states that she was threatened by him and he wanted to "put me in here". She states that they've been for 18 years. She was tangential, circumstantial loose associations. She was fairly uncooperative and demanding. She claims that she takes under and 35 mg of methadone a day however has missed one or 2 doses recently. She states that she has been on the methadone "for years" so that she wouldn't go back on heroin. She states that she did abuse some drugs recently however was vague and guarded about what she was using. She states that she feels "freaked out" and also endorses feeling depressed. She was labile and tearful. She was endorsing significant paranoia today. She claims her sleep and appetite has been poor. Patient denies any current suicidal or homicidal ideations intent or plan. At this time patient denies any auditory or visual hallucinations. Patient has a flight of ideas, difficult to redirect. Admits to using various different drugs including benzos, meth, opiates and cocaine also marijuana and nicotine. PAST PSYCHIATRIC HISTORY: Patient states that she has history of polysubstance abuse and mood disorder. Patient was previously on Klonopin, trazodone and other psychotropic medications in the past. She states that her last psychiatric hospitalization was in 2009. She claims that she follows up at [facility] with her psychiatrist. She claims that she overdosed once several years ago. Past Medical History: Heart Failure, COPD, Fibromyalgia, Hypertension, Liver Disease, Osteoarthritis (OA), Seizure Disorder Additional Past Medical History / Comment(s): Other HX: hep c, chronic pain issues= chronic headaches chronic back pain, bronchitis, arthirits in back and bilateral hips, pancreatic cyst, ALLERGIES: as per EMR CHEMICAL DEPENDENCY HISTORY: as per HPI FAMILY PSYCHIATRIC/SUBSTANCE USE HISTORY: Claims that her sister committed suicide. SOCIAL HISTORY: Patient was born and raised in [place]. She states that she completed up to ninth grade in school. 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 She states that she has no kids and collects SSI. She currently lives with her in a house. She went to group home in 2016 for cocaine possession. MENTAL STATUS EXAM: General Appearance: Patient appears to be overweight, disheveled in appearance, several missing teeth, older than stated age is alert, difficult to redirect and labile. Patient appears to have poor hygiene and grooming. Behavior: Patient is seated without any agitated behavior. Labile. Tearful at times and impulsive. Speech: Patient's speech is fluent and nonpressured. Loud at times. Mood/Affect: Patient reports their mood is "sad", affect is congruent Suicidality/Homicidality: Patient denies having any homicidal ideation intent or plan. Denies any suicidal ideations intent or plan Perceptions: Patient denies any visual hallucinations and denies any auditory hallucinations Though content/process: Loose associations, illogical. Paranoid. Demanding. Memory and concentration: AOX3, grossly intact for the purposes of this session. Can spell "WORLD" backwards Judgment and insight: poor/impulsive STRENGTHS/WEAKNESSES: strength is that patient is resilient. Weakness is that patient has poor judgment and is impulsive INTELLECT: average IMPRESSIONS: Bipolar disorder, with mixed features Cannabis use disorder Cocaine abuse Benzodiazepine abuse Opioid use disorder Methamphetamine abuse Nicotine dependence PLAN: -Patient is admitted under voluntary status to MHU for stabilization of psychiatric symptoms and safety. Patient has not signed [medication consent] and is placed in patient's chart. -Medications : Will start patient on Zyprexa 5 mg now with 7.5 mg daily at bedtime for mood stabilization/insomnia. We'll hold off on benzodiazepines at this time. will attempt to contact [facility] today to inquire about methadone dosing. -Ativan and Proliixin PRN for agitation/aggression [-Patient was counselled on substance abuse and desired to cut back on use] -Patient was informed of the risks, benefits and side effects of the medication and patient verbally consented to taking the medications. Patient signed med consent form and was placed in chart. -Internal Medicine consult to perform medical evaluation and physical. -NRT - [nicotine patch] -SW on board for discharge planning. Encourage patient to participate in groups to work on coping skills. [] 04/12/21 12:21
[2021-04-12] MEDS: METHADONE 10 MG TAB PO SCH (13:47)
[2021-04-12 19:07] LABS: Urine Alcohol Negative (Negative); Urine Barbiturate Negative (Negative); Urine Cocaine Positive (Negative); Urine Methadone Positive (Negative); Urine Opiates Negative (Negative); Urine Phencyclidine Negative (Negative)
[2021-04-12] MEDS ORDERED: traZODone HCL 50 MG TAB PO SCH (21:00)
[2021-04-12] MEDS ORDERED: QUEtiapine 50 MG TAB PO SCH (21:00)
--- NOTE | 2021-04-13 06:58 | P.CONS ---
History of Present Illness - Reason for Consult Consult date: 04/13/21 - History of Present Illness The patient is an 85-year-old female with a PMH of polysubstance abuse, COPD, fibromyalgia, and psychiatric illnesses including anxiety and depression who was brought to the emergency room under police custody due to erratic behavior as well as suicidal ideation. The patient was admitted to [facility] where she was seen and evaluated. The patient reports having relapsed from her substance use, and using multiple substances including methamphetamine, cocaine, marijuana over the past few days. She reports being concerned that her is cheating on her and trying to get rid of her. She denied any particular plan but documentation states the patient was planning on jumping off the [place] bridge. Patient denied any physical complaints at the time of interview. Denied chest discomfort, shortness of breath, fever, chills, cough, nausea, vomiting, abdominal pain, diarrhea. Review of systems: Pertinent positives and negatives as discussed in HPI, a complete review of systems was performed and all other systems are negative. Physical examination: General: non toxic, no distress, appears at stated age, normal weight Derm: no unusual rashes/lesions no unusual ecchymoses, warm, dry Head: atraumatic, normocephalic, symmetric Eyes: EOMI, no lid lag, anicteric sclera, pupils equal round reactive to light ENT: Nose and ears atraumatic, no thrush, no pharyngeal erythema Neck: No thyromegaly, no cervical lymphadenopathy, trachea midline, supple Mouth: no lip lesion, mucus membranes moist Cardiovascular: S1S2 reg, no murmur, positive posterior tibial pulse bilateral, no edema, capillary refill less than 2 seconds Lungs: CTA bilateral, no rhonchi, no rales , no accessory muscle use Abdominal: soft, nontender to palpation, no guarding, no appreciable organomegaly, normal bowel sounds Ext: no gross muscle atrophy, muscle strength 5 out of 5 in all 4 extremities grossly, no contractures, Neuro: CN II-XI grossly intact, light touch intact all 4 extremities, finger to nose within normal limits, Psych: Alert, oriented, disorganized thought process Assessment/plan Polysubstance abuse -Advised on importance of cessation Chronic conditions: COPD, fibromyalgia -Patient does not use any inhalers at this time -Continue the remaining home medications Depression and suicidal ideation -As per psychiatry Thank you for allowing us to participate in the care of this patient. We will follow peripherally. Do not hesitate to contact us with questions. Someone can be reached from the [facility] hospitalist group at all hours of the day at [phone]. Past Medical History Past Medical History: Heart Failure, COPD, Fibromyalgia, Hypertension, Liver Disease, Osteoarthritis (OA), Seizure Disorder Additional Past Medical History / Comment(s): Other HX: hep c, chronic pain issues= chronic headaches chronic back pain, bronchitis, arthirits in back and bilateral hips, pancreatic cyst, History of Any Multi-Drug Resistant Organisms: None Reported Past Surgical History: Appendectomy, Back Surgery, Hysterectomy, Tubal Ligation Additional Past Surgical History / Comment(s): brain surgery for aneurysm has titanium clip in place., back surgery L4-L5, oral surgery. Past Anesthesia/Blood Transfusion Reactions: No Reported Reaction, Motion Sickness Additional Past Anesthesia/Blood Transfusion Reaction / Comm: Pt states she has never recieved blood. vertigo, clauterphobia Past Psychological History: Anxiety, Depression, Panic Disorder, PTSD Smoking Status: Current every day smoker Past Alcohol Use History: None Reported Past Drug Use History: None Reported - Past Family History Father Family Medical History: Cancer Additional Family Medical History / Comment(s): Father of throat cancer at 78 yrs of age. Mother Additional Family Medical History / Comment(s): Mother of a brain aneurysm at age 44. Medications and Allergies Home Medications Medication Instructions Recorded Confirmed Type QUEtiapine [SEROquel] 50 mg PO HS 04/11/21 04/11/21 History clonazePAM [KlonoPIN] 0.5 mg PO BID PRN 04/11/21 04/11/21 History traZODone HCL [Desyrel] 50 mg PO HS 04/11/21 04/11/21 History Allergies Allergy/AdvReac Type Severity Reaction Status Date / Time gabapentin [From Neurontin] Allergy Swelling Verified 04/11/21 21:13 haloperidol [From Haldol] Allergy Unknown Verified 04/11/21 21:13 haloperidol lactate Allergy Unknown Verified 04/11/21 21:13 [From Haldol] ketorolac [From Toradol] Allergy Anaphylaxis Verified 04/11/21 21:13 latex Allergy RED SKIN Verified 04/11/21 21:13 aripiprazole [From Abilify] AdvReac Unknown Verified 04/11/21 21:13 risperidone [From Risperdal] AdvReac Unknown Verified 04/11/21 21:13 tramadol HCl [From Ultram] AdvReac Unknown Verified 04/11/21 21:13 ziprasidone HCl [From Geodon] AdvReac Unknown Verified 04/11/21 21:13 ziprasidone mesylate AdvReac Unknown Verified 04/11/21 21:13 [From Geodon] Results CBC & Chem 7: 04/12/21 07:41 04/12/21 07:41 Labs: Abnormal Lab Results - Last 24 Hours (Table) 04/11/21 04/12/21 04/12/21 Range/Units 20:29 07:41 07:41 RBC 5.42 H (3.80-5.40) m/uL Hgb 16.6 H (11.4-16.0) gm/dL Hct 50.0 H (34.0-46.0) % Plt Count 110 L (150-450) k/uL Sodium 136 L (137-145) mmol/L Carbon Dioxide 21 L (22-30) mmol/L BUN 19 H (7-17) mg/dL Glucose 117 H (74-99) mg/dL Hemoglobin A1c (0.0-6.0) % Total Bilirubin 1.6 H (0.2-1.3) mg/dL Unconjugated Bilirubin 1.2 H (0.0-1.1) mg/dL Delta Bilirubin 0.4 H (0.0-0.2) mg/dL AST 112 H (14-36) U/L ALT 99 H (4-34) U/L Total Protein 8.5 H (6.3-8.2) g/dL TSH 4.880 H (0.465-4.680) mIU/L Urine Methadone Screen Positive A (Negative) Ur Amphetamine Screen Positive A (Negative) U Benzodiazepines Scrn Positive A (Negative) Urine Cocaine Screen Positive A (Negative) U Cannabinoids Screen Positive A (Negative) 04/12/21 Range/Units 07:41 RBC (3.80-5.40) m/uL Hgb (11.4-16.0) gm/dL Hct (34.0-46.0) % Plt Count (150-450) k/uL Sodium (137-145) mmol/L Carbon Dioxide (22-30) mmol/L BUN (7-17) mg/dL Glucose (74-99) mg/dL Hemoglobin A1c 6.3 H (0.0-6.0) % Total Bilirubin (0.2-1.3) mg/dL Unconjugated Bilirubin (0.0-1.1) mg/dL Delta Bilirubin (0.0-0.2) mg/dL AST (14-36) U/L ALT (4-34) U/L Total Protein (6.3-8.2) g/dL TSH (0.465-4.680) mIU/L Urine Methadone Screen (Negative) Ur Amphetamine Screen (Negative) U Benzodiazepines Scrn (Negative) Urine Cocaine Screen (Negative) U Cannabinoids Screen (Negative)
[2021-04-13] MEDS: NICOTINE 14MG/24HR PATCH TRANSDERM SCH (08:37)
[2021-04-13] MEDS: METHADONE 10 MG TAB PO SCH (08:37)
[2021-04-13] MEDS: LORazepam 2 MG/ML INJ IM PRN ×2 (09:11→18:47)
--- NOTE | 2021-04-13 09:57 | P.PN ---
Progress Note - Text Progress Note Date: 04/13/21 Interval History: Patient was seen wandering the hallways after taking her medications this morn ing and was directable and agreeable to speak with movie writer in the office. Patient claims that she is still feeling anxious and upset that she is not restarted back on her benzodiazepines and was consistently going back to asking and demanding controlled medications. She was still labile however was not tearful today. She was mildly more directable during conversation. She continues to be paranoid at times about movie writer and states that "did not her ready fire you". She states that she still believes her "set me up" with drugs and also was speaking about her relapse recently and believes that she is not a "bad person". She claims that she did not sleep well last night approximately 4-5 hours and continues to be very hesitant with medications. She is agreeable to continue on with Zyprexa and have that increased however is denying and not wanting to be started on any mood stabilizing medication. As a fair appetite. At this time patient denies any suicidal or homical ideations, intent or plan. Patient denies any auditory, visual hallucinations. Patient denies any side effects from the medications and has been compliant with meds. Mental Status Exam: General Appearance: Patient appears to be overweight, disheveled in appearance, several missing teeth, older than stated age is alert, difficult to redirect and labile. improving hygiene and grooming. Behavior: Patient is seated without any agitated behavior. Labile, improving mildly. At times difficult to redirect. Speech: Patient's speech is fluent and nonpressured. Mood/Affect: Patient reports their mood is "the same", affect is congruent and labile, improving mildly. Suicidality/Homicidality: Patient denies having any homicidal ideation intent or plan. Denies any suicidal ideations intent or plan Perceptions: Patient denies any visual hallucinations and denies any auditory hallucinations Though content/process: Loose associations, illogical, proving mildly. Paranoid, improving midlly. Demanding. Memory and concentration: AOX3, grossly intact for the purposes of this session Judgment and insight: poor/impulsive, improving mildly IMPRESSIONS: Bipolar disorder, with mixed features Cannabis use disorder Cocaine abuse Benzodiazepine abuse Opioid use disorder Methamphetamine abuse Nicotine dependence Plan: -Patient continues to meet criteria for inpatient psychiatric admission for symptom stabilization and safety. Patient has signed adult voluntary form and was placed in patient's chart. -Medications: increased Zyprexa 10 mg + 2.5 mg daily at bedtime for mood stabilization/insomnia. We'll hold off on benzodiazepines at this time. restarted methadone at 30 mg daily for opioid use disorder. Patient at this time is refusing mood stabilizer and wants to only remian on zyprexa and requesting controlled meds. -When necessary Ativan and Haldol for agitation/aggression. -NRT - nicotine patch -SW on board for discharge planning. Encouraged the patient to participate in milieu.
[2021-04-13] MEDS: OLANZapine 2.5 MG TAB PO SCH (11:13)
[2021-04-14] MEDS: OLANZapine 10 MG TAB PO SCH ×2 (07:28→21:20)
[2021-04-14] MEDS: OLANZapine 2.5 MG TAB PO SCH (09:17)
[2021-04-14] MEDS: METHADONE 10 MG TAB PO SCH (09:17)
[2021-04-14] MEDS: NICOTINE 14MG/24HR PATCH TRANSDERM SCH (09:17)
[2021-04-14] MEDS: LORazepam 2 MG/ML INJ IM PRN (15:26)
--- NOTE | 2021-04-14 16:32 | P.PN ---
Progress Note - Text Progress Note Date: 04/14/21 Progress note Apr 14 2021 She was seen today for review of her progress. she continued to complain of beign ignored of her BENZODIAZPINE needs. She was off methadone and was restarted for pain control, after her brain aneurysm reapr. she did not tolerable buprenorphone or Suboxone. She was highly protected of her need for opiate and dismissed the risks involved in combining with regular dosages of clonazepam 0.5-1 mg bid instead of 0.5 mg po prn bid. She was tolerating the combined rx with resolution of her psychotic symptoms of hallucinations and threatening behavior when she relapsed on CRYSTAL METH. She was aware of the detrimental effect on her relatiionship with her male friend. SHe was demanding for early discharge: However, I reassured her to plan for follow up before discharge. MSE: irritable at times, preoccupied with BENZodiazpeine. but no somatic pain . No craving for CYRSTAL. No hallucinations no delusion. No homicidal or suicidal ideation. Cognition: oriented fair insight into her conditon Plan; She continue to fulfil inpatient psychiatric admission as of today engage pt to addiction recovery program contact her boyfriend regarding her relapse and milieu sueveillance regarding drug craving signals RX compliance importance to prevent relapse Diagnosis : Schizoaffective disorder. Crystal METH induced psychosis.
[2021-04-15 06:32] VITALS: BP 123/91; PULSE 102; TEMP 97.5
[2021-04-15] MEDS: NICOTINE 14MG/24HR PATCH TRANSDERM SCH (08:34)
[2021-04-15] MEDS: OLANZapine 2.5 MG TAB PO SCH (08:35)
[2021-04-15] MEDS: METHADONE 10 MG TAB PO SCH (08:35)
--- NOTE | 2021-04-15 14:14 | P.DS ---
Providers Date of admission: 04/12/21 05:01 Discharge summary She was seen yesterday by me to assess her progress. There was overall improvement in her functional status. She participated in the [facility] milieu and continued to be adherent towards medication. Regarding her substance use, she preferred to continue her recovery in the community. She regretted she relapsed on a single dose of Crystal meth resulting in her behavioural outbursts directed towards . She was visited by him over the evening. She demanded again for discharge. On the issue of methadone and BNZ, she found it difficult to accept our recommendations. She was well aware of the interaction between opioids and BNZ as increased risk for overdose. She bargained unsuccessfully to be on a higher dosage of BNZ ; craving for BNZ was evident. Today she complained of Opiate withdrawal ; diarrhoea with no cramp or muscle strain. She said she would prefer to be on a higher dosage of opiate . Given her back pain , and history of Opiate USe disorder, she might no longer benefit form inpatient [facility] Her discharge diagnosis was bipolar disorder most recent mixed episode comorbid substance use: psychotimulant : Cocaine, Crystal. Opioid Misuse disorder Discharge medication was given No methadone was given She would approach her outpatient mental health center for follow up Attending physician: Jean Moody MD Consults: 04/12/21 05:03 Consult Physician Routine Consulting Provider: [facility] Consult Reason/Comments: H & P w/medical management Do you want consulting provider notified?: Already Contacted Primary care physician: Stated None Patient Condition at Discharge: Stable Plan - Discharge Summary New Discharge Prescriptions: New OLANZapine [ZyPREXA] 2.5 mg PO DAILY #30 tab OLANZapine [ZyPREXA] 10 mg PO HS #30 tab Continue traZODone HCL [Desyrel] 50 mg PO HS 30 Days tab Discontinued QUEtiapine [SEROquel] 50 mg PO HS Discharge Medication List OLANZapine [ZyPREXA] 2.5 mg PO DAILY #30 tab 04/15/21 [Rx] OLANZapine [ZyPREXA] 10 mg PO HS #30 tab 04/15/21 [Rx] traZODone HCL [Desyrel] 50 mg PO HS 30 Days tab 04/15/21 [Rx] Follow up Appointment(s)/Referral(s): [facility], [facility] [Other] - 04/16/21 8:00 am () None,Stated [Primary Care Provider] - 1-2 days Activity/Diet/Wound Care/Special Instructions: Activity and diet as tolerated. Avoid the use of street drugs and alcohol. Take all medications as prescribed. When you are in need of refills on your medications please contact your medical provider and/or outpatient psychiatrist to have this done. Please go to scheduled outpatient appointment for aftercare treatment. If symptoms return or become worse, call the crisis line at and/or go to the nearest emergency room for evaluation Discharge Disposition: HOME SELF-CARE
== END 2021-04-15 20:20 | disposition home or self-care (01) | DRG 885 ==
LOC: EC 19:44 → 3MHU 04-12 05:01
PROVIDERS: ADMIT Psychiatry & Neurology Psychiatry; ATTEND Psychiatry & Neurology Psychiatry
DX: F31.60 Bipolar disorder, current episode mixed, unspecified (principal); R45.851 Suicidal ideations; F11.10 Opioid abuse, uncomplicated; F12.10 Cannabis abuse, uncomplicated; F13.10 Sedative, hypnotic or anxiolytic abuse, uncomplicated; F14.10 Cocaine abuse, uncomplicated; F15.159 Other stimulant abuse with stimulant-induced psychotic disorder, unspecified; F17.210 Nicotine dependence, cigarettes, uncomplicated; F25.9 Schizoaffective disorder, unspecified; F41.0 Panic disorder [episodic paroxysmal anxiety]; F43.10 Post-traumatic stress disorder, unspecified; G40.909 Epilepsy, unspecified, not intractable, without status epilepticus; I50.9 Heart failure, unspecified; I11.0 Hypertensive heart disease with heart failure; I67.1 Cerebral aneurysm, nonruptured; J44.9 Chronic obstructive pulmonary disease, unspecified; M79.7 Fibromyalgia; Z80.0 Family history of malignant neoplasm of digestive organs; Z90.710 Acquired absence of both cervix and uterus; Z98.51 Tubal ligation status; Z81.8 Family history of other mental and behavioral disorders; Z98.890 Other specified postprocedural states; F40.240 Claustrophobia; Z71.51 Drug abuse counseling and surveillance of drug abuser; Z63.0 Problems in relationship with spouse or partner
CPT/HCPCS: 36415; 80048; 80053; 80306; 80320; 81025; 82075; 82248; 83036; 83735; 84443; 85025; 87635; 93005; 96361; 96374; 96376; 99285

== ENCOUNTER 2021-04-30 14:27 | Emergency (ER) | payer MEDICARE, OTHER ==
[2021-04-30 14:30] VITALS: BP 133/91; PULSE 91; RESP 18; TEMP 98
[2021-04-30] MEDS ORDERED: MORPHINE SULFATE 4 MG/ML SYRINGE IM STA (14:49)
--- NOTE | 2021-04-30 15:18 | XR ---
EXAMINATION TYPE: XR KUB DATE OF EXAM: 04/30/2021 COMPARISON: 06/11/2016 HISTORY: Abdominal pain TECHNIQUE: 2 views upright FINDINGS: There is normal evidence of intestinal obstruction or pneumoperitoneum. Fecal pattern is no rmal. Lung bases are clear. There are no pathologic calcifications over the kidneys. IMPRESSION: Nonacute abdomen. No change.
[2021-04-30 15:26] LABS: Appearance,Urine Turbid (Clear); Bacteria,Urine Occasional /hpf; Bilirubin,Urine 2+ (Negative); Blood,Urine Small (Negative); Color,Urine Dark Brown; Glucose,Urine (UA) Negative (Negative); Ketones,Urine Negative (Negative); Leukocyte Esterase,Urine Large (Negative); Nitrite,Urine Positive (Negative); Protein,Urine 1+ (Negative); RBC,Urine 74 /hpf (0-5); Specific Gravity,Urine 1.017 (1.001-1.035); Squamous Epithelial Cell,Urine 2 /hpf (0-4); WBC,Urine >182 /hpf (0-5)
[2021-04-30] MEDS ORDERED: cefTRIAXone 1,000 MG VIAL (IM USE) IM STA (15:57)
--- NOTE | 2021-04-30 16:19 | ED ---
General Adult HPI - General Chief complaint: Urogenital Stated complaint: kidney stone Time Seen by Provider: 04/30/21 14:41 Source: patient, RN notes reviewed Mode of arrival: ambulatory Limitations: no limitations - History of Present Illness Initial comments: 55-year-old female with a past medical history of heart failure, COPD, fibromyalgia, hypertension, seizure disorder presents to the emergency room for chief complaint of dysuria. Patient states she has had painful urination for the past 2 or 3 days. States the pain is at her urethra. She is also having some mild low back pain. Denies any upper back pain. Denies any fevers or chills. Denies significant abdominal pain.Patient has no other complaints at this time including shortness of breath, chest pain, abdominal pain, nausea or vomiting, headache, or visual changes. - Related Data Previous Rx's Medication Instructions Recorded OLANZapine [ZyPREXA] 2.5 mg PO DAILY #30 tab 04/15/21 OLANZapine [ZyPREXA] 10 mg PO HS #30 tab 04/15/21 traZODone HCL [Desyrel] 50 mg PO HS 30 Days tab 04/15/21 Cephalexin [Keflex] 500 mg PO Q6HR 10 Days #40 cap 04/30/21 Allergies Allergy/AdvReac Type Severity Reaction Status Date / Time gabapentin [From Neurontin] Allergy Swelling Verified 04/30/21 14:28 haloperidol [From Haldol] Allergy Unknown Verified 04/30/21 14:28 haloperidol lactate Allergy Unknown Verified 04/30/21 14:28 [From Haldol] ketorolac [From Toradol] Allergy Anaphylaxis Verified 04/30/21 14:28 latex Allergy RED SKIN Verified 04/30/21 14:28 aripiprazole [From Abilify] AdvReac Unknown Verified 04/30/21 14:28 risperidone [From Risperdal] AdvReac Unknown Verified 04/30/21 14:28 tramadol HCl [From Ultram] AdvReac Unknown Verified 04/30/21 14:28 ziprasidone HCl [From Geodon] AdvReac Unknown Verified 04/30/21 14:28 ziprasidone mesylate AdvReac Unknown Verified 04/30/21 14:28 [From Geodon] Review of Systems ROS Statement: Those systems with pertinent positive or pertinent negative responses have been documented in the HPI. ROS Other: All systems not noted in ROS Statement are negative. Past Medical History Past Medical History: Heart Failure, COPD, Fibromyalgia, Hypertension, Liver Disease, Osteoarthritis (OA), Seizure Disorder Additional Past Medical History / Comment(s): Other HX: hep c, chronic pain is sues= chronic headaches chronic back pain, bronchitis, arthirits in back and bilateral hips, pancreatic cyst, History of Any Multi-Drug Resistant Organisms: None Reported Past Surgical History: Appendectomy, Back Surgery, Hysterectomy, Tubal Ligation Additional Past Surgical History / Comment(s): brain surgery for aneurysm has titanium clip in place., back surgery L4-L5, oral surgery. Past Anesthesia/Blood Transfusion Reactions: No Reported Reaction, Motion Sickness Additional Past Anesthesia/Blood Transfusion Reaction / Comment(s): Pt states she has never recieved blood. vertigo, clauterphobia Past Psychological History: Anxiety, Depression, Panic Disorder, PTSD Smoking Status: Current every day smoker Past Alcohol Use History: None Reported Past Drug Use History: None Reported - Past Family History Father Family Medical History: Cancer Additional Family Medical History / Comment(s): Father of throat cancer at 78 yrs of age. Mother Additional Family Medical History / Comment(s): Mother of a brain aneurysm at age 44. General Exam Limitations: no limitations General appearance: alert, in no apparent distress Head exam: Present: atraumatic Eye exam: Present: normal appearance, PERRL, EOMI. Absent: scleral icterus, conjunctival injection ENT exam: Present: normal exam, mucous membranes moist Neck exam: Present: normal inspection, full ROM. Absent: tenderness Respiratory exam: Present: normal lung sounds bilaterally. Absent: respiratory distress, wheezes Cardiovascular Exam: Present: regular rate, normal rhythm, normal heart sounds GI/Abdominal exam: Present: soft, normal bowel sounds. Absent: distended, tenderness Back exam: Absent: CVA tenderness (R), CVA tenderness (L) Neurological exam: Present: alert Course Vital Signs 04/30/21 14:28 Temperature 98 F Pulse Rate 91 Respiratory 18 Rate Blood Pressure 133/91 O2 Sat by Pulse 95 Oximetry Medical Decision Making - Medical Decision Making Vitals are stable. Patient is well-appearing. No abdominal tenderness. No CVA tenderness. Patient is having some mild low back pain as well as pain near her urethra with urinating. XR KUB is negative. Urinalysis does show a nitrite- positive urine with greater than 182 white blood cells and many white blood cell clumps. at this time without CVA tenderness patient does not clinically have pyelonephritis. We will treat her with rocephin IM and oral atnibiotics at home. She will follow up with her doctor. She was given strict return parameters. - Lab Data Lab Results 04/30/21 Range/Units 15:02 Urine Color Dark Brown Urine Appearance Turbid H (Clear) Urine pH 7.0 (5.0-8.0) Ur Specific [place] 1.017 (1.001-1.035) Urine Protein 1+ H (Negative) Urine Glucose (UA) Negative (Negative) Urine Ketones Negative (Negative) Urine Blood Small H (Negative) Urine Nitrite Positive H (Negative) Urine Bilirubin 2+ H (Negative) Urine Urobilinogen 6.0 (<2.0) mg/dL Ur Leukocyte Esterase Large H (Negative) Urine RBC 74 H (0-5) /hpf Urine WBC >182 H (0-5) /hpf Urine WBC Clumps Many H (None) /hpf Ur Squamous Epith Cells 2 (0-4) /hpf Urine Bacteria Occasional H (None) /hpf Disposition Clinical Impression: Urinary tract infection Disposition: HOME SELF-CARE Condition: Good Instructions (If sedation given, give patient instructions): Urinary Tract Infection in Women (ED) Additional Instructions: Take antibiotics as directed. Drink plenty of fluids. Follow up with primary care in 1-2 days. Return to the ER for any worsening symptoms. Prescriptions: Cephalexin [Keflex] 500 mg PO Q6HR 10 Days #40 cap Is patient prescribed a controlled substance at d/c from ED?: No Referrals: Sherman Cheung DO [Primary Care Provider] - 1-2 days Time of Disposition: 16:26
== END 2021-04-30 16:44 | disposition home or self-care (01) ==
LOC: EC 14:27
DX: N39.0 Urinary tract infection, site not specified (principal); F17.200 Nicotine dependence, unspecified, uncomplicated; J44.9 Chronic obstructive pulmonary disease, unspecified; I11.0 Hypertensive heart disease with heart failure; I50.9 Heart failure, unspecified; Z88.5 Allergy status to narcotic agent; Z88.6 Allergy status to analgesic agent; Z88.8 Allergy status to other drugs, medicaments and biological substances; Z91.040 Latex allergy status; Z88.1 Allergy status to other antibiotic agents
CPT/HCPCS: 81001; 87491; 87591; 87086; 74018; 99283; 96372; J2270; J0696; 87077; 87186

== ENCOUNTER 2021-06-17 08:08 | Emergency (ER) | payer MEDICARE, OTHER ==
[2021-06-17 08:14] VITALS: BP 141/97; TEMP 97.9
[2021-06-17] MEDS ORDERED: IPRATROPIUM-ALBUTEROL 3 ML NEB INHALATION STA (08:21)
--- NOTE | 2021-06-17 08:26 | ED ---
General Adult HPI - General Chief complaint: Upper Respiratory Infection Stated complaint: Congestion Time Seen by Provider: 06/17/21 08:15 Source: patient, RN notes reviewed, old records reviewed Mode of arrival: ambulatory Limitations: no limitations - History of Present Illness Initial comments: 55-year-old female presents ambulatory with complaints of cough for 1 week. Patient states that her back hurts when she takes a breath and coughs. She denies any fevers, no nausea vomiting or diarrhea. She states no chest pain. She does have a history of COPD and is a current smoker. She states she hasn't seen her doctor in a while and only has a little bit of albuterol left that she's been trying to use for relief. She states her sputum is green in color -: week(s) (1) Location: back (mid) Radiation: non-radiation Severity scale (1-10): 3 Quality: aching Improves with: none Associated Symptoms: cough, other (congestion) Treatments Prior to Arrival: other (albuterol) - Related Data Previous Rx's Medication Instructions Recorded OLANZapine [ZyPREXA] 2.5 mg PO DAILY #30 tab 04/15/21 OLANZapine [ZyPREXA] 10 mg PO HS #30 tab 04/15/21 traZODone HCL [Desyrel] 50 mg PO HS 30 Days tab 04/15/21 Cephalexin [Keflex] 500 mg PO Q6HR 10 Days #40 cap 04/30/21 Albuterol Inhaler [Ventolin Hfa 2 puff INHALATION Q4H PRN #8 gm 06/17/21 Inhaler] Doxycycline Monohydrate [Monodox] 100 mg PO Q12HR 5 Days #10 cap 06/17/21 Fluconazole [Diflucan] 150 mg PO ONCE #2 tab 06/17/21 predniSONE 50 mg PO DAILY #5 tab 06/17/21 Allergies Allergy/AdvReac Type Severity Reaction Status Date / Time gabapentin [From Neurontin] Allergy Swelling Verified 06/17/21 08:14 haloperidol [From Haldol] Allergy Unknown Verified 06/17/21 08:14 haloperidol lactate Allergy Unknown Verified 06/17/21 08:14 [From Haldol] ketorolac [From Toradol] Allergy Anaphylaxis Verified 06/17/21 08:14 latex Allergy RED SKIN Verified 06/17/21 08:14 aripiprazole [From Abilify] AdvReac Unknown Verified 06/17/21 08:14 risperidone [From Risperdal] AdvReac Unknown Verified 06/17/21 08:14 tramadol HCl [From Ultram] AdvReac Unknown Verified 06/17/21 08:14 ziprasidone HCl [From Geodon] AdvReac Unknown Verified 06/17/21 08:14 ziprasidone mesylate AdvReac Unknown Verified 06/17/21 08:14 [From Geodon] Review of Systems ROS Statement: Those systems with pertinent positive or pertinent negative responses have been documented in the HPI. ROS Other: All systems not noted in ROS Statement are negative. Past Medical History Past Medical History: Heart Failure, COPD, Fibromyalgia, Hypertension, Liver Disease, Osteoarthritis (OA), Seizure Disorder Additional Past Medical History / Comment(s): Other HX: hep c, chronic pain issues= chronic headaches chronic back pain, bronchitis, arthirits in back and bilateral hips, pancreatic cyst, History of Any Multi-Drug Resistant Organisms: None Reported Past Surgical History: Appendectomy, Back Surgery, Hysterectomy, Tubal Ligation Additional Past Surgical History / Comment(s): brain surgery for aneurysm has titanium clip in place., back surgery L4-L5, oral surgery. Past Anesthesia/Blood Transfusion Reactions: No Reported Reaction, Motion Sickness Additional Past Anesthesia/Blood Transfusion Reaction / Comment(s): Pt states she has never recieved blood. vertigo, clauterphobia Past Psychological History: Anxiety, Depression, Panic Disorder, PTSD Smoking Status: Current every day smoker Past Alcohol Use History: None Reported Past Drug Use History: None Reported - Past Family History Father Family Medical History: Cancer Additional Family Medical History / Comment(s): Father of throat cancer at 78 yrs of age. Mother Additional Family Medical History / Comment(s): Mother of a brain aneurysm at age 44. General Exam Limitations: no limitations General appearance: alert, in no apparent distress Head exam: Present: atraumatic ENT exam: Present: mucous membranes moist, other (left periauricular nodule pt states benign) Neck exam: Present: normal inspection, full ROM. Absent: tenderness, meningismus, lymphadenopathy Respiratory exam: Present: normal lung sounds bilaterally. Absent: respiratory distress, wheezes, rales, rhonchi, stridor, chest wall tenderness, accessory muscle use, decreased breath sounds Cardiovascular Exam: Present: regular rate, normal rhythm Extremities exam: Present: normal capillary refill Neurological exam: Present: alert, oriented X3, normal gait Psychiatric exam: Present: normal affect, normal mood Skin exam: Present: warm, dry, normal color. Absent: cyanosis, diaphoretic, petechiae, pallor Course Vital Signs 06/17/21 06/17/21 06/17/21 08:11 08:45 08:54 Temperature 97.9 F Pulse Rate 64 68 68 Respiratory 16 18 16 Rate Blood Pressure 141/97 O2 Sat by Pulse 97 Oximetry 06/17/21 09:02 Temperature Pulse Rate Respiratory 18 Rate Blood Pressure O2 Sat by Pulse Oximetry Medical Decision Making - Medical Decision Making Patient presents with increased cough for one week with sputum change green in color. Denies any fevers or chest pain. Oxygen saturation 97%. She was given a DuoNeb treatment in the emergency room. Chest x-ray does not show an acute cardiopulmonary process. She was placed on doxycycline, prednisone and given an albuterol inhaler. Directed to follow up with primary care doctor and return with any new or conc erning symptoms and stop smoking. Case discussed with Dr. Penaloza. Patient agreeable to this plan of care. Disposition Clinical Impression: COPD exacerbation Disposition: HOME SELF-CARE Condition: Good Instructions (If sedation given, give patient instructions): COPD (Chronic Obstructive Pulmonary Disease) (ED) Additional Instructions: Take antibiotics as prescribed in addition to the prednisone. Use the albuterol, 2 puffs every 4 hours as needed. Follow-up with your primary care doctor this week and return to the emergency room with any new or concerning symptoms. Continue to try to quit smoking. Prescriptions: Fluconazole [Diflucan] 150 mg PO ONCE #2 tab Doxycycline Monohydrate [Monodox] 100 mg PO Q12HR 5 Days #10 cap predniSONE 50 mg PO DAILY #5 tab Albuterol Inhaler [Ventolin Hfa Inhaler] 2 puff INHALATION Q4H PRN #8 gm PRN Reason: Dyspnea Is patient prescribed a controlled substance at d/c from ED?: No Referrals: Sherman Cheung DO [Primary Care Provider] - 1-2 days Time of Disposition: 09:01
[2021-06-17 08:48] VITALS: PULSE 68
--- NOTE | 2021-06-17 09:01 | XR ---
EXAMINATION TYPE: XR chest 2V DATE OF EXAM: 06/17/2021 COMPARISON: 01/11/2019 TECHNIQUE: PA and lateral views submitted. HISTORY: Cough FINDINGS: The lungs are clear and there is no pneumothorax, pleural effusion, or focal pneumonia. Hyperinflat ion suggests COPD. Heart size normal. Degenerative change of the spine. No overt failure. IMPRESSION: 1. No acute process. Correlate for COPD.
[2021-06-17 09:05] VITALS: RESP 18
== END 2021-06-17 09:08 | disposition home or self-care (01) ==
LOC: EC 08:08
DX: J44.1 Chronic obstructive pulmonary disease with (acute) exacerbation (principal); I11.0 Hypertensive heart disease with heart failure; I50.9 Heart failure, unspecified; G40.909 Epilepsy, unspecified, not intractable, without status epilepticus; M19.90 Unspecified osteoarthritis, unspecified site; M79.7 Fibromyalgia; F17.200 Nicotine dependence, unspecified, uncomplicated; Z79.51 Long term (current) use of inhaled steroids; Z79.899 Other long term (current) drug therapy
CPT/HCPCS: 71046; 94640; 99283

== ENCOUNTER 2021-09-02 12:45 | Emergency (ER) | payer MEDICARE, OTHER ==
[2021-09-02 12:48] VITALS: BP 186/94; PULSE 96; RESP 20; TEMP 98.4
== END 2021-09-02 15:10 | disposition left against medical advice (07) ==
LOC: EC 12:45
DX: Z53.21 Procedure and treatment not carried out due to patient leaving prior to being seen by health care provider (principal)
CPT/HCPCS: 93005; 99284

== ENCOUNTER → 2021-12-03 | Outpatient (CLI) | payer MEDICARE, OTHER | END | disposition home or self-care (01) | LOC: LABWHC1 10:29 | PROVIDERS: ATTEND Family Medicine | DX: F31.9 Bipolar disorder, unspecified (principal) | CPT/HCPCS: 36415; 80178 ==

== ENCOUNTER 2022-09-29 12:22 | Emergency (ER) | payer MEDICARE, OTHER ==
[2022-09-29 12:36] VITALS: BP 117/77; PULSE 88; RESP 18; TEMP 98.4
[2022-09-29 12:59] LABS: Appearance,Urine Cloudy (Clear); Bacteria,Urine Rare /hpf; Bilirubin,Urine 2+ (Negative); Blood,Urine Negative (Negative); Color,Urine Dark Brown; Glucose,Urine (UA) Negative (Negative); Ketones,Urine Negative (Negative); Leukocyte Esterase,Urine Large (Negative); Mucus,Urine Rare /hpf; Nitrite,Urine Positive (Negative); Protein,Urine Trace (Negative); RBC,Urine 9 /hpf (0-5); Squamous Epithelial Cell,Urine 2 /hpf (0-4); WBC,Urine >182 /hpf (0-5)
== END 2022-09-29 15:11 | disposition left against medical advice (07) ==
LOC: EC 12:22
DX: R30.9 Painful micturition, unspecified (principal); B96.20 Unspecified Escherichia coli [E. coli] as the cause of diseases classified elsewhere; I10 Essential (primary) hypertension; F17.200 Nicotine dependence, unspecified, uncomplicated; Z53.21 Procedure and treatment not carried out due to patient leaving prior to being seen by health care provider
CPT/HCPCS: 81001; 87077; 87086; 87186; 99499

== ENCOUNTER → 2023-04-12 | Outpatient (CLI) | payer MEDICARE, OTHER ==
[2023-04-13 03:15] LABS: ALT 129 U/L (8-44); AST 117 U/L (13-35); Albumin 4.3 g/dL (3.8-4.9); Albumin/Globulin Ratio 1.43 Ratio (1.60-3.17); Alkaline Phosphatase 82 U/L (41-126); BUN/Creat Ratio 15.86 Ratio (12.00-20.00); Blood Urea Nitrogen 11.1 mg/dL (9.0-27.0); Calcium 9.4 mg/dL (8.7-10.3); Carbon Dioxide 23.2 mmol/L (21.6-31.8); Chloride 102 mmol/L (96-109); Glucose 97 mg/dL (70-110); Lithium <0.10 mmol/L (0.50-1.20); Potassium 5.3 mmol/L (3.5-5.5); Sodium 139 mmol/L (135-145); Total Bilirubin 0.4 mg/dL (0.3-1.2); Total Protein 7.3 g/dL (6.2-8.2)
== END | disposition home or self-care (01) ==
LOC: LABWHC1 14:51
PROVIDERS: ATTEND Psychiatry & Neurology Psychiatry
DX: Z51.81 Encounter for therapeutic drug level monitoring (principal); I10 Essential (primary) hypertension; E03.9 Hypothyroidism, unspecified; E07.9 Disorder of thyroid, unspecified; R78.89 Finding of other specified substances, not normally found in blood; Z79.899 Other long term (current) drug therapy
CPT/HCPCS: 36415; 80053; 80178; 84443

== ENCOUNTER 2024-09-03 19:10 | Emergency (ER) | payer MEDICARE, OTHER ==
[2024-09-03 19:17] VITALS: TEMP 99
[2024-09-03 19:36] LABS: Bilirubin,Urine 2+ (Negative); Blood,Urine Large (Negative); Color,Urine Dark Brown; Glucose,Urine (UA) Negative (Negative); Ketones,Urine Negative (Negative); Leukocyte Esterase,Urine Large (Negative); Mucus,Urine Moderate /hpf; Nitrite,Urine Positive (Negative); PH, Urine 6.0 (5.0-8.0); Protein,Urine 2+ (Negative); RBC,Urine >182 /hpf (0-5); Specific Gravity,Urine 1.021 (1.001-1.035); Urobilinogen,Urine 6.0 mg/dL (<2.0); WBC,Urine >182 /hpf (0-5)
--- NOTE | 2024-09-03 19:37 | ED ---
Female Urogenital HPI - General Chief complaint: Urogenital Stated complaint: greer when urinating Time Seen by Provider: 09/03/24 19:23 Source: patient Mode of arrival: ambulatory Limitations: no limitations - History of Present Illness Initial comments: 58-year-old female presented with chief complaint of "I have a UTI". Patient is having burning urgency and frequency. Ongoing for few days. No flank pain, fever, chills, nausea, vomiting. Feels like UTIs she has had previously. Patient also tells me that often when she has antibiotics she gets a yeast infection and is requesting some Diflucan should she be written any antibiotics today. She has no other complaints. - Related Data Previous Rx's Medication Instructions Recorded OLANZapine [ZyPREXA] 2.5 mg PO DAILY #30 tab 04/15/21 OLANZapine [ZyPREXA] 10 mg PO HS #30 tab 04/15/21 traZODone HCL [Desyrel] 50 mg PO HS 30 Days tab 04/15/21 Cephalexin [Keflex] 500 mg PO Q6HR 10 Days #40 cap 04/30/21 Albuterol Inhaler [Ventolin Hfa 2 puff INHALATION Q4H PRN #8 gm 06/17/21 Inhaler] Doxycycline Monohydrate [Monodox] 100 mg PO Q12HR 5 Days #10 cap 06/17/21 Fluconazole [Diflucan] 150 mg PO ONCE #2 tab 06/17/21 predniSONE 50 mg PO DAILY #5 tab 06/17/21 Fluconazole [Diflucan] 150 mg PO ONCE #2 tab 09/03/24 Phenazopyridine [Pyridium] 100 mg PO TID #6 tablet 09/03/24 Sulfamethox-Tmp 800-160Mg [Bactrim 1 tab PO Q12HR 7 Days #14 tab 09/03/24 DS 800-160 mg] Allergies Allergy/AdvReac Type Severity Reaction Status Date / Time gabapentin [From Neurontin] Allergy Swelling Verified 09/03/24 19:18 haloperidol [From Haldol] Allergy Unknown Verified 09/03/24 19:18 haloperidol lactate Allergy Unknown Verified 09/03/24 19:18 [From Haldol] ketorolac [From Toradol] Allergy Anaphylaxis Verified 09/03/24 19:18 latex Allergy RED SKIN Verified 09/03/24 19:18 aripiprazole [From Abilify] AdvReac Unknown Verified 09/03/24 19:18 risperidone [From Risperdal] AdvReac Unknown Verified 09/03/24 19:18 tramadol HCl [From Ultram] AdvReac Unknown Verified 09/03/24 19:18 ziprasidone HCl [From Geodon] AdvReac Unknown Verified 09/03/24 19:18 ziprasidone mesylate AdvReac Unknown Verified 09/03/24 19:18 [From Geodon] Review of Systems ROS Statement: Those systems with pertinent positive or pertinent negative responses have been documented in the HPI. ROS Other: All systems not noted in ROS Statement are negative. Past Medical History Past Medical History: Heart Failure, COPD, Fibromyalgia, Hypertension, Liver Disease, Osteoarthritis (OA), Seizure Disorder Additional Past Medical History / Comment(s): Other HX: hep c, chronic pain issues= chronic headaches chronic back pain, bronchitis, arthirits in back and bilateral hips, pancreatic cyst, History of Any Multi-Drug Resistant Organisms: None Reported Past Surgical History: Appendectomy, Back Surgery, Hysterectomy, Tubal Ligation Additional Past Surgical History / Comment(s): brain surgery for aneurysm has titanium clip in place., back surgery L4-L5, oral surgery. Past Anesthesia/Blood Transfusion Reactions: No Reported Reaction, Motion Sickness Additional Past Anesthesia/Blood Transfusion Reaction / Comment(s): Pt states she has never recieved blood. vertigo, clauterphobia Past Psychological History: Anxiety, Depression, Panic Disorder, PTSD Smoking Status: Current every day smoker Past Alcohol Use History: None Reported Past Drug Use History: None Reported - Past Family History Father Family Medical History: Cancer Additional Family Medical History / Comment(s): Father of throat cancer at 78 yrs of age. Mother Additional Family Medical History / Comment(s): Mother of a brain aneurysm at age 44. General Exam Limitations: no limitations General appearance: alert, in no apparent distress Head exam: Present: atraumatic, normocephalic, normal inspection Eye exam: Present: normal appearance, EOMI Neck exam: Present: normal inspection. Absent: meningismus Respiratory exam: Absent: respiratory distress Cardiovascular Exam: Present: regular rate GI/Abdominal exam: Absent: distended Neurological exam: Present: alert, oriented X3 Psychiatric exam: Present: normal affect, normal mood Skin exam: Present: warm, dry, normal color Course Vital Signs 09/03/24 09/03/24 09/03/24 19:15 19:42 20:13 Temperature 99.0 F Pulse Rate 98 97 89 Respiratory 18 12 20 Rate Blood Pressure 141/93 135/99 136/98 O2 Sat by Pulse 95 99 96 Oximetry Medical Decision Making - Medical Decision Making Was pt. sent in by a medical professional or institution (, [facility], [employer], urgent care, hospital, or [facility]...) When possible be specific @ -No Did you speak to anyone other than the patient for history (EMS, parent, family, police, friend...)? What history was obtained from this source @ -No Did you review nursing and triage notes (agree or disagree)? Why? @ -I reviewed and agree with nursing and triage notes Were old charts reviewed (outside hosp., previous admission, EMS record, old EKG, old radiological studies, urgent care reports/EKG's, [facility] records)? Report findings @ -No old charts were reviewed Differential Diagnosis (chest pain, altered mental status, abdominal pain women, abdominal pain men, vaginal bleeding, weakness, fever, dyspnea, syncope, headache, dizziness, GI bleed, back pain, seizure, CVA, palpatations, mental health, musculoskeletal)? @ -Differential includes UTI, kidney stone, pyelonephritis, noninclusive last EKG interpreted by me (3pts min.). @ -As above X-rays interpreted by me (1pt min.). @ -None done CT interpreted by me (1pt min.). @ -None done U/S interpreted by me (1pt. min.). @ -None done What testing was considered but not performed or refused? (CT, X-rays, U/S, labs)? Why? @ -None What meds were considered but not given or refused? Why? @ -None Did you discuss the management of the patient with other professionals (professionals i.e. , [facility], [employer] WORK[employer], lab, RT, psych nurse, social service assistant, rider ticket worker, teacher, classification officer, nurse case manager)? Give summary @ -No Was smoking cessation discussed for >3mins.? @ -No Was critical care preformed (if so, how long)? @ -No Were there social determinants of health that impacted care today? How? ( Homelessness, low income, unemployed, alcoholism, drug addiction, transportation, low edu. Level, literacy, decrease access to med. care, [facility] [facility], rehab)? @ -No Was there de-escalation of care discussed even if they declined (Discuss DNR or withdrawal of care, Hospice)? DNR status @ -No What co-morbidities impacted this encounter? (DM, HTN, Smoking, COPD, CAD, Cancer, CVA, ARF, Chemo, Hep., AIDS, mental health diagnosis, sleep apnea, morbid obesity)? @ -None Was patient admitted / discharged? Hospital course, mention meds given and route, prescriptions, significant lab abnormalities, going to OR and other pertinent info. @ -58-year-old female presenting chief complaint of discomfort with urination she believes she has a UTI. Workup was initiated by triage and patient was later evaluated by myself. Urine appears positive for urinary tract infection. Will treat with Bactrim. Patient is also requesting Diflucan and Pyridium. She is educated on today's findings and treatment plan. Follow-up with PCP. Report back to ER with any new or worsening symptoms. Discussed return parameters and answered all questions. Patient conveyed verbal understanding and agreed to the plan. I discussed this case in detail with my attending Dr. Guillaume Undiagnosed new problem with uncertain prognosis? @ -No Drug Therapy requiring intensive monitoring for toxicity (Heparin, Nitro, Insulin, Cardizem)? @ -No Were any procedures done? @ -No Diagnosis/symptom? @ -UTI Acute, or Chronic, or Acute on Chronic? @ -Acute Uncomplicated (without systemic symptoms) or Complicated (systemic symptoms)? @ -Uncomplicated Side effects of treatment? @ -No Exacerbation, Progression, or Severe Exacerbation? @ -No Poses a threat to life or bodily function? How? (Chest pain, [place], [place], pneumonia, PE, COPD, DKA, ARF, appy, cholecystitis, CVA, Diverticulitis, Homicidal, Suicidal, threat to staff... and all critical care pts) @ -Unlikely - Lab Data Lab Results 09/03/24 Range/Units 19:18 Urine Color Dark Brown Urine Appearance Turbid H (Clear) Urine pH 6.0 (5.0-8.0) Ur Specific [place] 1.021 (1.001-1.035) Urine Protein 2+ H (Negative) Urine Glucose (UA) Negative (Negative) Urine Ketones Negative (Negative) Urine Blood Large H (Negative) Urine Nitrite Positive H (Negative) Urine Bilirubin 2+ H (Negative) Urine Urobilinogen 6.0 (<2.0) mg/dL Ur Leukocyte Esterase Large H (Negative) Urine RBC >182 H (0-5) /hpf Urine WBC >182 H (0-5) /hpf Urine WBC Clumps Many H (None) /hpf Urine Mucus Moderate H (None) /hpf Disposition Clinical Impression: UTI (urinary tract infection) Disposition: HOME SELF-CARE Condition: Good Instructions (If sedation given, give patient instructions): Urinary Tract Infection in Women (ED) Additional Instructions: Follow-up with PCP. Report back to ER with any new or worsening symptoms. Take medication as prescribed. Note that Pyridium may cause your urine to turn o range. Prescriptions: Sulfamethox-Tmp 800-160Mg [Bactrim DS 800-160 mg] 1 tab PO Q12HR 7 Days #14 tab Fluconazole [Diflucan] 150 mg PO ONCE #2 tab Phenazopyridine [Pyridium] 100 mg PO TID #6 tablet Is patient prescribed a controlled substance at d/c from ED?: No Referrals: None,Stated [Primary Care Provider] - 1-2 days Forms: Area PCPs Time of Disposition: 19:49
[2024-09-03] MEDS: SULFAMETHOX-TMP 800-160MG 1 EACH TAB PO STA (20:09)
[2024-09-03] MEDS: PHENAZOPYRIDINE 100 MG TAB PO STA (20:09)
[2024-09-03 20:14] VITALS: BP 136/98; PULSE 89; RESP 20
== END 2024-09-03 20:14 | disposition home or self-care (01) ==
LOC: EC 19:10
DX: N39.0 Urinary tract infection, site not specified (principal); F17.200 Nicotine dependence, unspecified, uncomplicated; Z88.6 Allergy status to analgesic agent; Z88.8 Allergy status to other drugs, medicaments and biological substances; Z91.040 Latex allergy status
CPT/HCPCS: 81001; 87077; 87086; 87186; 99283